=== PATIENT | male | born 1990 | race Caucasian/White ===

== ENCOUNTER 2016-04-16 16:33 | Emergency (ER) | payer BC, OTHER ==
[2016-04-16] MEDS ORDERED: SODIUM CHLORIDE 0.9% 1,000 ML IV STA (16:46)
[2016-04-16] MEDS ORDERED: ONDANSETRON 4 MG/2 ML VIAL IVP STA (16:46)
[2016-04-16] MEDS ORDERED: KETOROLAC 30 MG/ML 1 ML VIAL IVP STA (16:46)
[2016-04-16] MEDS ORDERED: MORPHINE SULFATE 4 MG/ML SYRINGE IVP STA (16:46)
--- NOTE | 2016-04-16 16:52 | ED ---
Abdominal Pain HPI - General Chief Complaint: Abdominal Pain Stated Complaint: Side Pain Time Seen by Provider: 04/16/16 16:41 Source: patient Mode of arrival: wheelchair Limitations: no limitations - History of Present Illness Initial Comments: Patient's a 25-year-old male presenting with left flank pain which radiates to the groin. Patient states pain started an hour prior to arrival. Nothing tried for pain. Patient is unable to sit still due to pain. Mom states family history of kidney stones. Patient admits to drinking a lot of soda. Admits to dysuria. Denies fever, chills, chest, shortness breath, vomiting, diarrhea. - Related Data Previous Rx's Medication Instructions Recorded HYDROcodone/APAP 5-325MG [Newton 5] 1 each PO Q4HR PRN #20 tab 04/16/16 Ibuprofen [Motrin] 600 mg PO Q6HR PRN #20 tab 04/16/16 Ondansetron [Zofran ODT] 4 mg PO Q8HR #12 tab 04/16/16 Allergies Allergy/AdvReac Type Severity Reaction Status Date / Time No Known Allergies Allergy Verified 04/16/16 16:52 Review of Systems ROS Statement: Those systems with pertinent positive or pertinent negative responses have been documented in the HPI. Constitutional: No fever and no chills. HENT: No congestion, no rhinorrhea and no sore throat. Eyes: No discharge and no redness. Respiratory: No cough and no shortness of breath. Cardiovascular: No chest pain and no palpitations. Gastrointestinal: +nausea, no vomiting, +abdominal pain and no diarrhea. Genitourinary: +dysuria and no hematuria. Musculoskeletal: +back pain and no arthralgias. Skin: No pallor and no rash. Neurological: No dizziness and No headaches. ROS Other: All systems not noted in ROS Statement are negative. Past Medical History Past Medical History: No Reported History History of Any Multi-Drug Resistant Organisms: None Reported Past Surgical History: No Surgical Hx Reported Past Psychological History: No Psychological Hx Reported Smoking Status: Current every day smoker Past Alcohol Use History: Daily Past Drug Use History: None Reported General Exam - General Exam Comments Initial Comments: Constitutional: Patient appears well-developed and well-nourished. Severe distress. Head: Normocephalic and atraumatic. Eyes: Conjunctivae and EOM are normal. Right eye exhibits no discharge. Left eye exhibits no discharge. No scleral icterus. Neck: Normal range of motion. Neck supple. Cardiovascular: Normal rate and regular rhythm. No murmur heard. Pulmonary/Chest: Effort normal and breath sounds normal. No respiratory distress. No wheezes. Abdominal: Soft. No distension. Diffuse tenderness. There is no rebound and no guarding. : Exam completed with nurse at bedside no hernias inguinal or femoral. Normal lie of testicles. Musculoskeletal: Normal range of motion. Left CVA tenderness Neurological: Patient alert and oriented to person, place, and time. Skin: Skin is warm and dry. Not diaphoretic. Nursing notes and vitals reviewed. Limitations: no limitations Course Vital Signs 04/16/16 16:37 Temperature 98.1 F Pulse Rate 87 Respiratory 22 Rate Blood Pressure 136/78 O2 Sat by Pulse 100 Oximetry - Reevaluation(s) Reevaluation #1: 04/16/16 17:15 Patient medicated with morphine, Toradol, Zofran and feeling much better. IV fluids infusing. Reevaluation #2: 04/16/16 18:28 Patient given repeated doses of Dilaudid 0.5 mg with improvement of pain. Patient offered hospitalization for intractable pain. Patient states he wants to go home and will return for any worsening pain, nausea/vomiting, fever/ chills. Medical Decision Making - Medical Decision Making Patient is a 25-year-old male presenting with acute onset left-sided flank pain. UA with hematuria. CBC, BMP unremarkable for leukocytosis or impaired kidney function. CT abdomen/pelvis shows a 3 mm obstructive ureteral lithiasis without hydronephrosis. Patient's pain controlled with IV fluids/morphine/ Toradol and Zofran. Patient required a second dose of Dilaudid 0.5 mg. Patient was offered hospitalization for intractable pain however he would like to go home and manage pain with Newton 5 mg, Motrin 600 mg. Prior to discharge, patient was resting in bed. Course of stay improved. Tolerable pain. Discussed physical exam and diagnostic tests with patient. Questions answered and patient is agreeable to discharge with close follow up with Primary Care Physician. Instructed to return to Emergency Department if symptoms worsen. Patient strictly instructed to return for any fever or chills, worsening pain, nausea/ vomiting, altered mental status. - Lab Data Result diagrams: 04/16/16 16:33 04/16/16 16:33 Lab Results 04/16/16 04/16/16 04/16/16 Range/Units 16:33 16:33 16:33 WBC 9.4 (3.8-10.6) k/uL RBC 5.22 (4.30-5.90) m/uL Hgb 14.7 (13.0-17.5) gm/dL Hct 44.7 (39.0-53.0) % MCV 85.6 (80.0-100.0) fL MCH 28.1 (25.0-35.0) pg MCHC 32.8 (31.0-37.0) g/dL RDW 12.4 (11.5-15.5) % Plt Count 196 (150-450) k/uL Neutrophils % 48 % Lymphocytes % 42 % Monocytes % 6 % Eosinophils % 2 % Basophils % 0 % Neutrophils # 4.5 (1.3-7.7) k/uL Lymphocytes # 3.9 (1.0-4.8) k/uL Monocytes # 0.5 (0-1.0) k/uL Eosinophils # 0.2 (0-0.7) k/uL Basophils # 0.0 (0-0.2) k/uL Sodium 142 (137-145) mmol/L Potassium 3.1 L (3.5-5.1) mmol/L Chloride 104 (98-107) mmol/L Carbon Dioxide 20 L (22-30) mmol/L Anion Gap 18 mmol/L BUN 13 (9-20) mg/dL Creatinine 0.95 (0.66-1.25) mg/dL Est GFR (MDRD) Af Amer >60 (>60 ml/min/1.73 sqM) Est GFR (MDRD) Non-Af >60 (>60 ml/min/1.73 sqM) Glucose 129 H (74-99) mg/dL Calcium 9.9 (8.4-10.2) mg/dL Magnesium 1.7 (1.6-2.3) mg/dL Total Bilirubin 0.6 (0.2-1.3) mg/dL AST 22 (17-59) U/L ALT 29 (21-72) U/L Alkaline Phosphatase 67 (38-126) U/L Total Protein 7.5 (6.3-8.2) g/dL Albumin 4.8 (3.5-5.0) g/dL Lipase 38 (23-300) U/L Urine Color Yellow Urine Appearance Clear (Clear) Urine pH 5.5 (5.0-8.0) Ur Specific Tyler 1.024 (1.001-1.035) Urine Protein Trace H (Negative) Urine Glucose (UA) Negative (Negative) Urine Ketones Trace H (Negative) Urine Blood Moderate H (Negative) Urine Nitrate Negative (Negative) Urine Bilirubin Negative (Negative) Urine Urobilinogen <2.0 (<2.0) mg/dL Ur Leukocyte Esterase Trace H (Negative) Urine RBC >182 H (0-5) /hpf Urine WBC 6 H (0-5) /hpf Ur Squamous Epith Cells <1 (0-4) /hpf Urine Mucus Few H (None) /hpf Disposition Clinical Impression: Ureterolithiasis Disposition: HOME SELF-CARE Condition: Good Prescriptions: HYDROcodone/APAP 5-325MG [Newton 5] 1 each PO Q4HR PRN #20 tab PRN Reason: Pain Ibuprofen [Motrin] 600 mg PO Q6HR PRN #20 tab PRN Reason: Pain Ondansetron [Zofran ODT] 4 mg PO Q8HR #12 tab Referrals: Dariela Nunez MD [Primary Care Provider] - 1-2 days Dillon Barbosa MD [STAFF PHYSICIAN] - 1-2 days
[2016-04-16 17:08] LABS: CH 28.9; MCV 85.6 fL (80.0-100.0); RDW 12.4 % (11.5-15.5)
[2016-04-16 17:15] LABS: Appearance,Urine Clear (Clear); Bilirubin,Urine Negative (Negative); Glucose,Urine (UA) Negative (Negative); Ketones,Urine Trace (Negative); Leukocyte Esterase,Urine Trace (Negative); Mucus,Urine Few /hpf; Nitrite,Urine Negative (Negative); PH, Urine 5.5 (5.0-8.0); Particle Count 6684; Protein,Urine Trace (Negative); RBC,Urine >182 /hpf (0-5); Specific Gravity,Urine 1.024 (1.001-1.035); Squamous Epithelial Cell,Urine <1 /hpf (0-4); UA Billing (MACRO vs. MICRO) MICRO; Urobilinogen,Urine <2.0 mg/dL (<2.0); WBC,Urine 6 /hpf (0-5)
[2016-04-16 17:17] LABS: Basophils % (A) 0 %; CHCM 33.9; Eosinophils # (A) 0.2 k/uL (0-0.7); Eosinophils % (A) 2 %; HCT 44.7 % (39.0-53.0); HDW 2.46; HGB 14.7 gm/dL (13.0-17.5); Luc # (Auto) 0.24; Luc % (Auto) 3; Lymphocytes # (A) 3.9 k/uL (1.0-4.8); Lymphocytes % (A) 42 %; MCH 28.1 pg (25.0-35.0); MCHC 32.8 g/dL (31.0-37.0); Mean Platelet Volume 8.4; Monocytes # (A) 0.5 k/uL (0-1.0); Monocytes % (A) 6 %; Neutrophils # (A) 4.5 k/uL (1.3-7.7); Neutrophils % (A) 48 %; RBC 5.22 m/uL (4.30-5.90); WBC 9.4 k/uL (3.8-10.6); WBC (Perox) 9.25
[2016-04-16 17:21] LABS: ALT 29 U/L (21-72); AST 22 U/L (17-59); Alkaline Phosphatase 67 U/L (38-126); Anion Gap 18 mmol/L; Blood Urea Nitrogen 13 mg/dL (9-20); Calcium 9.9 mg/dL (8.4-10.2); Carbon Dioxide 20 mmol/L (22-30); Chloride 104 mmol/L (98-107); Glucose 129 mg/dL (74-99); Magnesium 1.7 mg/dL (1.6-2.3); Non-African American GFR(MDRD) >60 (>60 ml/min/1.73 sqM); Potassium 3.1 mmol/L (3.5-5.1); Sodium 142 mmol/L (137-145); Total Bilirubin 0.6 mg/dL (0.2-1.3); Total Protein 7.5 g/dL (6.3-8.2)
[2016-04-16] MEDS ORDERED: HYDROmorphone 1 MG/ML 1 ML SYRINGE IVP STA (17:31)
--- NOTE | 2016-04-16 18:04 | CT ---
EXAMINATION TYPE: CT renal stones wo con DATE OF EXAM: 04/16/2016 5:33 PM COMPARISON: NONE HISTORY: 25-year-old male left-sided flank pain. TECHNIQUE: Contiguous axial scanning of the abdomen and pelvis without IV contrast. Coronal and sagit snehal reconstructions performed. CT DLP: 401.3 mGycm Automated exposure control for dose reduction was used. FINDINGS: Is normal size without pericardial effusion. Lung bases clear without pleural effusion. Noncontrast appearance of the liver, gallbladder, adrenal glands, spleen with small hilar splenule, a nd pancreas show no gross abnormality. Numerous scattered nonenlarged borderline enlarged mesenteric lymph nodes measure up to 5 mm and are probably reactive. Nonobstructive 6 mm right lower pole renal calculus. A few punctate 2 mm calculi mid pole left kidney. A punctate 1 to 2 mm calculus is noted in the upper third left ureter axial image 56 with a larger 3 mm calculus distally just prior to the left UVJ, axial image 123. Minimal left-sided pelvicaliectasis . No dilated small bowel, free fluid, or free air. Normal appendix. Mild stool within the right hemicol on. No pericolonic inflammatory change. Bladder nondistended. A phlebolith within the right hemipelvis. No abnormal fluid collection in the p isiah or pelvic lymphadenopathy seen. 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 No osseous destructive process. IMPRESSION: 1. A 3 MM CALCULUS IN THE DISTAL LEFT URETER WITH MINIMAL FULLNESS OF THE LEFT RENAL COLLECTING SYSTE M. NO BRANDON HYDRONEPHROSIS. AN ADDITIONAL TINY 1 TO 2 MM CALCULUS IS NOTED IN THE UPPER THIRD LEFT UR ETER. 2. A COUPLE BILATERAL NONOBSTRUCTIVE RENAL CALCULI MEASURING UP TO 6 MM ON THE RIGHT. 3. SCATTERED NONENLARGED AND BORDERLINE ENLARGED MESENTERIC LYMPH NODES ARE PROBABLY REACTIVE/POST IN FLAMMATORY. 4. RIGHT L5 PARS DEFECT. THERE IS SOME SCLEROSIS AT THE LEFT-SIDED L5 PARS SUGGESTING SOME STRESS HERNANDO CTION. QUERY ANY LOW BACK PAIN.
[2016-04-16 18:29] VITALS: BP 132/69; PULSE 70; RESP 18; TEMP 97.9
== END 2016-04-16 18:36 | disposition home or self-care (01) ==
LOC: EC 16:33
DX: N20.1 Calculus of ureter (principal); F17.200 Nicotine dependence, unspecified, uncomplicated
CPT/HCPCS: 80053; 83690; 83735; 85025; 81001; 87086; 74150; 99284; 96374; 96375 ×3; 96361; J2270; J2405; J1885; J1170

== ENCOUNTER 2016-07-21 12:23 | Emergency (ER) | payer OTHER ==
[2016-07-21 12:47] VITALS: BP 138/85; PULSE 71; RESP 18; TEMP 97.2
--- NOTE | 2016-07-21 12:54 | ED ---
ENT HPI - General Chief complaint: Dental/Oral Stated complaint: Dental Pain Time Seen by Provider: 07/21/16 12:48 Source: patient, RN notes reviewed Mode of arrival: ambulatory Limitations: no limitations - History of Present Illness Initial comments: 26-year-old male presented emergency Department chief complaint dental pain. Patient states pain is been going on for last 3-4 weeks. Patient states that he has insurance problems and has been unable to follow-up with dentist. Patient states that he cannot see the dental clinic initially because he canceled to appointments in the past. Patient denies fever, chills. Patient states she's had severe pain. Medications aren't working and is concerned about possible infection. No fevers no chills no neck pain no headache - Related Data Previous Rx's Medication Instructions Recorded Ibuprofen [Motrin] 600 mg PO Q6HR PRN #20 tab 04/16/16 Acetaminophen-Codeine 300-30mg 1 tab PO Q4H PRN #20 tablet 07/21/16 [Tylenol #3] Penicillin V Potassium [Pen Vee K] 500 mg PO QID #40 tab 07/21/16 Allergies Allergy/AdvReac Type Severity Reaction Status Date / Time No Known Allergies Allergy Verified 07/21/16 12:47 Review of Systems ROS Statement: Those systems with pertinent positive or pertinent negative responses have been documented in the HPI. ROS Other: All systems not noted in ROS Statement are negative. Past Medical History Past Medical History: No Reported History History of Any Multi-Drug Resistant Organisms: None Reported Past Surgical History: No Surgical Hx Reported Additional Past Surgical History / Comment(s): (L) arm surgery Past Psychological History: No Psychological Hx Reported Smoking Status: Current every day smoker Past Alcohol Use History: Daily Past Drug Use History: None Reported General Exam Limitations: no limitations General appearance: alert, in no apparent distress Head exam: Present: atraumatic, normocephalic, normal inspection Eye exam: Present: normal appearance, PERRL, EOMI. Absent: scleral icterus, conjunctival injection, periorbital swelling ENT exam: Present: mucous membranes moist, TM's normal bilaterally, normal external ear exam. Absent: normal exam, normal oropharynx (Poor dentition, multiple dental caries noted no drainable abscess) Neck exam: Present: normal inspection, full ROM. Absent: tenderness, meningismus, lymphadenopathy Respiratory exam: Present: normal lung sounds bilaterally. Absent: respiratory distress, wheezes, rales, rhonchi, stridor Cardiovascular Exam: Present: regular rate, normal rhythm, normal heart sounds. Absent: systolic murmur, diastolic murmur, rubs, gallop, clicks Course Vital Signs 07/21/16 12:43 Temperature 97.2 F L Pulse Rate 71 Respiratory 18 Rate Blood Pressure 138/85 O2 Sat by Pulse 100 Oximetry Medical Decision Making - Medical Decision Making 26-year-old male presented for dental pain. Patient was placed on antibiotics, Tylenol codeine. Patient follow-up with dentist as directed. Return parameters were discussed. Disposition Clinical Impression: Dental caries, Toothache Disposition: HOME SELF-CARE Condition: Stable Instructions: Dental Caries (ED) Additional Instructions: Please return to the Emergency Department if symptoms worsen or any other concerns.Please follow up with the [facility]. [facility] [place] [address]. Phone number for new patients or [phone] for existing patients. Prescriptions: Acetaminophen-Codeine 300-30mg [Tylenol #3] 1 tab PO Q4H PRN #20 tablet PRN Reason: pain Penicillin V Potassium [Pen Vee K] 500 mg PO QID #40 tab Referrals: Harpreet Thorne MD [Primary Care Provider] - 1-2 days Time of Disposition: 12:53
== END 2016-07-21 13:02 | disposition home or self-care (01) ==
LOC: EC 12:23
DX: K02.9 Dental caries, unspecified (principal); F17.200 Nicotine dependence, unspecified, uncomplicated
CPT/HCPCS: 99282

== ENCOUNTER 2016-08-29 11:57 | Emergency (ER) | payer OTHER ==
[2016-08-29 12:20] VITALS: BP 123/70; PULSE 90; RESP 18; TEMP 97.2
[2016-08-29] MEDS ORDERED: CLINDAMYCIN 150 MG CAP PO STA (12:53)
[2016-08-29] MEDS ORDERED: Acetaminophen-Codeine 300-30mg TAB PO STA (12:54)
--- NOTE | 2016-08-29 13:05 | ED ---
ENT HPI - General Chief complaint: Dental/Oral Stated complaint: Facial Pain Time Seen by Provider: 08/29/16 12:22 Source: patient Mode of arrival: ambulatory Limitations: no limitations - History of Present Illness Initial comments: Patient is a 26-year-old white male presenting to the emergency department with chief complaint of right-sided jaw pain radiating up to his right ear and down his right neck. Patient states he's had this pain for approximately a month and has had 4 teeth pulled within the last 3 weeks with the last one pulled on the lower right last week. Patient states that although he has had facial pain and dental pain for about a month it has increased in character over the last week to the point where he is having a difficult time sleeping and functioning at work. Pain is described as sharp, currently rated 8 out of 10, constant, exacerbated with opening his jaw. Patient states he has tried oral lidocaine and Motrin at home without relief. Patient does admit to smoking. Patient states he has a history of TMJ and grinds his teeth at night. Patient denies chills, fevers, nausea, vomiting, shortness of breath, chest pain, abdominal pain, numbness or tingling. Patient denies trismus. Patient states he follows with dentist in [facility] but hasn't seen his dentist since last week. - Related Data Previous Rx's Medication Instructions Recorded Acetaminophen-Codeine 300-30mg 1 tab PO Q4H PRN #12 tablet 08/29/16 [Tylenol #3] Acetaminophen-Codeine 300-30mg 1 tab PO Q4H PRN #20 tablet 08/29/16 [Tylenol w/codeine #3] Clindamycin [Cleocin] 450 mg PO Q8H #30 capsule 08/29/16 Cyclobenzaprine [Flexeril] 10 mg PO HS #7 tab 08/29/16 Naproxen 500 mg PO BID #14 tablet 08/29/16 Allergies Allergy/AdvReac Type Severity Reaction Status Date / Time No Known Allergies Allergy Verified 08/29/16 12:20 Review of Systems ROS Statement: Those systems with pertinent positive or pertinent negative responses have been documented in the HPI. ROS Other: All systems not noted in ROS Statement are negative. Past Medical History Past Medical History: No Reported History History of Any Multi-Drug Resistant Organisms: None Reported Past Surgical History: No Surgical Hx Reported Additional Past Surgical History / Comment(s): (L) arm surgery Past Psychological History: No Psychological Hx Reported Smoking Status: Current every day smoker Past Alcohol Use History: Daily Past Drug Use History: None Reported General Exam Limitations: no limitations General appearance: alert, in distress Head exam: Present: atraumatic, normocephalic, normal inspection Eye exam: Present: normal appearance, PERRL, EOMI. Absent: scleral icterus, conjunctival injection, periorbital swelling, periorbital tenderness ENT exam: Present: normal oropharynx, mucous membranes moist, TM's normal bilaterally, normal external ear exam Expanded Mouth exam: Present: tongue normal. Absent: drooling, trismus Teeth exam: Present: other (Possible dry socket where tooth #30 was pulled. Tender to touch.) Throat exam: normal inspection. negative: tonsillar erythema, tonsillomegaly, tonsillar exudate, R peritonsillar mass, L peritonsillar mass Neck exam: Present: tenderness (Tenderness to right sided neck with palpation), full ROM. Absent: meningismus, lymphadenopathy Respiratory exam: Present: normal lung sounds bilaterally. Absent: respiratory distress, wheezes, rales, rhonchi Cardiovascular Exam: Present: regular rate, normal rhythm, normal heart sounds. Absent: systolic murmur, diastolic murmur, rubs, gallop, clicks GI/Abdominal exam: Present: soft, normal bowel sounds. Absent: distended, tenderness Back exam: Present: normal inspection, full ROM Neurological exam: Present: alert, oriented X3, normal gait, other (No focal deficits noted.). Absent: motor sensory deficit Psychiatric exam: Present: normal affect, normal mood Skin exam: Present: warm, dry, intact, normal color Course Vital Signs 08/29/16 08/29/16 12:18 13:16 Temperature 97.2 F L 97.2 F L Pulse Rate 90 90 Respiratory 18 18 Rate Blood Pressure 123/70 123/70 O2 Sat by Pulse 98 98 Oximetry Medical Decision Making - Medical Decision Making Patient is a 26-year-old male presenting with left-sided jaw pain and pain to area of pulled tooth #30 possibly due to TMJ syndrome and dry socket. Patient placed on antibiotics, pain medication, and muscle relaxant. Patient instructed to purchase mouth guard to wear at night. Patient instructed to follow-up with dentist in next 24-48 hours. Patient instructed to follow-up with primary care physician. Patient agrees to treatment plan. Discharge instructions and return parameters reviewed. Disposition Clinical Impression: Dry tooth socket, TMJ arthralgia Disposition: HOME SELF-CARE Instructions: Temporomandibular Disorder (ED), Dry Socket (ED) Additional Instructions: This antibiotic as prescribed. Continue naproxen and Tylenol 3 for pain as needed. Continue Flexeril 10 mg at night. Stop smoking. May purchase over-the -counter mouthguard to be worn at night while sleeping. Follow-up with [place] [facility] in next 24-48 hours. Follow-up with primary care physician as directed. Please return to the emergency department if symptoms do not improve or get worse. Prescriptions: Acetaminophen-Codeine 300-30mg [Tylenol #3] 1 tab PO Q4H PRN #12 tablet PRN Reason: Pain Acetaminophen-Codeine 300-30mg [Tylenol w/codeine #3] 1 tab PO Q4H PRN #20 tablet PRN Reason: pain Clindamycin [Cleocin] 450 mg PO Q8H #30 capsule Cyclobenzaprine [Flexeril] 10 mg PO HS #7 tab Naproxen 500 mg PO BID #14 tablet Referrals: Harpreet Thorne MD [Primary Care Provider] - 1-2 days Time of Disposition: 13:05
== END 2016-08-29 13:16 | disposition home or self-care (01) ==
LOC: EC 11:57
DX: M27.3 Alveolitis of jaws (principal); M26.622 Arthralgia of left temporomandibular joint; F17.200 Nicotine dependence, unspecified, uncomplicated
CPT/HCPCS: 99283

== ENCOUNTER 2016-11-25 14:12 | Emergency (ER) | payer OTHER ==
[2016-11-25] MEDS ORDERED: oxyCODONE-APAP 5-325MG 1 EACH TAB PO STA (15:16)
[2016-11-25] MEDS ORDERED: SODIUM CHLORIDE 0.9% 1,000 ML IV ONE (15:16)
--- NOTE | 2016-11-25 15:25 | ED ---
General Adult HPI - General Chief complaint: Fall Stated complaint: 6' fall off ladder Time Seen by Provider: 11/25/16 15:10 Source: patient, family, RN notes reviewed Mode of arrival: EMS Limitations: no limitations - History of Present Illness Initial comments: Chief complaint history of present illness this is a 26-year-old male who approximately 10 days ago fell off a ladder 10 feet onto his right side. His mother found him outside on the ground. No apparent loss of consciousness the patient is not complaining of any head or neck injury. She reports she stayed on the ground for 5-10 minutes then got up and walked into the house. He's been managed to work each day since then. But toward the end of the day the pain gets worse. He is at this time complaining of pain to his right scapula, right lateral rib cage. Right upper quadrant. Right hip right pelvis. At a time nose no apparent loss of consciousness. - Related Data Previous Rx's Medication Instructions Recorded Ibuprofen [Motrin] 600 mg PO Q6HR PRN #20 tab 11/25/16 Allergies Allergy/AdvReac Type Severity Reaction Status Date / Time No Known Allergies Allergy Verified 11/25/16 16:10 Review of Systems ROS Statement: Those systems with pertinent positive or pertinent negative responses have been documented in the HPI. Review of systems. Currently no headache or visual acuity changes denies any shortness of breath except for a deep breath. No change in appetite. No difficulty urinating or bowel movements. He reports that today at work he has significant discomfort to those same areas that were injured in the fall 10 days ago. All systems are reviewed. Past medical problems none. Surgeries plate in the left arm from previous fracture. Family history there is lung cancer in the family. The patient has no known ALLERGIES. He does smoke strongly encouraged to stop. ROS Other: All systems not noted in ROS Statement are negative. Past Medical History Past Medical History: No Reported History History of Any Multi-Drug Resistant Organisms: None Reported Past Surgical History: No Surgical Hx Reported Additional Past Surgical History / Comment(s): (L) arm surgery Past Psychological History: No Psychological Hx Reported Smoking Status: Current every day smoker Past Alcohol Use History: Daily Past Drug Use History: None Reported General Exam - General Exam Comments Initial Comments: General: The patient is awake and alert, complains of worsening pain for fall at 10 days ago. Vital signs temp 97.1 pulse 72 respiratory rate 18 pulse ox on percent room air blood pressure 127/67 Eye: Pupils are equal, round and reactive to light, extra-ocular movements are intact ; there is normal conjunctiva bilaterally. No signs of icterus. Ears, nose, mouth and throat: There are moist mucous membranes and no oral lesions. Neck: The neck is supple, there is no tenderness. Cardiovascular: There is a regular rate and rhythm. No murmur, rub or gallop is appreciated. There is some discomfort to the lower right lateral rib cage Respiratory: Lungs are clear to auscultation, respirations are non-labored, breath sounds are equal. No wheezes, stridor, rales, or rhonchi. Patient does have pain to the right scapular region. No bruises noted in the area. Range of motion is near normal. Gastrointestinal: Mild tenderness to the right upper quadrant with deep palpation no organomegaly appreciated. Normal bowel sounds. Mild flank discomfort. Back: Patient denies head mid back or low back pain. Musculoskeletal: Pain to the right hip right pelvic area. Neurological: CN II-XII intact, There are no obvious motor or sensory deficits. Coordination appears grossly intact. Speech is normal. No focal or lateralizing findings Skin: Skin is warm and dry and no rashes or lesions are noted. Limitations: no limitations Course Vital Signs 11/25/16 11/25/16 11/25/16 14:52 16:29 18:16 Temperature 97.1 F L 97.6 F Pulse Rate 72 63 64 Respiratory 18 15 18 Rate Blood Pressure 127/67 112/69 115/68 O2 Sat by Pulse 100 99 98 Oximetry 11/25/16 18:47 Temperature Pulse Rate 54 L Respiratory 18 Rate Blood Pressure 122/64 O2 Sat by Pulse 98 Oximetry Medical Decision Making - Medical Decision Making Tray of the right hip and pelvis was done and reviewed by radiologist her final impression is no acute fracture dislocation of the pelvis or the right hip. As read by Dr. Crawford X-ray of the chest was done AP and lateral views and reviewed by radiologist his impression is no acute pulmonary process. No displaced fracture. As read by Dr. Crawford Sure the scapula was done and reviewed by radiologist her impression is no evidence of scapular fracture or acromioclavicular joint space widening. As read by Dr. Crawford Labs show potassium 3.7 BUN 12 creatinine 0.65 GFR greater than 60. Glucose 142. CT the abdomen was done because the patient fell 10 days ago had discomfort to the right upper quadrant with referred pain to the shoulder. Entire report was reviewed of the CAT scan of the abdomen was done with IV contrast. The final impression is no evidence of osseous or visceral injury. No free fluid or pneumoperitoneum. No findings to correspond to the patient's right upper quadrant pain. #2 redemonstration of bilateral nonobstructive renal calculi. As read by Dr. Crawford Results of all labs and x-ray shared with patient at bedside. The patient will be advised to take pain medication as directed. Follow-up with his family physician Dr. Harpreet Thorne. - Lab Data Result diagrams: 11/25/16 15:30 Lab Results 11/25/16 Range/Units 15:30 Sodium 138 (137-145) mmol/L Potassium 3.7 (3.5-5.1) mmol/L Chloride 107 (98-107) mmol/L Carbon Dioxide 19 L (22-30) mmol/L Anion Gap 12 mmol/L BUN 12 (9-20) mg/dL Creatinine 0.65 L (0.66-1.25) mg/dL Est GFR (MDRD) Af Amer >60 (>60 ml/min/1.73 sqM) Est GFR (MDRD) Non-Af >60 (>60 ml/min/1.73 sqM) Glucose 142 H (74-99) mg/dL Calcium 9.7 (8.4-10.2) mg/dL Total Bilirubin 0.7 (0.2-1.3) mg/dL AST 25 (17-59) U/L ALT 26 (21-72) U/L Alkaline Phosphatase 71 (38-126) U/L Total Protein 7.1 (6.3-8.2) g/dL Albumin 4.8 (3.5-5.0) g/dL Disposition Clinical Impression: Fall, Contusion, Strain of back, Contusion, hip and thigh Disposition: HOME SELF-CARE Condition: Fair Instructions: Costochondritis (ED), Contusion in Adults (ED), Rib Contusion (ED ) Additional Instructions: Use ibuprofen 6R milligrams every 6 hours for discomfort. Follow-up with family physician. Prescriptions: Ibuprofen [Motrin] 600 mg PO Q6HR PRN #20 tab PRN Reason: Pain Referrals: Harpreet Thorne MD [Primary Care Provider] - 1-2 days Time of Disposition: 18:52
[2016-11-25 15:49] LABS: ALT 26 U/L (21-72); AST 25 U/L (17-59); Alkaline Phosphatase 71 U/L (38-126); Anion Gap 12 mmol/L; Blood Urea Nitrogen 12 mg/dL (9-20); Calcium 9.7 mg/dL (8.4-10.2); Carbon Dioxide 19 mmol/L (22-30); Chloride 107 mmol/L (98-107); Glucose 142 mg/dL (74-99); Non-African American GFR(MDRD) >60 (>60 ml/min/1.73 sqM); Potassium 3.7 mmol/L (3.5-5.1); Sodium 138 mmol/L (137-145); Total Bilirubin 0.7 mg/dL (0.2-1.3); Total Protein 7.1 g/dL (6.3-8.2)
[2016-11-25 16:30] VITALS: TEMP 97.6
--- NOTE | 2016-11-25 16:30 | XR ---
EXAMINATION TYPE: XR chest 2V DATE OF EXAM: 11/25/2016 COMPARISON: NONE HISTORY: Right-sided pain after fall TECHNIQUE: Frontal and lateral views of the chest are obtained. FINDINGS: There is no focal air space opacity, pleural effusion, or pneumothorax seen. The cardiac silhouette size is within normal limits. No displaced fracture is seen. IMPRESSION: No acute cardiopulmonary process. No displaced fracture.
--- NOTE | 2016-11-25 16:34 | XR ---
EXAMINATION TYPE: XR scapula RT DATE OF EXAM: 11/25/2016 COMPARISON: NONE HISTORY: Pain after falling off of a ladder. TECHNIQUE: 2 views of the right scapula were obtained. FINDINGS: No scapular fracture is identified. No evidence of dislocation of the right shoulder. Clavi david and its visualized portions appear intact. No widening of the acromioclavicular space. No displac ed rib fractures. No visualized pneumothorax in the right lung. IMPRESSION: No evidence of scapular fracture or acromioclavicular joint space widening.
--- NOTE | 2016-11-25 16:35 | XR ---
EXAMINATION TYPE: XR Hip RT and AP Pelvis DATE OF EXAM: 11/25/2016 COMPARISON: NONE HISTORY: Pelvic pain after fall off of a ladder 6-8 weeks ago. TECHNIQUE: A single AP view of the pelvis is obtained. Two views of the right hip are obtained. FINDINGS: There is no acute fracture/dislocation evident in the pelvis. The hip and sacroiliac join ts appear symmetric and unremarkable. The overlying soft tissue appears unremarkable. Two views of right hip show no acute fracture or dislocation. No focal lytic or sclerotic lesion see n in the proximal right femur. The overlying soft tissue is unremarkable. IMPRESSION: There is no acute fracture or dislocation in the pelvis or right hip.
[2016-11-25] MEDS ORDERED: RX INFO: IV CONTRAST WAS GIVEN 1 EACH MISC MISCELLANE PRN (17:03)
--- NOTE | 2016-11-25 18:12 | CT ---
EXAMINATION TYPE: CT abdomen pelvis wo/w con DATE OF EXAM: 11/25/2016 COMPARISON: 04/16/2016 HISTORY: RUQ pain after fall injury x2 weeks ago. CT DLP: 960.8 mGycm Automated exposure control for dose reduction was used. TECHNIQUE: Helical acquisition of images was performed from the lung bases through the pelvis. CONTRAST: Performed without Oral Contrast and without and with IV Contrast, patient injected with 100 mL of Omn ipaque 300. FINDINGS: LUNG BASES: No significant abnormality is appreciated. LIVER/GB: Subcentimeter hypoattenuated hepatic lesion that is too small to accurately characterize is seen near the hepatic dome within the right lobe of the liver. Hypoattenuated geographic triangular region is seen in segment IVb near the fissure for the ligamentum teres, most compatible with focal f atty infiltration. No perihepatic fluid collection or hepatic laceration is identified. Gallbladder i s unremarkable. PANCREAS: No ductal dilatation. Pancreatic parenchyma enhances homogeneously. SPLEEN: No laceration or subcapsular hematoma is noted. ADRENALS: No significant abnormality is seen. KIDNEYS: Bilateral nonobstructing renal calculi are seen, largest on the right in the inferior pole m easuring 5 mm and the largest on the left in the superior pole measuring 4 mm. At least one additiona l calculi is seen on the right. FREE AIR: No free air is visualized. RETROPERITONEAL ADENOPATHY: None visualized REPRODUCTIVE ORGANS: No significant abnormality is seen URINARY BLADDER: No significant abnormality is seen. PELVIC ADENOPATHY: None visualized. 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 BOWEL: No significant abnormality is seen. Appendix is air-filled and within normal limits of size. IMPRESSION: 1. NO EVIDENCE OF OSSEOUS OR VISCERAL INJURY. NO FREE FLUID OR PNEUMOPERITONEUM. NO FINDINGS TO CORRE SPOND TO THE PATIENT'S RIGHT UPPER QUADRANT PAIN. 2. REDEMONSTRATION OF BILATERAL NONOBSTRUCTING RENAL CALCULI.
[2016-11-25 18:17] VITALS: RESP 18
[2016-11-25 18:48] VITALS: BP 122/64; PULSE 54
== END 2016-11-25 19:06 | disposition home or self-care (01) ==
LOC: EC 14:12
DX: S39.012A Strain of muscle, fascia and tendon of lower back, initial encounter (principal); S70.01XA Contusion of right hip, initial encounter; S70.11XA Contusion of right thigh, initial encounter; Z98.890 Other specified postprocedural states; W11.XXXA Fall on and from ladder, initial encounter; Y93.89 Activity, other specified
CPT/HCPCS: 36415; 80053; 71020; 73502; 73010; 74178; 99284; 96360; 96361 ×2; Q9967

== ENCOUNTER 2017-04-17 08:15 | Emergency (ER) | payer OTHER ==
[2017-04-17 08:25] VITALS: TEMP 96.7
[2017-04-17] MEDS ORDERED: HYDROmorphone 4 MG/ML 1 ML SYRINGE IVP STA (08:50)
[2017-04-17] MEDS ORDERED: ONDANSETRON 4 MG/2 ML VIAL IVP STA (08:50)
[2017-04-17] MEDS ORDERED: SODIUM CHLORIDE 0.9% 1,000 ML IV STA (08:50)
--- NOTE | 2017-04-17 08:55 | ED ---
General Adult HPI - General Chief complaint: Abdominal Pain Stated complaint: Back pain/poss kidney stones Time Seen by Provider: 04/17/17 08:40 Source: patient, RN notes reviewed, old records reviewed Mode of arrival: ambulatory Limitations: no limitations - History of Present Illness Initial comments: Patient 26-year-old male significant past medical history for kidney stones, presenting with a chief complaint of right flank pain that began a few days ago. Does admit that it seems similar to kidney stones that is had in the past. Does admit some symptoms of nausea vomiting. Does admit to hematuria. Doesn't pressure when he urinates. He does admit the pain starts in the right side of the lower back wrapping around to the right lower abdomen. Patient denies any other complaints or symptoms. Patient denies any recent fever, chills , shortness of breath, chest pain, numbness or tingling, dysuria or hematuria, constipation or diarrhea, headaches or visual changes, or any other complaints. - Related Data Home Medications Medication Instructions Recorded Confirmed Ibuprofen [Motrin] 800 mg PO Q6H PRN 02/25/17 04/17/17 Previous Rx's Medication Instructions Recorded Hydrocodone/Acetaminophen [[place] 1 each PO Q6HR PRN #12 tab 04/17/17 5-325] Ibuprofen [Motrin] 600 mg PO Q6HR PRN #40 day 04/17/17 Ondansetron Odt [Zofran ODT] 4 mg PO Q8HR PRN #20 tab 04/17/17 Tamsulosin [Flomax] 0.4 mg PO DAILY #10 cap 04/17/17 Allergies Allergy/AdvReac Type Severity Reaction Status Date / Time No Known Allergies Allergy Verified 04/17/17 08:33 Review of Systems ROS Statement: Those systems with pertinent positive or pertinent negative responses have been documented in the HPI. ROS Other: All systems not noted in ROS Statement are negative. Past Medical History Past Medical History: No Reported History Additional Past Medical History / Comment(s): kidney stones History of Any Multi-Drug Resistant Organisms: None Reported Past Surgical History: No Surgical Hx Reported Additional Past Surgical History / Comment(s): (L) arm surgery Past Psychological History: No Psychological Hx Reported Smoking Status: Current every day smoker Past Alcohol Use History: Daily Past Drug Use History: None Reported General Exam - General Exam Comments Initial Comments: General: The patient is awake and alert, mild distress. Eye: Pupils are equal, round and reactive to light, extra-ocular movements are intact. No nystagmus. There is normal conjunctiva bilaterally. No signs of icterus. Ears, nose, mouth and throat: There are moist mucous membranes and no oral lesions. Neck: The neck is supple, there is no tenderness or JVD. Cardiovascular: There is a regular rate and rhythm. No murmur, rub or gallop is appreciated. Respiratory: Lungs are clear to auscultation, respirations are non-labored, breath sounds are equal. No wheezes, stridor, rales, or rhonchi. Gastrointestinal: Normal appearance of the abdomen. Normal bowel sounds. Soft on palpation. Patient does have tenderness right lower quadrant and flank area. No rebound tenderness no guarding Musculoskeletal: Normal ROM, no tenderness. Strength 5/5. Sensation intact. Pulses equal bilaterally 2+. Neurological: A&O x 3. CN II-XII intact, There are no obvious motor or sensory deficits. Coordination appears grossly intact. Speech is normal. Skin: Skin is warm and dry and no rashes or lesions are noted. Psychiatric: Cooperative, appropriate mood & affect, normal judgment. Limitations: no limitations Course Vital Signs 04/17/17 08:22 Temperature 96.7 F L Pulse Rate 73 Respiratory 16 Rate Blood Pressure 132/83 O2 Sat by Pulse 100 Oximetry Medical Decision Making - Medical Decision Making Patient reexamined at this time shows no signs of distress. He admits that the symptoms are consistent with kidney stones that is had in the past. His urinalysis review does show some hematuria. No sign of infection at this time. Patient is a 12,000 white count is had multiple bouts of nausea vomiting. Patient's x-ray reviewed and shows possible movement of a previous stone that was seen on a previous x-ray on the right side. Patient's pain is located on the right side. At this time it was discussed about CT. He states he would like to hold off on a CAT scan. He states he does have an appointment with his family doctor coming up next week. Patient will be treated for kidney stone with Flomax and pain medication, nausea medication. He is advised return if symptoms increase worsen. States understanding and is in agreement. - Lab Data Result diagrams: 04/17/17 09:05 04/17/17 09:05 Lab Results 04/17/17 04/17/17 04/17/17 Range/Units 09:05 09:05 09:05 WBC 12.3 H (3.8-10.6) k/uL RBC 4.83 (4.30-5.90) m/uL Hgb 13.9 (13.0-17.5) gm/dL Hct 40.6 (39.0-53.0) % MCV 84.0 (80.0-100.0) fL MCH 28.8 (25.0-35.0) pg MCHC 34.3 (31.0-37.0) g/dL RDW 12.5 (11.5-15.5) % Plt Count 176 (150-450) k/uL Neutrophils % 86 % Lymphocytes % 8 % Monocytes % 5 % Eosinophils % 1 % Basophils % 0 % Neutrophils # 10.5 H (1.3-7.7) k/uL Lymphocytes # 1.0 (1.0-4.8) k/uL Monocytes # 0.6 (0-1.0) k/uL Eosinophils # 0.1 (0-0.7) k/uL Basophils # 0.0 (0-0.2) k/uL Sodium 138 (137-145) mmol/L Potassium 3.4 L (3.5-5.1) mmol/L Chloride 103 (98-107) mmol/L Carbon Dioxide 22 (22-30) mmol/L Anion Gap 13 mmol/L BUN 13 (9-20) mg/dL Creatinine 0.85 (0.66-1.25) mg/dL Est GFR (MDRD) Af Amer >60 (>60 ml/min/1.73 sqM) Est GFR (MDRD) Non-Af >60 (>60 ml/min/1.73 sqM) Glucose 109 H (74-99) mg/dL Calcium 10.0 (8.4-10.2) mg/dL Total Bilirubin 0.8 (0.2-1.3) mg/dL AST 18 (17-59) U/L ALT 23 (21-72) U/L Alkaline Phosphatase 88 (38-126) U/L Total Protein 6.8 (6.3-8.2) g/dL Albumin 4.5 (3.5-5.0) g/dL Amylase 38 (30-110) U/L Lipase 47 (23-300) U/L Urine Color Red Urine Appearance Turbid (Clear) Urine pH 6.5 (5.0-8.0) Ur Specific Staples 1.021 (1.001-1.035) Urine Protein 2+ H (Negative) Urine Glucose (UA) Trace H (Negative) Urine Ketones 1+ H (Negative) Urine Blood Large H (Negative) Urine Nitrite Negative (Negative) Urine Bilirubin Negative (Negative) Urine Urobilinogen 2.0 (<2.0) mg/dL Ur Leukocyte Esterase Small H (Negative) Urine RBC >182 H (0-5) /hpf Urine WBC 7 H (0-5) /hpf Urine Mucus Many H (None) /hpf Disposition Clinical Impression: Kidney stone Disposition: HOME SELF-CARE Condition: Good Instructions: Kidney Stones (ED) Additional Instructions: Please use medication as discussed. Please follow-up with urologist/family doctor in the next 2 days of symptoms have not improved. Please return to emergency room if the symptoms increase or worsen or for any other concerns. Prescriptions: Hydrocodone/Acetaminophen [[place] 5-325] 1 each PO Q6HR PRN #12 tab PRN Reason: Pain Ibuprofen [Motrin] 600 mg PO Q6HR PRN #40 day PRN Reason: Pain Ondansetron Odt [Zofran ODT] 4 mg PO Q8HR PRN #20 tab PRN Reason: Nausea Tamsulosin [Flomax] 0.4 mg PO DAILY #10 cap Referrals: Harpreet Thorne MD [Primary Care Provider] - 1-2 days Jose Barnhart MD [STAFF PHYSICIAN] - 1-2 days Time of Disposition: 10:02
--- NOTE | 2017-04-17 09:16 | XR ---
EXAMINATION TYPE: XR KUB DATE OF EXAM: 04/17/2017 COMPARISON: 02/25/2017 HISTORY: Right-sided flank pain TECHNIQUE: One view abdominal series FINDINGS: The osseous structures are intact. The bowel gas pattern is nonspecific. Right kidney: There is a 5.6 mm calcification overlying the lower pole stable and size and position f rom previous exam. Left kidney: No suspicious calcifications Pelvis: There is a thin linear calcification measuring 1 to 2 mm in diameter near the right UVJ corre late for ureteral calculus. IMPRESSION: 1. Stable right-sided calculus. Additionally there is a tiny calcification not clearly seen within th e previous exam along the right UPJ expected location and may represent a distal ureteral calcificati on.
[2017-04-17 09:18] LABS: Basophils % (A) 0 %; Eosinophils # (A) 0.1 k/uL (0-0.7); Eosinophils % (A) 1 %; HCT 40.6 % (39.0-53.0); HGB 13.9 gm/dL (13.0-17.5); Lymphocytes % (A) 8 %; MCH 28.8 pg (25.0-35.0); MCHC 34.3 g/dL (31.0-37.0); Mean Platelet Volume 8.6; Monocytes # (A) 0.6 k/uL (0-1.0); Monocytes % (A) 5 %; Neutrophils # (A) 10.5 k/uL (1.3-7.7); Neutrophils % (A) 86 %; Platelet Count 176 k/uL (150-450); RBC 4.83 m/uL (4.30-5.90); RDW 12.5 % (11.5-15.5); WBC 12.3 k/uL (3.8-10.6)
[2017-04-17 09:24] LABS: Appearance,Urine Turbid (Clear); Bilirubin,Urine Negative (Negative); Blood,Urine Large (Negative); Color,Urine Red; Glucose,Urine (UA) Trace (Negative); Ketones,Urine 1+ (Negative); Leukocyte Esterase,Urine Small (Negative); Mucus,Urine Many /hpf; Nitrite,Urine Negative (Negative); PH, Urine 6.5 (5.0-8.0); Protein,Urine 2+ (Negative); RBC,Urine >182 /hpf (0-5); Specific Gravity,Urine 1.021 (1.001-1.035); WBC,Urine 7 /hpf (0-5)
[2017-04-17 09:32] LABS: ALT 23 U/L (21-72); AST 18 U/L (17-59); Albumin 4.5 g/dL (3.5-5.0); Alkaline Phosphatase 88 U/L (38-126); Amylase 38 U/L (30-110); Anion Gap 13 mmol/L; Blood Urea Nitrogen 13 mg/dL (9-20); Carbon Dioxide 22 mmol/L (22-30); Chloride 103 mmol/L (98-107); Glucose 109 mg/dL (74-99); Lipase 47 U/L (23-300); Potassium 3.4 mmol/L (3.5-5.1); Sodium 138 mmol/L (137-145); Total Bilirubin 0.8 mg/dL (0.2-1.3); Total Protein 6.8 g/dL (6.3-8.2)
[2017-04-17 10:03] VITALS: BP 115/70; PULSE 85; RESP 18
== END 2017-04-17 10:18 | disposition home or self-care (01) ==
LOC: EC 08:15
DX: N20.0 Calculus of kidney (principal); F17.200 Nicotine dependence, unspecified, uncomplicated
CPT/HCPCS: 36415; 80053; 82150; 83690; 85025; 81001; 74018; 99284; 96374; 96375; 96361; J2405; J1170

== ENCOUNTER 2017-04-19 18:28 | Emergency (ER) | payer OTHER ==
[2017-04-19 19:20] VITALS: TEMP 99
--- NOTE | 2017-04-19 21:38 | ED ---
General Adult HPI - General Chief complaint: Abdominal Pain Stated complaint: POSS KIDNEY STONE, POSS STD Time Seen by Provider: 04/19/17 21:35 Source: patient Mode of arrival: wheelchair Limitations: no limitations - History of Present Illness Initial comments: Javier is a 26-year-old malepast medical history of recurrent kidney stones who was evaluated in our hospital 2 days ago and diagnosed with kidney stones. Patient was discharged home with Flomax. He reports that since that time he has had persistent right-sided flank pain radiating into his right groin and has developed nausea and vomiting. Patient reports he has been able to keep down his Flomax but that he hasn't been able to eat or drink much. He reports that he did think that he passed one kidney stone however he still feels that he has a kidney stone. In addition patient reports that he was told by his significant other that she was diagnosed with Chlamydia in January. He reports that he has had unprotected sexual intercourse with her since this time. He denies any symptoms of dysuria or penile discharge. - Related Data Home Medications Medication Instructions Recorded Confirmed Ibuprofen [Motrin] 800 mg PO Q6H PRN 02/25/17 04/19/17 Previous Rx's Medication Instructions Recorded Hydrocodone/Acetaminophen [[place] 1 each PO Q6HR PRN #12 tab 04/17/17 5-325] Ondansetron Odt [Zofran ODT] 4 mg PO Q8HR PRN #20 tab 04/17/17 Tamsulosin [Flomax] 0.4 mg PO DAILY #10 cap 04/17/17 Allergies Allergy/AdvReac Type Severity Reaction Status Date / Time No Known Allergies Allergy Verified 04/19/17 21:39 Review of Systems ROS Statement: Those systems with pertinent positive or pertinent negative responses have been documented in the HPI. ROS Other: All systems not noted in ROS Statement are negative. Constitutional: Reports: chills Respiratory: Denies: cough Cardiovascular: Denies: chest pain, palpitations Endocrine: Denies: fatigue Gastrointestinal: Reports: abdominal pain, nausea, vomiting Genitourinary: Reports: frequency, hematuria. Denies: discharge Musculoskeletal: Reports: back pain Skin: Denies: rash Neurological: Denies: headache Psychiatric: Denies: anxiety Hematological/Lymphatic: Denies: easy bleeding, easy bruising Past Medical History Past Medical History: No Reported History Additional Past Medical History / Comment(s): kidney stones History of Any Multi-Drug Resistant Organisms: None Reported Past Surgical History: No Surgical Hx Reported Additional Past Surgical History / Comment(s): (L) arm surgery Past Psychological History: No Psychological Hx Reported Smoking Status: Current every day smoker Past Alcohol Use History: Daily Past Drug Use History: None Reported General Exam Limitations: no limitations General appearance: alert, other (appears uncomfortable) Head exam: Present: atraumatic, normocephalic Eye exam: Present: normal appearance, PERRL, EOMI. Absent: scleral icterus, conjunctival injection, periorbital swelling ENT exam: Present: normal exam, mucous membranes moist Neck exam: Present: normal inspection. Absent: tenderness, meningismus, lymphadenopathy Respiratory exam: Present: normal lung sounds bilaterally. Absent: respiratory distress, wheezes, rales, rhonchi, stridor Cardiovascular Exam: Present: regular rate, normal rhythm, normal heart sounds. Absent: systolic murmur, diastolic murmur, rubs, gallop, clicks GI/Abdominal exam: Present: soft, normal bowel sounds. Absent: distended, tenderness, guarding, rebound, rigid Extremities exam: Present: normal inspection, full ROM, normal capillary refill. Absent: tenderness, pedal edema, joint swelling, calf tenderness Back exam: Present: CVA tenderness (R) Neurological exam: Present: alert, oriented X3 Psychiatric exam: Present: normal affect, normal mood Course Vital Signs 04/19/17 19:16 Temperature 99.0 F Pulse Rate 87 Respiratory 20 Rate Blood Pressure 168/82 O2 Sat by Pulse 98 Oximetry - Reevaluation(s) Reevaluation #1: patient was reevaluated, patient was sleeping but when woken does report he is still having pain. Patient was advised he has a large kidney stone he is agreeable to plan for computed tomography scan at this time. 04/19/17 23:51 Reevaluation #2: patient reevaluated, again resting comfortably. Reports his pain is improved during his ER stay. She advised that he has a 6 mm distal ureteral stone with mild [place], at this time patient is agreeable to plan for discharge with scheduled follow-up with urology. Patient is requesting that the received treatment for sexual transmitted infection. 04/20/17 00:50 Medical Decision Making - Medical Decision Making patient was seen and evaluated History was obtained from the patient review of medical record Labs and imaging were ordered labs with mild leukocytosis is likely reaction to pain Normal kidney function Ultrasound reveals new right-sided hydro-, this result was discussed with the patient who is agreeable to plan for computed tomography scan for evaluation of stone burden and location CT reveals a 6 mm distal ureteral stone with mild hydro Patient is been a symptomatic throughout his stay in the emergency department, he was sleeping comfortably and had to be woken for reevaluation. I offered the patient admission for pain management and urology evaluation, however the patient feels comfortable being discharged home. Patient reports that he has narcotic pain medications, Flomax and Zofran at home. Patient also has established follow-up with urology arty scheduled. At this time patient would like treatment for sexual transmitted infections. I'll conversation with the patient regarding social transmitted infections. Patient was inquiring if there is any possibility his significant other had acquired chlamydia in any way other than sexual contact, I advised him that this is highly unlikely as this is sexually transmitted infection. patient expressed emotional upset but was understanding. I advised the patient that the treatment is 1 g of oral azithromycin as well as a shot of Rocephin for possible coinfection with gonorrhea. Patient is agreeable to this. All questions pertaining to care were answered the best my ability patient was discharged home with instructions to return should he develop worsening pain, fever, nausea and vomiting, inability tolerate oral intake or oral medications or any new or concerning symptoms. - Lab Data Result diagrams: 04/19/17 21:40 04/19/17 21:40 Lab Results 04/19/17 04/19/17 04/19/17 Range/Units 21:40 21:40 22:05 WBC 11.5 H (3.8-10.6) k/uL RBC 4.81 (4.30-5.90) m/uL Hgb 13.6 (13.0-17.5) gm/dL Hct 41.2 (39.0-53.0) % MCV 85.8 (80.0-100.0) fL MCH 28.4 (25.0-35.0) pg MCHC 33.0 (31.0-37.0) g/dL RDW 12.4 (11.5-15.5) % Plt Count 179 (150-450) k/uL Neutrophils % 76 % Lymphocytes % 15 % Monocytes % 6 % Eosinophils % 1 % Basophils % 0 % Neutrophils # 8.7 H (1.3-7.7) k/uL Lymphocytes # 1.8 (1.0-4.8) k/uL Monocytes # 0.7 (0-1.0) k/uL Eosinophils # 0.1 (0-0.7) k/uL Basophils # 0.0 (0-0.2) k/uL Sodium 138 (137-145) mmol/L Potassium 3.5 (3.5-5.1) mmol/L Chloride 100 (98-107) mmol/L Carbon Dioxide 25 (22-30) mmol/L Anion Gap 13 mmol/L BUN 14 (9-20) mg/dL Creatinine 1.20 (0.66-1.25) mg/dL Est GFR (MDRD) Af Amer >60 (>60 ml/min/1.73 sqM) Est GFR (MDRD) Non-Af >60 (>60 ml/min/1.73 sqM) Glucose 89 (74-99) mg/dL Calcium 9.5 (8.4-10.2) mg/dL Urine Color Yellow Urine Appearance Clear (Clear) Urine pH 7.0 (5.0-8.0) Ur Specific [place] 1.012 (1.001-1.035) Urine Protein Negative (Negative) Urine Glucose (UA) Negative (Negative) Urine Ketones 2+ H (Negative) Urine Blood Small H (Negative) Urine Nitrite Negative (Negative) Urine Bilirubin Negative (Negative) Urine Urobilinogen <2.0 (<2.0) mg/dL Ur Leukocyte Esterase Negative (Negative) Urine RBC 4 (0-5) /hpf Urine WBC 3 (0-5) /hpf Amorphous Sediment Rare H (None) /hpf Urine Mucus Rare H (None) /hpf Disposition Clinical Impression: Right distal ureteral calculus Disposition: HOME SELF-CARE Condition: Good Instructions: Chlamydia (ED), Kidney Stones (ED), Renal Colic (ED) Referrals: Harpreet Thorne MD [Primary Care Provider] - 1-2 days Time of Disposition: 00:56
[2017-04-19] MEDS ORDERED: KETOROLAC 30 MG/ML 1 ML VIAL IVP ONE (21:45)
[2017-04-19] MEDS ORDERED: ONDANSETRON 4 MG/2 ML VIAL IVP STA (21:45)
[2017-04-19 21:52] LABS: Basophils % (A) 0 %; Eosinophils # (A) 0.1 k/uL (0-0.7); Eosinophils % (A) 1 %; HCT 41.2 % (39.0-53.0); HGB 13.6 gm/dL (13.0-17.5); Lymphocytes # (A) 1.8 k/uL (1.0-4.8); Lymphocytes % (A) 15 %; MCH 28.4 pg (25.0-35.0); MCV 85.8 fL (80.0-100.0); Mean Platelet Volume 8.7; Monocytes # (A) 0.7 k/uL (0-1.0); Monocytes % (A) 6 %; Neutrophils # (A) 8.7 k/uL (1.3-7.7); Neutrophils % (A) 76 %; Platelet Count 179 k/uL (150-450); RBC 4.81 m/uL (4.30-5.90); RDW 12.4 % (11.5-15.5); WBC 11.5 k/uL (3.8-10.6)
[2017-04-19 22:11] LABS: Anion Gap 13 mmol/L; Blood Urea Nitrogen 14 mg/dL (9-20); Calcium 9.5 mg/dL (8.4-10.2); Carbon Dioxide 25 mmol/L (22-30); Chloride 100 mmol/L (98-107); Glucose 89 mg/dL (74-99); Potassium 3.5 mmol/L (3.5-5.1); Sodium 138 mmol/L (137-145)
[2017-04-19 22:32] LABS: Amorphous Sediment,Urine Rare /hpf; Appearance,Urine Clear (Clear); Bilirubin,Urine Negative (Negative); Blood,Urine Small (Negative); Color,Urine Yellow; Glucose,Urine (UA) Negative (Negative); Ketones,Urine 2+ (Negative); Leukocyte Esterase,Urine Negative (Negative); Mucus,Urine Rare /hpf; Nitrite,Urine Negative (Negative); Protein,Urine Negative (Negative); RBC,Urine 4 /hpf (0-5); Specific Gravity,Urine 1.012 (1.001-1.035); Urobilinogen,Urine <2.0 mg/dL (<2.0); WBC,Urine 3 /hpf (0-5)
--- NOTE | 2017-04-19 23:44 | US ---
EXAMINATION TYPE: US kidneys/renal and bladder DATE OF EXAM: 04/19/2017 COMPARISON: NONE CLINICAL HISTORY: Pain. Right flank pain. Hx of kidney stones. EXAM MEASUREMENTS: Right Kidney: 12.4 x 6.3 x 5.4 cm Left Kidney: 11.4 x 5.0 x 4.7 cm Right Kidney: Echogenic foci seen. Left Kidney: No hydronephrosis or masses seen Bladder: anechoic not fully distended.. Echogenic foci seen right kidney with shadowing. IMPRESSION: Kidneys have normal size. There is no atrophy. There are echogenic foci in the right kidney related t o calculi. These measure up to 8 mm. There is mild right-sided hydronephrosis. There is caliectasis. Left kidney shows no obstruction. Bladder was almost empty for the exam. Hydronephrosis appears new c ompared to old CT scan of 11/25/2016.
--- NOTE | 2017-04-20 00:36 | CT ---
EXAMINATION TYPE: CT renal stones wo con DATE OF EXAM: 04/20/2017 HISTORY: right kidney stone CT DLP: 353.20 mGycm. Automated Exposure Control for Dose Reduction was Utilized. TECHNIQUE: CT scan of the abdomen and pelvis is performed without oral or IV contrast. COMPARISON: 11/25/2016 FINDINGS: Lung bases are clear of consolidation. There is no pleural effusion. Heart size is normal. There is no pericardial effusion. Liver spleen pancreas gallbladder appear normal. Bile ducts are not dilated. There is no adrenal mass. There is a 1 cm calculus in the posterior right kidney. There is right-side d hydronephrosis. There appears to be a 6 mm calculus in the distal right ureter near the urinary lan dder. There is no free fluid in the pelvis. Bladder distends smoothly. I see no intestinal wall thickening. There are no dilated loops. Bony structures are intact. There is a 2 mm calculus in the upper pole l eft kidney. Appendix appears normal. CONCLUSION: Obstructing calculus in the distal right ureter. Right renal calculus. Small left renal calculus. Nor mal appendix.
[2017-04-20] MEDS ORDERED: cefTRIAXone 250 MG VIAL IM STA (00:49)
[2017-04-20] MEDS ORDERED: AZITHROMYCIN 500 MG TAB PO STA (00:49)
[2017-04-20 01:12] VITALS: BP 128/83; PULSE 63; RESP 16
== END 2017-04-20 01:18 | disposition home or self-care (01) ==
LOC: EC 18:28
DX: N13.2 Hydronephrosis with renal and ureteral calculous obstruction (principal); D72.829 Elevated white blood cell count, unspecified; F17.200 Nicotine dependence, unspecified, uncomplicated; Z87.442 Personal history of urinary calculi
CPT/HCPCS: 36415; 80048; 85025; 81001; 87491; 87591; 76770; 99284; 96374; 96375; 96372; J2405; J1885; 74150

== ENCOUNTER 2018-11-03 11:25 | Emergency (ER) | payer OTHER ==
--- NOTE | 2018-11-03 11:54 | ED ---
Psych HPI - General Chief Complaint: Psychiatric Symptoms Stated Complaint: EPS eval Time Seen by Provider: 11/03/18 11:37 Source: patient, RN notes reviewed Mode of arrival: ambulatory - History of Present Illness Initial Comments: This a 28-year-old male who states she's had about a 15 year history of alcoholism and drug abuse using oxycodone up to 1000 mg a day and substituted Suboxone when he can get he states he is feeling very depressed for the past 2 days he did admit to drinking a half pint of whiskey this morning it is since taking Suboxone he states he drinks about 1. whiskey a day. He has gone through withdrawals before he is feeling somewhat jittery at this time. He states that he had thought about shooting himself. He denies any fevers chills no nausea or vomiting this time no other medical issues no other modifying factors. No prior admissions for depression MD Complaint: suicidal ideation, feels depressed, other - Related Data Home Medications Medication Instructions Recorded Confirmed No Known Home Medications 11/03/18 11/03/18 Allergies Allergy/AdvReac Type Severity Reaction Status Date / Time No Known Allergies Allergy Verified 11/03/18 11:42 Review of Systems ROS Statement: Those systems with pertinent positive or pertinent negative responses have been documented in the HPI. ROS Other: All systems not noted in ROS Statement are negative. Past Medical History Past Medical History: No Reported History Additional Past Medical History / Comment(s): kidney stones History of Any Multi-Drug Resistant Organisms: None Reported Past Surgical History: No Surgical Hx Reported Additional Past Surgical History / Comment(s): (L) arm surgery Past Psychological History: No Psychological Hx Reported Smoking Status: Current every day smoker Past Alcohol Use History: Daily Past Drug Use History: None Reported General Exam - General Exam Comments Initial Comments: This a well-developed well-nourished awake alert oriented 3 male Limitations: no limitations General appearance: alert, anxious Head exam: Present: atraumatic, normocephalic, normal inspection Eye exam: Present: normal appearance, PERRL, EOMI. Absent: scleral icterus, conjunctival injection, periorbital swelling ENT exam: Present: normal exam, mucous membranes moist Neck exam: Present: normal inspection. Absent: tenderness, meningismus, lymphadenopathy Respiratory exam: Present: normal lung sounds bilaterally. Absent: respiratory distress, wheezes, rales, rhonchi, stridor Cardiovascular Exam: Present: regular rate, normal rhythm, normal heart sounds. Absent: systolic murmur, diastolic murmur, rubs, gallop, clicks GI/Abdominal exam: Present: soft, normal bowel sounds. Absent: distended, tenderness, guarding, rebound, rigid Extremities exam: Present: normal inspection, full ROM, normal capillary refill, other (Some tremor noted). Absent: tenderness, pedal edema, joint swelling, calf tenderness Back exam: Present: normal inspection Neurological exam: Present: alert, oriented X3, CN II-XII intact Psychiatric exam: Present: depressed, anxious, suicidal ideation Skin exam: Present: warm, dry, intact, normal color. Absent: rash Course Vital Signs 11/03/18 11:30 Temperature 97.8 F Pulse Rate 91 Respiratory 18 Rate Blood Pressure 148/91 O2 Sat by Pulse 98 Oximetry Medical Decision Making - Medical Decision Making The patient was evaluated by the psychiatric service and the current plan is to admit him to this facility. Clinical cert was filled out by me. - Lab Data Result diagrams: 11/03/18 12:36 11/03/18 12:36 Lab Results 11/03/18 11/03/18 11/03/18 Range/Units 12:02 12:36 12:36 WBC 7.0 (3.8-10.6) k/uL RBC 5.04 (4.30-5.90) m/uL Hgb 14.4 (13.0-17.5) gm/dL Hct 43.5 (39.0-53.0) % MCV 86.1 (80.0-100.0) fL MCH 28.6 (25.0-35.0) pg MCHC 33.2 (31.0-37.0) g/dL RDW 13.8 (11.5-15.5) % Plt Count 183 (150-450) k/uL Neutrophils % 71 % Lymphocytes % 19 % Monocytes % 7 % Eosinophils % 2 % Basophils % 1 % Neutrophils # 5.0 (1.3-7.7) k/uL Lymphocytes # 1.3 (1.0-4.8) k/uL Monocytes # 0.5 (0-1.0) k/uL Eosinophils # 0.1 (0-0.7) k/uL Basophils # 0.0 (0-0.2) k/uL Sodium 141 (137-145) mmol/L Potassium 3.8 (3.5-5.1) mmol/L Chloride 106 (98-107) mmol/L Carbon Dioxide 25 (22-30) mmol/L Anion Gap 10 mmol/L BUN 8 L (9-20) mg/dL Creatinine 0.66 (0.66-1.25) mg/dL Est GFR (CKD-EPI)AfAm >90 (>60 ml/min/1.73 sqM) Est GFR (CKD-EPI)NonAf >90 (>60 ml/min/1.73 sqM) Glucose 111 H (74-99) mg/dL Calcium 9.5 (8.4-10.2) mg/dL Total Bilirubin 0.4 (0.2-1.3) mg/dL AST 22 (17-59) U/L ALT 20 L (21-72) U/L Alkaline Phosphatase 64 (38-126) U/L Creatine Kinase 121 (55-170) U/L Total Protein 7.0 (6.3-8.2) g/dL Albumin 4.6 (3.5-5.0) g/dL Urine Opiates Screen Not Detected (NotDetected) Ur Oxycodone Screen Detected H (NotDetected) Urine Methadone Screen Not Detected (NotDetected) Ur Propoxyphene Screen Not Detected (NotDetected) Ur Barbiturates Screen Not Detected (NotDetected) U Tricyclic Antidepress Not Detected (NotDetected) Ur Phencyclidine Scrn Not Detected (NotDetected) Ur Amphetamines Screen Not Detected (NotDetected) U Methamphetamines Scrn Not Detected (NotDetected) U Benzodiazepines Scrn Detected H (NotDetected) Urine Cocaine Screen Not Detected (NotDetected) U Marijuana (THC) Screen Detected H (NotDetected) Disposition Clinical Impression: Depression, Suicidal ideation, Alcohol abuse, Narcotic abuse, Smoking Disposition: TRANSFER TO PSYCH HOSP/UNIT Condition: Fair Referrals: None,Stated [Primary Care Provider] - 1-2 days
[2018-11-03 12:38] LABS: Amphetamine Screen,Urine Not Detected (NotDetected); Benzodiazepines Screen,Urine Detected (NotDetected); Cocaine Screen,Urine Not Detected (NotDetected); Methadone Screen, Urine Not Detected (NotDetected); Opiate Screen,Urine Not Detected (NotDetected); Phencyclidine Screen,Urine Not Detected (NotDetected); Tricyclic Antidepressant,Urine Not Detected (NotDetected); Urn Cannabinoid Scrn Detected (NotDetected)
[2018-11-03 12:39] LABS: Barbiturate Screen,Urine Not Detected (NotDetected); Oxycodone Screen, Urine Detected (NotDetected)
[2018-11-03 12:51] LABS: Basophils % (A) 1 %; Eosinophils # (A) 0.1 k/uL (0-0.7); Eosinophils % (A) 2 %; HCT 43.5 % (39.0-53.0); HGB 14.4 gm/dL (13.0-17.5); Lymphocytes # (A) 1.3 k/uL (1.0-4.8); Lymphocytes % (A) 19 %; MCH 28.6 pg (25.0-35.0); MCHC 33.2 g/dL (31.0-37.0); MCV 86.1 fL (80.0-100.0); Mean Platelet Volume 8.7; Monocytes # (A) 0.5 k/uL (0-1.0); Monocytes % (A) 7 %; Neutrophils % (A) 71 %; Platelet Count 183 k/uL (150-450); RBC 5.04 m/uL (4.30-5.90); RDW 13.8 % (11.5-15.5)
[2018-11-03 12:58] LABS: ALT 20 U/L (21-72); AST 22 U/L (17-59); African American GFR (CKD) >90 (>60 ml/min/1.73 sqM); Albumin 4.6 g/dL (3.5-5.0); Alkaline Phosphatase 64 U/L (38-126); Anion Gap 10 mmol/L; Blood Urea Nitrogen 8 mg/dL (9-20); Calcium 9.5 mg/dL (8.4-10.2); Carbon Dioxide 25 mmol/L (22-30); Chloride 106 mmol/L (98-107); Creatine Kinase 121 U/L (55-170); Glucose 111 mg/dL (74-99); Potassium 3.8 mmol/L (3.5-5.1); Sodium 141 mmol/L (137-145); Total Bilirubin 0.4 mg/dL (0.2-1.3)
[2018-11-03] MEDS ORDERED: NICOTINE 21MG/24HR PATCH TRANSDERM STA (14:35)
[2018-11-03 16:06] LABS: Appearance,Urine Clear (Clear); Bilirubin,Urine Negative (Negative); Blood,Urine Negative (Negative); Color,Urine Light Yellow; Glucose,Urine (UA) Negative (Negative); Ketones,Urine Negative (Negative); Leukocyte Esterase,Urine Negative (Negative); Nitrite,Urine Negative (Negative); PH, Urine 6.5 (5.0-8.0); Protein,Urine Negative (Negative); Specific Gravity,Urine 1.011 (1.001-1.035); Urobilinogen,Urine <2.0 mg/dL (<2.0)
[2018-11-03] MEDS ORDERED: ZIPRASIDONE 20 MG CAP PO STA (18:03)
[2018-11-03] MEDS ORDERED: LORazepam 1 MG TAB PO STA (18:03)
[2018-11-03 18:49] VITALS: TEMP 98
[2018-11-04] MEDS ORDERED: NICOTINE 21MG/24HR PATCH TRANSDERM STA (07:28)
[2018-11-04] MEDS ORDERED: LORazepam 1 MG TAB PO STA (07:28)
[2018-11-04 14:36] VITALS: BP 149/82; PULSE 108; RESP 20
== END 2018-11-04 14:40 ==
LOC: EC 11:25
DX: F32.9 Major depressive disorder, single episode, unspecified (principal); R45.851 Suicidal ideations; F10.10 Alcohol abuse, uncomplicated; F11.10 Opioid abuse, uncomplicated; F17.200 Nicotine dependence, unspecified, uncomplicated
CPT/HCPCS: 82075; 36415; 80053; 82550; 85025; 81003; 80306; 99284; S4990 ×2

== ENCOUNTER 2020-02-26 12:38 | Emergency (ER) | payer OTHER ==
[2020-02-26 13:02] VITALS: BP 135/73; PULSE 95; RESP 16; TEMP 98.2
--- NOTE | 2020-02-26 13:15 | ED ---
General Adult HPI - General Chief complaint: Wound/Laceration Stated complaint: Finger laceration, [facility] Time Seen by Provider: 02/26/20 13:05 Source: patient, RN notes reviewed Mode of arrival: ambulatory Limitations: no limitations - History of Present Illness Initial comments: This a 29-year-old male presents emergency Department chief complaint laceration to his left hand third digit. Patient is happened almost 12 hours ago. Patient states that his tetanus is up-to-date last 5 years. Patient states is no bleeding denies any drainage patient offers no complaints. He has no paresthesias. Range of motion. - Related Data Home Medications Medication Instructions Recorded Confirmed No Known Home Medications 11/03/18 11/03/18 Allergies Allergy/AdvReac Type Severity Reaction Status Date / Time No Known Allergies Allergy Verified 02/26/20 12:57 Review of Systems ROS Statement: Those systems with pertinent positive or pertinent negative responses have been documented in the HPI. ROS Other: All systems not noted in ROS Statement are negative. Past Medical History Past Medical History: No Reported History Additional Past Medical History / Comment(s): kidney stones History of Any Multi-Drug Resistant Organisms: None Reported Past Surgical History: No Surgical Hx Reported Additional Past Surgical History / Comment(s): (L) arm surgery Past Psychological History: No Psychological Hx Reported Smoking Status: Current every day smoker Past Alcohol Use History: Daily Past Drug Use History: None Reported General Exam Limitations: no limitations General appearance: alert, in no apparent distress Head exam: Present: atraumatic, normocephalic, normal inspection Respiratory exam: Present: normal lung sounds bilaterally. Absent: respiratory distress, wheezes, rales, rhonchi, stridor Cardiovascular Exam: Present: regular rate, normal rhythm, normal heart sounds. Absent: systolic murmur, diastolic murmur, rubs, gallop, clicks Extremities exam: Present: other (Left hand third digit there is a half centimeter superficial laceration patient's full range of motion neurovascular intact no bleeding) Course Vital Signs 02/26/20 12:58 Temperature 98.2 F Pulse Rate 95 Respiratory 16 Rate Blood Pressure 135/73 O2 Sat by Pulse 96 Oximetry Medical Decision Making - Medical Decision Making Patient has a superficial laceration required no closure. We discussed wound care patient up-to-date on tetanus patient discharged Disposition Clinical Impression: Laceration of finger of left hand Disposition: HOME SELF-CARE Condition: Stable Instructions (If sedation given, give patient instructions): Finger Laceration (ED) Additional Instructions: Please return to the Emergency Department if symptoms worsen or any other co ncerns. Is patient prescribed a controlled substance at d/c from ED?: No Referrals: None,Stated [Primary Care Provider] - 1-2 days Time of Disposition: 13:14
== END 2020-02-26 13:21 | disposition home or self-care (01) ==
LOC: EC 12:38
DX: S61.213A Laceration without foreign body of left middle finger without damage to nail, initial encounter (principal); F17.200 Nicotine dependence, unspecified, uncomplicated; X58.XXXA Exposure to other specified factors, initial encounter
CPT/HCPCS: 99282

== ENCOUNTER 2020-03-14 13:11 | Emergency (ER) | payer OTHER ==
[2020-03-14] MEDS ORDERED: SODIUM CHLORIDE 0.9% 1,000 ML IV ONE (13:37)
[2020-03-14] MEDS ORDERED: cefTRIAXone IN SWFI 1,000 MG/10 ML SYRINGE IVP STA (13:38)
[2020-03-14] MEDS ORDERED: ALBUTEROL HFA INHALER INHALATION STA (13:38)
[2020-03-14] MEDS ORDERED: DEXAMETHASONE SOD PHOSPHATE 10 MG/ML 1 ML VIAL IV STA (13:38)
[2020-03-14] MEDS ORDERED: SODIUM CHLORIDE 0.9% 1,000 ML IV SCH (13:45)
--- NOTE | 2020-03-14 14:03 | XR ---
EXAMINATION TYPE: XR chest 1V portable DATE OF EXAM: 03/14/2020 COMPARISON: Chest x-ray November 25, 2016 HISTORY: Shortness of breath, possible cold 19 pneumonia. TECHNIQUE: Single AP portable frontal upright view of the chest is obtained. FINDINGS: There is diminished inspiration with new patchy bibasilar opacities. The cardiac silhouet te size remains within normal limits. The osseous structures are intact. IMPRESSION: New patchy bibasilar acute infiltrates.
[2020-03-14 14:05] LABS: Basophils # (A) 0.1 k/uL (0-0.2); Basophils % (A) 1 %; Eosinophils # (A) 0.1 k/uL (0-0.7); Eosinophils % (A) 1 %; HCT 40.9 % (39.0-53.0); HGB 13.8 gm/dL (13.0-17.5); Lymphocytes # (A) 0.9 k/uL (1.0-4.8); Lymphocytes % (A) 9 %; MCH 29.5 pg (25.0-35.0); MCHC 33.6 g/dL (31.0-37.0); MCV 87.6 fL (80.0-100.0); Mean Platelet Volume 8.8; Monocytes # (A) 0.9 k/uL (0-1.0); Monocytes % (A) 8 %; Neutrophils # (A) 8.4 k/uL (1.3-7.7); Neutrophils % (A) 79 %; Platelet Count 162 k/uL (150-450); RBC 4.67 m/uL (4.30-5.90); RDW 12.3 % (11.5-15.5); WBC 10.6 k/uL (3.8-10.6)
[2020-03-14 14:18] LABS: ALT 20 U/L (4-49); AST 29 U/L (17-59); African American GFR (CKD) >90 (>60 ml/min/1.73 sqM); Albumin 4.1 g/dL (3.5-5.0); Alkaline Phosphatase 92 U/L (38-126); Anion Gap 8 mmol/L; Blood Urea Nitrogen 10 mg/dL (9-20); Calcium 9.1 mg/dL (8.4-10.2); Carbon Dioxide 24 mmol/L (22-30); Chloride 103 mmol/L (98-107); Glucose 157 mg/dL (74-99); INR 0.9 (<1.2); LDH 525 U/L (313-618); Non-African American GFR(CKD) >90 (>60 ml/min/1.73 sqM); Partial Thromboplastin Time 24.7 sec (22.0-30.0); Prothrombin Time 9.8 sec (9.0-12.0); Sodium 135 mmol/L (137-145); Total Bilirubin 0.5 mg/dL (0.2-1.3); Total Protein 6.8 g/dL (6.3-8.2)
[2020-03-14] MEDS ORDERED: KETOROLAC 15 MG/ML 1 ML VIAL IVP STA (14:30)
[2020-03-14 14:39] LABS: C Reactive Protein 229.4 mg/L (<10.0)
[2020-03-14 15:22] VITALS: PULSE 94; RESP 14
--- NOTE | 2020-03-14 16:02 | CT ---
EXAMINATION TYPE: CT chest angio for PE DATE OF EXAM: 03/14/2020 COMPARISON: None HISTORY: Elevated d-dimer, cough and dyspnea. CT DLP: 351.6 mGycm Automated exposure control for dose reduction was used. CONTRAST: Performed with IV Contrast, patient injected with 100ml mL of Isovue 370. There are 3-D post processed images. There is some patchy airspace consolidation in both lower lobes and more on the left side. There is a lso a component of nodular infiltrate at the lung bases. There is no pleural effusion. Heart size is normal. There is no pericardial effusion. There are no hilar masses. There is no mediastinal adenopat hy. Thoracic aorta is intact. There is no aneurysm or dissection. There is normal contrast opacification of the pulmonary arteries. There are no filling defects. Bony thorax is intact. Sternum is intact. The ribs are intact. IMPRESSION: No evidence of pulmonary embolism. Bilateral pneumonia. Normal heart.
--- NOTE | 2020-03-14 16:26 | ED ---
URI HPI - General Chief Complaint: Upper Respiratory Infection Stated Complaint: SOB, congestion Time Seen by Provider: 03/14/20 13:24 Source: patient Mode of arrival: ambulatory Limitations: no limitations - History of Present Illness Initial Comments: 29yo male who denies pmh resulting today for chief complaint of cough headache body aches sputum production. pt states that he has had these symptoms for past 3 days. states when he coughs hard he has chest pain otherwise chest pain absent. pt admits to dyspnea when coughing. She denies hemoptysis pain with deep inspiration. He denies any leg swelling calf pain. Patient with some nausea when he attempts to eat he denies any abdominal pain. Patient denies neck stiffness. Patient states he has lost taste and smell is concerned of Covid as he has had a recent exposure he denies additional complaints upon arrival patient appears nontoxic no acute distress he states he took Tylenol at 12:00 PM - Related Data Previous Rx's Medication Instructions Recorded RX: Azithromycin [Zithromax Z-pack 0 mg PO DIRECTED #6 tab 03/14/20 (6 tabs)] RX: predniSONE 50 mg PO DAILY 4 Days #4 tab 03/14/20 Allergies Allergy/AdvReac Type Severity Reaction Status Date / Time No Known Allergies Allergy Verified 03/14/20 13:16 Review of Systems ROS Statement: Those systems with pertinent positive or pertinent negative responses have been documented in the HPI. ROS Other: All systems not noted in ROS Statement are negative. Past Medical History Past Medical History: No Reported History Additional Past Medical History / Comment(s): kidney stones History of Any Multi-Drug Resistant Organisms: None Reported Past Surgical History: No Surgical Hx Reported Additional Past Surgical History / Comment(s): (L) arm surgery Past Psychological History: No Psychological Hx Reported Smoking Status: Current every day smoker Past Alcohol Use History: Occasional Past Drug Use History: Marijuana General Exam - General Exam Comments Initial Comments: General: The patient is awake and alert, in no s Eye: +3 mm pupils are equal, round and reactive to light, extra-ocular movements are intact. No nystagmus. There is normal conjunctiva bilaterally. No signs of icterus. Ears, nose, mouth and throat: There are moist mucous membranes and no oral lesions. Neck: The neck is supple, there is no tenderness or JVD. Cardiovascular: There is a regular rate and rhythm. No murmur, rub or gallop is appreciated. Respiratory: Lungs are clear to auscultation, respirations are non-labored, breath sounds are equal. No wheezes, stridor, rales, or rhonchi. dry cough. Gastrointestinal: Soft, non-distended, non-tender abdomen without masses or organomegaly noted. There is no rebound or guarding present. Musculoskeletal: Normal ROM, no tenderness. Strength 5/5. Sensation intact. Radial pulses equal bilaterally 2+. Neurological: A&O x 3. CN II-XII intact grossly, There are no obvious motor or sensory deficits. Coordination appears grossly intact. Speech is normal. Skin: Skin is warm and dry and no rashes or lesions are noted. No LE edema. no calf pain. Psychiatric: Cooperative, appropriate mood & affect, normal judgment. Limitations: no limitations Course Vital Signs 03/14/20 03/14/20 03/14/20 13:16 13:31 15:21 Temperature 99.4 F 98.3 F Pulse Rate 111 H 94 Respiratory 18 20 14 Rate Blood Pressure 128/77 122/74 O2 Sat by Pulse 95 95 Oximetry 03/14/20 16:31 Temperature 98.2 F Pulse Rate 94 Respiratory 14 Rate Blood Pressure 105/70 O2 Sat by Pulse 96 Oximetry Medical Decision Making - Medical Decision Making WBC wnl. hgb stable. CPR increased. patient does not appear toxic. cxr b/l infiltrate noted. CT re-demonstrated the CXR findings. No PE. pt not hypoxia. covid (-). but I feel with symptoms. laboratory studies that this is most likely covid 19 with false negative. pt placed on oral antibiotics. steroids and givne strict return for worsening dyspnea or chest pain. patietn agreeable and prefers discharged. case discussed at length with Dr. Jung - Lab Data Result diagrams: 03/14/20 13:49 03/14/20 13:49 Lab Results 03/14/20 03/14/20 03/14/20 Range/Units 13:49 13:49 13:49 WBC 10.6 (3.8-10.6) k/uL RBC 4.67 (4.30-5.90) m/uL Hgb 13.8 (13.0-17.5) gm/dL Hct 40.9 (39.0-53.0) % MCV 87.6 (80.0-100.0) fL MCH 29.5 (25.0-35.0) pg MCHC 33.6 (31.0-37.0) g/dL RDW 12.3 (11.5-15.5) % Plt Count 162 (150-450) k/uL MPV 8.8 Neutrophils % 79 % Lymphocytes % 9 % Monocytes % 8 % Eosinophils % 1 % Basophils % 1 % Neutrophils # 8.4 H (1.3-7.7) k/uL Lymphocytes # 0.9 L (1.0-4.8) k/uL Monocytes # 0.9 (0-1.0) k/uL Eosinophils # 0.1 (0-0.7) k/uL Basophils # 0.1 (0-0.2) k/uL PT 9.8 (9.0-12.0) sec INR 0.9 (<1.2) APTT 24.7 (22.0-30.0) sec D-Dimer 0.73 H (<0.60) mg/L FEU Sodium 135 L (137-145) mmol/L Potassium 4.0 (3.5-5.1) mmol/L Chloride 103 (98-107) mmol/L Carbon Dioxide 24 (22-30) mmol/L Anion Gap 8 mmol/L BUN 10 (9-20) mg/dL Creatinine 0.53 L (0.66-1.25) mg/dL Est GFR (CKD-EPI)AfAm >90 (>60 ml/min/1.73 sqM) Est GFR (CKD-EPI)NonAf >90 (>60 ml/min/1.73 sqM) Glucose 157 H (74-99) mg/dL Plasma Lactic Acid Logan (0.7-2.0) mmol/L Calcium 9.1 (8.4-10.2) mg/dL Magnesium 2.0 (1.6-2.3) mg/dL Total Bilirubin 0.5 (0.2-1.3) mg/dL AST 29 (17-59) U/L ALT 20 (4-49) U/L Alkaline Phosphatase 92 (38-126) U/L Lactate Dehydrogenase 525 (313-618) U/L Troponin I (0.000-0.034) ng/mL C-Reactive Protein 229.4 H (<10.0) mg/L Total Protein 6.8 (6.3-8.2) g/dL Albumin 4.1 (3.5-5.0) g/dL Coronavirus (PCR) (Not Detectd) 03/14/20 03/14/20 03/14/20 Range/Units 13:49 13:49 13:49 WBC (3.8-10.6) k/uL RBC (4.30-5.90) m/uL Hgb (13.0-17.5) gm/dL Hct (39.0-53.0) % MCV (80.0-100.0) fL MCH (25.0-35.0) pg MCHC (31.0-37.0) g/dL RDW (11.5-15.5) % Plt Count (150-450) k/uL MPV Neutrophils % % Lymphocytes % % Monocytes % % Eosinophils % % Basophils % % Neutrophils # (1.3-7.7) k/uL Lymphocytes # (1.0-4.8) k/uL Monocytes # (0-1.0) k/uL Eosinophils # (0-0.7) k/uL Basophils # (0-0.2) k/uL PT (9.0-12.0) sec INR (<1.2) APTT (22.0-30.0) sec D-Dimer (<0.60) mg/L FEU Sodium (137-145) mmol/L Potassium (3.5-5.1) mmol/L Chloride (98-107) mmol/L Carbon Dioxide (22-30) mmol/L Anion Gap mmol/L BUN (9-20) mg/dL Creatinine (0.66-1.25) mg/dL Est GFR (CKD-EPI)AfAm (>60 ml/min/1.73 sqM) Est GFR (CKD-EPI)NonAf (>60 ml/min/1.73 sqM) Glucose (74-99) mg/dL Plasma Lactic Acid Logan 1.4 (0.7-2.0) mmol/L Calcium (8.4-10.2) mg/dL Magnesium (1.6-2.3) mg/dL Total Bilirubin (0.2-1.3) mg/dL AST (17-59) U/L ALT (4-49) U/L Alkaline Phosphatase (38-126) U/L Lactate Dehydrogenase (313-618) U/L Troponin I <0.012 (0.000-0.034) ng/mL C-Reactive Protein (<10.0) mg/L Total Protein (6.3-8.2) g/dL Albumin (3.5-5.0) g/dL Coronavirus (PCR) Not Detected (Not Detectd) Disposition Clinical Impression: Dyspnea, Congestion of nasal sinus, Exposure to COVID-19 virus, Loss of taste, Cough Disposition: HOME SELF-CARE Condition: Good Instructions (If sedation given, give patient instructions): Upper Respiratory Infection (ED) Additional Instructions: Please use medication as discussed. Please follow-up with family doctor in the next 2 days. NO WORK FOR THE NEXT 7 DAY, must be fever/symptoms free x 48 hours prior to return after the 7 days. Please return to emergency room if the symptoms increase or worsen or for any other concerns. Prescriptions: RX: predniSONE 50 mg PO DAILY 4 Days #4 tab RX: Azithromycin [Zithromax Z-pack (6 tabs)] 0 mg PO DIRECTED #6 tab Is patient prescribed a controlled substance at d/c from ED?: No Referrals: None,Stated [Primary Care Provider] - 1-2 days [facility] - [facility]-2 days Time of Disposition: 16:26
[2020-03-14 16:33] VITALS: BP 105/70; TEMP 98.2
[2020-03-14 23:26] LABS: Ferritin 488.8 ng/mL (22.0-322.0)
== END 2020-03-14 16:37 | disposition home or self-care (01) ==
LOC: EC 13:11
DX: R05 Cough (principal); R06.00 Dyspnea, unspecified; R09.81 Nasal congestion; R43.9 Unspecified disturbances of smell and taste; F17.200 Nicotine dependence, unspecified, uncomplicated; Z20.828 Contact with and (suspected) exposure to other viral communicable diseases
CPT/HCPCS: 36415; 94640; 93005; 85379; 80053; 82728; 83605; 83615; 83735; 84484; 85025; 85610; 85730; 86140; 87040; 84145; 87635; 71045; 71275; 99285; 96374; 96375 ×2; 96361 ×3; J1100; J0696; J1885; Q9967

== ENCOUNTER → 2020-05-06 | Outpatient (CLI) | payer OTHER | END | disposition home or self-care (01) | LOC: LABWHC1 15:32 | PROVIDERS: ATTEND Anesthesiology | DX: Z11.52 Encounter for screening for COVID-19 (principal) | CPT/HCPCS: G0463; U0003; C9803; 99212 ==

== ENCOUNTER 2020-05-28 18:52 | Emergency (ER) | payer OTHER ==
[2020-05-28 19:06] VITALS: RESP 18; TEMP 98.8
[2020-05-28] MEDS ORDERED: KETOROLAC 15 MG/ML 1 ML VIAL IVP STA (19:30)
[2020-05-28] MEDS ORDERED: SODIUM CHLORIDE 0.9% 1,000 ML IV STA (19:30)
--- NOTE | 2020-05-28 19:45 | ED ---
General Adult HPI - General Chief complaint: Abdominal Pain Stated complaint: side & back pain Time Seen by Provider: 05/28/20 19:11 Source: patient, RN notes reviewed Mode of arrival: ambulatory Limitations: no limitations - History of Present Illness Initial comments: 30-year-old male with a past medical history of kidney stones presents to the emergency room for right flank and right abdominal pain. Patient states that this started earlier today. Patient states he had a cystoscopy with lithotripsy on May 16. States he has not had any issues until today. Patient states he started urinating blood and have pain. States the bleeding has resolved however he does stop the pain. He denies nausea or vomiting. Denies fevers.he states the pain starts in his back and wraps around to his abdomen and radiates to his testicle. Patient has no other complaints at this time including shortness of breath, chest pain, nausea or vomiting, headache, or visual changes. - Related Data Previous Rx's Medication Instructions Recorded Azithromycin [Zithromax Z-pack (6 0 mg PO DIRECTED #6 tab 03/14/20 tabs)] predniSONE 50 mg PO DAILY 4 Days #4 tab 03/14/20 Allergies Allergy/AdvReac Type Severity Reaction Status Date / Time No Known Allergies Allergy Verified 05/28/20 19:06 Review of Systems ROS Statement: Those systems with pertinent positive or pertinent negative responses have been documented in the HPI. ROS Other: All systems not noted in ROS Statement are negative. Past Medical History Past Medical History: No Reported History Additional Past Medical History / Comment(s): kidney stones History of Any Multi-Drug Resistant Organisms: None Reported Past Surgical History: No Surgical Hx Reported Additional Past Surgical History / Comment(s): (L) arm surgery Past Psychological History: No Psychological Hx Reported Smoking Status: Current every day smoker Past Alcohol Use History: Occasional Past Drug Use History: Marijuana General Exam Limitations: no limitations General appearance: alert, in no apparent distress Head exam: Present: atraumatic, normocephalic, normal inspection Eye exam: Present: normal appearance, PERRL, EOMI. Absent: scleral icterus, conjunctival injection, periorbital swelling ENT exam: Present: normal exam, mucous membranes moist Neck exam: Present: normal inspection, full ROM. Absent: tenderness, meningismus, lymphadenopathy Respiratory exam: Present: normal lung sounds bilaterally. Absent: respiratory distress, wheezes, rales, rhonchi, stridor Cardiovascular Exam: Present: regular rate, normal rhythm, normal heart sounds. Absent: systolic murmur, diastolic murmur, rubs, gallop, clicks GI/Abdominal exam: Present: soft, normal bowel sounds. Absent: distended, tenderness, guarding, rebound, rigid Back exam: Present: CVA tenderness (R). Absent: CVA tenderness (L) Course Vital Signs 05/28/20 19:04 Temperature 98.8 F Pulse Rate 102 H Respiratory 18 Rate Blood Pressure 114/71 O2 Sat by Pulse 99 Oximetry Medical Decision Making - Medical Decision Making Vitals are stable. Physical exam as documented. CBC CMP unremarkable. Urinalysis shows only trace blood with 2 red blood cells. No evidence of infection. A CT abdomen and pelvis without contrast was obtained which was negative. No renal stone or obstruction. There is clearing of right-sided calculi and a mild right-sided hydronephrosis compared to old exam. Patient was given Toradol. Patient did have significant improvement in symptoms. He will return here for any worsening symptoms. - Lab Data Result diagrams: 05/28/20 19:30 05/28/20 19:30 Lab Results 05/28/20 05/28/20 05/28/20 Range/Units 19:30 19:30 19:30 WBC 5.6 (3.8-10.6) k/uL RBC 4.69 (4.30-5.90) m/uL Hgb 13.5 (13.0-17.5) gm/dL Hct 40.8 (39.0-53.0) % MCV 87.0 (80.0-100.0) fL MCH 28.8 (25.0-35.0) pg MCHC 33.1 (31.0-37.0) g/dL RDW 12.8 (11.5-15.5) % Plt Count 171 (150-450) k/uL MPV 8.3 Neutrophils % 56 % Lymphocytes % 32 % Monocytes % 5 % Eosinophils % 6 % Basophils % 0 % Neutrophils # 3.1 (1.3-7.7) k/uL Lymphocytes # 1.8 (1.0-4.8) k/uL Monocytes # 0.3 (0-1.0) k/uL Eosinophils # 0.3 (0-0.7) k/uL Basophils # 0.0 (0-0.2) k/uL Sodium 138 (137-145) mmol/L Potassium 3.5 (3.5-5.1) mmol/L Chloride 103 (98-107) mmol/L Carbon Dioxide 24 (22-30) mmol/L Anion Gap 11 mmol/L BUN 18 (9-20) mg/dL Creatinine 0.69 (0.66-1.25) mg/dL Est GFR (CKD-EPI)AfAm >90 (>60 ml/min/1.73 sqM) Est GFR (CKD-EPI)NonAf >90 (>60 ml/min/1.73 sqM) Glucose 153 H (74-99) mg/dL Calcium 9.2 (8.4-10.2) mg/dL Total Bilirubin 0.5 (0.2-1.3) mg/dL AST 30 (17-59) U/L ALT 17 (4-49) U/L Alkaline Phosphatase 87 (38-126) U/L Total Protein 6.9 (6.3-8.2) g/dL Albumin 4.5 (3.5-5.0) g/dL Amylase 40 (30-110) U/L Lipase 57 (23-300) U/L Urine Color Yellow Urine Appearance Clear (Clear) Urine pH 6.0 (5.0-8.0) Ur Specific [place] 1.031 (1.001-1.035) Urine Protein Trace H (Negative) Urine Glucose (UA) Negative (Negative) Urine Ketones Negative (Negative) Urine Blood Trace H (Negative) Urine Nitrite Negative (Negative) Urine Bilirubin Negative (Negative) Urine Urobilinogen <2.0 (<2.0) mg/dL Ur Leukocyte Esterase Negative (Negative) Urine RBC 2 (0-5) /hpf Urine WBC 1 (0-5) /hpf Ur Squamous Epith Cells <1 (0-4) /hpf Urine Mucus Moderate H (None) /hpf Disposition Clinical Impression: Flank pain Disposition: HOME SELF-CARE Condition: Poor Instructions (If sedation given, give patient instructions): Abdominal Pain (ED) Additional Instructions: Please follow-up with your urologist as soon as possible. If symptoms return, then return to the emergency room. Is patient prescribed a controlled substance at d/c from ED?: No Referrals: None,Stated [Primary Care Provider] - 1-2 days Time of Disposition: 21:02
[2020-05-28 20:11] LABS: Basophils % (A) 0 %; Eosinophils # (A) 0.3 k/uL (0-0.7); Eosinophils % (A) 6 %; HCT 40.8 % (39.0-53.0); HGB 13.5 gm/dL (13.0-17.5); Lymphocytes # (A) 1.8 k/uL (1.0-4.8); Lymphocytes % (A) 32 %; MCH 28.8 pg (25.0-35.0); MCHC 33.1 g/dL (31.0-37.0); Mean Platelet Volume 8.3; Monocytes # (A) 0.3 k/uL (0-1.0); Monocytes % (A) 5 %; Neutrophils # (A) 3.1 k/uL (1.3-7.7); Neutrophils % (A) 56 %; Platelet Count 171 k/uL (150-450); RBC 4.69 m/uL (4.30-5.90); RDW 12.8 % (11.5-15.5); WBC 5.6 k/uL (3.8-10.6)
[2020-05-28 20:12] LABS: Appearance,Urine Clear (Clear); Bilirubin,Urine Negative (Negative); Blood,Urine Trace (Negative); Color,Urine Yellow; Glucose,Urine (UA) Negative (Negative); Ketones,Urine Negative (Negative); Leukocyte Esterase,Urine Negative (Negative); Mucus,Urine Moderate /hpf; Nitrite,Urine Negative (Negative); Protein,Urine Trace (Negative); RBC,Urine 2 /hpf (0-5); Specific Gravity,Urine 1.031 (1.001-1.035); Squamous Epithelial Cell,Urine <1 /hpf (0-4); Urobilinogen,Urine <2.0 mg/dL (<2.0); WBC,Urine 1 /hpf (0-5)
--- NOTE | 2020-05-28 20:17 | CT ---
EXAMINATION TYPE: CT abdomen pelvis wo con DATE OF EXAM: 05/28/2020 COMPARISON: 04/20/2017 HISTORY: Right flank pain and hematuria. CT DLP: 578.6 mGycm Automated exposure control for dose reduction was used. Images obtained from the diaphragm to the floor the pelvis with no contrast. The lung bases are clear. There is no pleural effusion. Heart size is normal. There is no pericardial effusion. Liver spleen stomach pancreas gallbladder appear normal. The bile ducts are not dilated. There is no adrenal mass. Kidneys have normal size and contour. There is no hydronephrosis. Ureters a re not dilated. There is no retroperitoneal adenopathy. Bladder distends smoothly. There is no eviden ce of a pelvic mass. There is no mesenteric edema. There is no ascites or free air. There is no sign of a bowel obstructio n. Appendix is posterior and appears normal. The lumbar vertebra have normal spacing and alignment. There is right side L5 spondylolysis without s pondylolisthesis. There is no compression fracture. The bony pelvis is intact. Hip joints are intact. IMPRESSION: Negative CT scan abdomen and pelvis. No renal stone or obstruction. There is clearing of the right si de calculi and mild right side hydronephrosis compared to old exam.
[2020-05-28 20:22] LABS: ALT 17 U/L (4-49); AST 30 U/L (17-59); African American GFR (CKD) >90 (>60 ml/min/1.73 sqM); Albumin 4.5 g/dL (3.5-5.0); Alkaline Phosphatase 87 U/L (38-126); Amylase 40 U/L (30-110); Anion Gap 11 mmol/L; Blood Urea Nitrogen 18 mg/dL (9-20); Calcium 9.2 mg/dL (8.4-10.2); Carbon Dioxide 24 mmol/L (22-30); Chloride 103 mmol/L (98-107); Glucose 153 mg/dL (74-99); Lipase 57 U/L (23-300); Non-African American GFR(CKD) >90 (>60 ml/min/1.73 sqM); Potassium 3.5 mmol/L (3.5-5.1); Sodium 138 mmol/L (137-145); Total Bilirubin 0.5 mg/dL (0.2-1.3); Total Protein 6.9 g/dL (6.3-8.2)
[2020-05-28 21:35] VITALS: BP 117/73; PULSE 100
== END 2020-05-28 21:35 | disposition home or self-care (01) ==
LOC: EC 18:52
DX: R10.9 Unspecified abdominal pain (principal); Z87.442 Personal history of urinary calculi; F17.200 Nicotine dependence, unspecified, uncomplicated; F12.90 Cannabis use, unspecified, uncomplicated
CPT/HCPCS: 36415; 80053; 82150; 83690; 85025; 81001; 74176; 99284; 96374; J1885

== ENCOUNTER 2021-02-20 08:15 | Inpatient (IN) | payer MEDICAID, OTHER ==
--- NOTE | 2021-02-20 08:44 | ED ---
General Adult HPI - General Chief complaint: Psychiatric Symptoms Stated complaint: EPS eval Time Seen by Provider: 02/20/21 08:24 Source: patient, family, RN notes reviewed Mode of arrival: ambulatory Limitations: no limitations - History of Present Illness Initial comments: Patient is a pleasant 30-year-old male presenting to the emergency department with concerns for hallucinations. Patient has been doing a lot of drugs lately. Patient is hearing voices. Sometimes voices are telling him to do more drugs or to harm himself. Patient does have thoughts of desired self-harm. No homicidal thoughts. Patient is also seeing shadows. Patient is anxious regarding this. Patient did drink a little bit of alcohol this morning. No new physical complaints. - Related Data Home Medications Medication Instructions Recorded Confirmed Buprenorphine HCl/Naloxone HCl 1 tab SUBLINGUAL BID PRN 02/20/21 02/20/21 [Zubsolv 5.7-1.4 mg Tablet Sl] Allergies Allergy/AdvReac Type Severity Reaction Status Date / Time No Known Allergies Allergy Verified 02/20/21 09:04 Review of Systems ROS Statement: Those systems with pertinent positive or pertinent negative responses have been documented in the HPI. ROS Other: All systems not noted in ROS Statement are negative. Constitutional: Denies: fever Eyes: Denies: eye pain ENT: Denies: ear pain Respiratory: Denies: cough Cardiovascular: Denies: chest pain Endocrine: Denies: fatigue Gastrointestinal: Denies: abdominal pain Genitourinary: Denies: dysuria Musculoskeletal: Denies: back pain Skin: Denies: rash Neurological: Denies: weakness Psychiatric: Reports: anxiety, auditory hallucinations, visual hallucinations, suicidal thoughts. Denies: homicidal thoughts Past Medical History Past Medical History: No Reported History Additional Past Medical History / Comment(s): kidney stones History of Any Multi-Drug Resistant Organisms: None Reported Past Surgical History: No Surgical Hx Reported Additional Past Surgical History / Comment(s): (L) arm surgery Past Psychological History: No Psychological Hx Reported Smoking Status: Current every day smoker Past Alcohol Use History: Abuse, Daily Past Drug Use History: Cocaine, Heroin, Marijuana, Methamphetamine, Opiates, Prescription Drug Abuse General Exam Limitations: no limitations General appearance: alert, in no apparent distress Head exam: Present: normocephalic Eye exam: Present: normal appearance, PERRL, EOMI. Absent: nystagmus Neck exam: Present: normal inspection Respiratory exam: Present: normal lung sounds bilaterally Cardiovascular Exam: Present: regular rate, normal rhythm GI/Abdominal exam: Present: soft. Absent: tenderness Extremities exam: Present: normal inspection Neurological exam: Present: alert Psychiatric exam: Present: anxious Skin exam: Present: normal color Course Vital Signs 02/20/21 08:18 Temperature 98.5 F Pulse Rate 103 H Respiratory 18 Rate Blood Pressure 130/92 O2 Sat by Pulse 97 Oximetry Medical Decision Making - Medical Decision Making Patient seen by mental health services with plans for admission. Disposition Clinical Impression: Psychosis Disposition: TRANSFER TO PSYCH HOSP/UNIT Is patient prescribed a controlled substance at d/c from ED?: No Referrals: None,Stated [Primary Care Provider] - 1-2 days Decision Time: 11:00
[2021-02-20] MEDS ORDERED: LORazepam 1 MG TAB PO STA ×2 (10:36→14:00)
[2021-02-20] MEDS ORDERED: LORazepam 1 MG TAB PO PRN ×2 (12:19→13:56)
[2021-02-20] MEDS ORDERED: ACETAMINOPHEN TAB 325 MG TAB PO PRN (12:19)
[2021-02-20] MEDS ORDERED: MAG HYDROX/AL HYDROX/SIMETH 30 ML CUP PO PRN (12:19)
[2021-02-20] MEDS ORDERED: MAGNESIUM HYDROXIDE 2,400 MG/10 ML CUP PO PRN (12:19)
[2021-02-20] MEDS ORDERED: LORazepam 2 MG/ML INJ IM PRN ×2 (12:24→14:00)
[2021-02-20] MEDS ORDERED: HALOPERIDOL LACTATE 5 MG/ML 1 ML VIAL IM PRN (12:25)
[2021-02-20 12:34] LABS: Cocaine Screen,Urine Not Detected (NotDetected); Phencyclidine Screen,Urine Not Detected (NotDetected); Urn Cannabinoid Scrn Detected (NotDetected)
[2021-02-20 12:35] LABS: Amphetamine Screen,Urine Detected (NotDetected); Barbiturate Screen,Urine Not Detected (NotDetected); Benzodiazepines Screen,Urine Not Detected (NotDetected); Methadone Screen, Urine Not Detected (NotDetected); Opiate Screen,Urine Not Detected (NotDetected); Oxycodone Screen, Urine Not Detected (NotDetected); Tricyclic Antidepressant,Urine Not Detected (NotDetected)
[2021-02-20] MEDS ORDERED: cloNIDine HCL 0.1 MG TAB PO PRN (13:53)
--- NOTE | 2021-02-20 14:01 | P.HP ---
Psychiatric H&P - . H&P Date: 02/20/21 History & Physical: Allergies Allergy/AdvReac Type Severity Reaction Status Date / Time No Known Allergies Allergy Verified 02/20/21 09:04 Vital Signs Temp 98.5 F 02/20/21 08:18 Pulse 92 02/20/21 12:51 Resp 16 02/20/21 12:51 BP 146/87 02/20/21 12:51 Pulse Ox 97 02/20/21 12:51 Intake & Output 02/19/21 02/20/21 02/20/21 18:59 06:59 18:59 Weight 74.843 kg Laboratory Last Values Urine Opiates Screen Not Detected (NotDetected) 02/20/21 11:52 Ur Oxycodone Screen Not Detected (NotDetected) 02/20/21 11:52 Urine Methadone Screen Not Detected (NotDetected) 02/20/21 11:52 Ur Propoxyphene Screen Not Detected (NotDetected) 02/20/21 11:52 Ur Barbiturates Screen Not Detected (NotDetected) 02/20/21 11:52 U Tricyclic Antidepress Not Detected (NotDetected) 02/20/21 11:52 Ur Phencyclidine Scrn Not Detected (NotDetected) 02/20/21 11:52 Ur Amphetamines Screen Detected (NotDetected) H 02/20/21 11:52 U Methamphetamines Scrn Detected (NotDetected) H 02/20/21 11:52 U Benzodiazepines Scrn Not Detected (NotDetected) 02/20/21 11:52 Urine Cocaine Screen Not Detected (NotDetected) 02/20/21 11:52 U Marijuana (THC) Screen Detected (NotDetected) H 02/20/21 11:52 Coronavirus (PCR) Not Detected (Not Detectd) 02/20/21 10:55 02/20/21 13:03 Psychiatric evaluation History of present illness: This is a 30-year-old male with long history of polysubstance use disorder that includes with amphetamine alcohol and opiate use disorder Patient is currently also on an opiate supplemental treatment. Takes zubsolv ) 5. 7/1.4 mg twice a day when necessary Patient admits that he has also been using some heroin from the streets in addition Patient also uses methamphetamine on a daily basis as well as drinking alcohol regularly Patient reports that he is currently going through a divorce and that they have 2 children age 3 and 1 there are being managed by his biological mother Patient has not been employed for about almost a year since the marital conflicts have begun Patient is unable to give much details since he was seen in the ER where he was laying down and grabbing his head stating that he is experiencing auditory hallucinations and needed to relax Patient denies any suicidal or homicidal ideations at this time Patient denies any command hallucinations Patient's mother was also present during the interview but does not seem to know too many details Past history: Could not be dealt with at this time due to patient's level of agitation where he seems to be easily irritated by any noise light or interaction and will be collected at a later date when patient is able to interact adequately Patient admits to previous suicide attempts. He states that he tried to overdose on drugs to kill himself Personal history/social history As mentioned below has not been dealt in detail at this time due to level reasons Mental status examination: Reveals a young male who at this time appears to be anxious and tremulous Patient has his hands over his head and complaints of headache and auditory hallucinations Patient admits to using methamphetamine regularly including in the last few days Affect at this time appears to be that of [id number] anxiety Patient admits feeling overwhelmed and hopeless Patient admits to having suicidal thoughts Patient's formal and operational judgment are impaired Patient does seem to have some insight into his problem Diagnostic impression: Adjustment disorder with mixed emotional 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 Major depressive disorder acute Marital conflicts/relationship problems Polysubstance use disorder Methamphetamine use disorder unspecified Alcohol use disorder unspecified Opiate use disorder unspecified Plan: The patient at this time needs medical clearance since patient is experiencing acute withdrawal symptoms and most likely needs to be further observed in the ER before transferring to the medical floor However I was informed that the patient is already being transferred to the psychiatric unit The nursing reports that the patient is anxious diaphoretic with the blood pressure of 170/101 and is anxious and restless 2 patient will also be advised to request his mother to bring the zubsolv to continue his opiate replacement treatment since I was informed that we do not have the Suboxone replacement available Meantime we'll also recommend starting the patient on clonidine 0.1 mg up to 3 times a day and to be held for blood pressure of 90/60 When necessary Ativan could also be increased to 2 mg every 4-6 hours for agitation and anxiety and restlessness The nursing also administer Haldol that has been ordered when necessary for auditory hallucinations and restlessness Monitor for EPS tremors tardive dyskinesia akathisia QTC prolongation 3 maintain supportive care and safety precautions 4 . Recommend starting the patient on gabapentin 300 mg 3 times a day to start with and we'll titrate to response for anxiety and agitation 51 stable patient is recommended to participate on the chilel activities and supportive care 02/20/21 13:57
[2021-02-20] MEDS: GABAPENTIN 300 MG CAP PO SCH ×2 (14:10→21:55)
[2021-02-20] MEDS: FOLIC ACID 1 MG TAB PO SCH (14:10)
[2021-02-20] MEDS: THIAMINE 100 MG TAB PO SCH (14:16)
[2021-02-20 14:46] LABS: Amorphous Sediment,Urine Few /hpf; Appearance,Urine Cloudy (Clear); Bacteria,Urine Rare /hpf; Bilirubin,Urine Negative (Negative); Blood,Urine Negative (Negative); Color,Urine Yellow; Glucose,Urine (UA) Negative (Negative); Ketones,Urine Negative (Negative); Leukocyte Esterase,Urine Negative (Negative); Mucus,Urine Many /hpf; Nitrite,Urine Negative (Negative); Protein,Urine Trace (Negative); RBC,Urine 2 /hpf (0-5); Specific Gravity,Urine 1.012 (1.001-1.035); Urobilinogen,Urine <2.0 mg/dL (<2.0); WBC,Urine 6 /hpf (0-5)
[2021-02-20] MEDS ORDERED: GABAPENTIN 300 MG CAP PO SCH (16:00)
[2021-02-20] MEDS ORDERED: ZUBSOLV SUBLINGUAL PRN (17:17)
[2021-02-20 18:55] VITALS: RESP 16
--- NOTE | 2021-02-20 21:50 | P.CONS ---
History of Present Illness - Reason for Consult Consult date: 02/20/21 - History of Present Illness Patient is a 30-year-old male with a PMH of polysubstance abuse who presents to the emergency room with hallucinations, auditory and visual. The patient was admitted to the mental health unit where he was seen and evaluated. The patient reports that over the past few days, he has been using several substances including methamphetamine and alcohol, drinking 5 beers every day. The patient also reports smoking 3 packs of cigarettes daily. He denied any physical complaints however. He denied chest discomfort, shortness of breath, fever, chills, cough, nausea, vomiting, abdominal pain, diarrhea. Review of systems: Pertinent positives and negatives as discussed in HPI, a complete review of systems was performed and all other systems are negative. Physical examination: General: non toxic, no distress, appears at stated age, normal weight Derm: no unusual rashes/lesions no unusual ecchymoses, warm, dry Head: atraumatic, normocephalic, symmetric Eyes: EOMI, no lid lag, anicteric sclera, pupils equal round reactive to light ENT: Nose and ears atraumatic, no thrush, no pharyngeal erythema Neck: No thyromegaly, no cervical lymphadenopathy, trachea midline, supple Mouth: no lip lesion, mucus membranes moist Cardiovascular: S1S2 reg, no murmur, positive posterior tibial pulse bilateral, no edema, capillary refill less than 2 seconds Lungs: CTA bilateral, no rhonchi, no rales , no accessory muscle use Abdominal: soft, nontender to palpation, no guarding, no appreciable organomegaly, normal bowel sounds Ext: no gross muscle atrophy, muscle strength 5 out of 5 in all 4 extremities grossly, no contractures, Neuro: CN II-XI grossly intact, light touch intact all 4 extremities, finger to nose within normal limits, Psych: Alert, oriented, appropriate affect Assessment/plan Polysubstance, tobacco abuse -Advised on importance of cessation Psychosis -As per psychiatry Thank you for allowing us to participate in the care of this patient. We will follow peripherally. Do not hesitate to contact us with questions. Someone can be reached from the [facility] hospitalist group at all hours of the day at [phone]. Past Medical History Past Medical History: No Reported History Additional Past Medical History / Comment(s): kidney stones History of Any Multi-Drug Resistant Organisms: None Reported Past Surgical History: No Surgical Hx Reported Additional Past Surgical History / Comment(s): (L) arm surgery Past Anesthesia/Blood Transfusion Reactions: No Reported Reaction Past Psychological History: No Psychological Hx Reported Smoking Status: Current every day smoker Past Alcohol Use History: Abuse, Daily Additional Past Alcohol Use History / Comment(s): pt reports that he has been drinking every day. Past Drug Use History: Cocaine, Heroin, Marijuana, Methamphetamine, Opiates, Prescription Drug Abuse Medications and Allergies Home Medications Medication Instructions Recorded Confirmed Type Buprenorphine HCl/Naloxone HCl 1 tab SUBLINGUAL BID PRN 02/20/21 02/20/21 History [Zubsolv 5.7-1.4 mg Tablet Sl] Allergies Allergy/AdvReac Type Severity Reaction Status Date / Time No Known Allergies Allergy Verified 02/20/21 13:40 Physical Exam Vitals: Vital Signs Temp Pulse Pulse Resp BP BP Pulse Ox 02/20/21 18:54 70 16 120/77 02/20/21 14:34 111 H 20 136/80 02/20/21 13:28 98.4 F 135 H 24 175/102 02/20/21 12:51 92 16 146/87 97 02/20/21 08:18 98.5 F 103 H 18 130/92 97 Intake and Output 02/20/21 02/20/21 02/20/21 06:59 14:59 22:59 Other: Weight 74.843 kg Results Labs: Abnormal Lab Results - Last 24 Hours (Table) 02/20/21 02/20/21 Range/Units 11:52 11:52 Urine Protein Trace H (Negative) Urine WBC 6 H (0-5) /hpf Amorphous Sediment Few H (None) /hpf Urine Bacteria Rare H (None) /hpf Urine Mucus Many H (None) /hpf Ur Amphetamines Screen Detected H (NotDetected) U Methamphetamines Scrn Detected H (NotDetected) U Marijuana (THC) Screen Detected H (NotDetected)
[2021-02-21 07:05] VITALS: TEMP 97.8
[2021-02-21] MEDS ORDERED: NICOTINE 14MG/24HR PATCH TRANSDERM SCH (09:00)
[2021-02-21] MEDS: NICOTINE GUM (POLACRILEX) 2 MG GUM BUCCAL PRN ×3 (10:04→21:21)
[2021-02-21] MEDS: THIAMINE 100 MG TAB PO SCH (10:04)
[2021-02-21] MEDS: FOLIC ACID 1 MG TAB PO SCH (10:04)
[2021-02-21] MEDS: GABAPENTIN 300 MG CAP PO SCH ×3 (10:04→21:20)
--- NOTE | 2021-02-21 13:28 | P.PN ---
Progress Note - Text Progress Note Date: 02/21/21 Interval History: Patient was seen in his room and was directable and agreeable to speak with teletypewriter operator in the office. The patient reports that he has been expressing auditory hallucinations. He reports that he is constantly hearing voices telling him that he has been a horrible person and has touched his daughter inappropriately. Patient vehemently denies that he has done such a thing and is concerned about people or voices causing him to feel this way; that he did something wrong. He reports that he has been having difficulty with sleep. Furthermore, the patient reports that he has been expressing visual disturbances and states that he feels like there are shadows in the corners of his eyes as well as bizarre shapes. The patient does admit that he was using methamphetamine 3 days prior to his presentation to this hospital. He is currently denying any suicidal or homicidal ideation, intention, and/or plan. He is not reporting any side effects of his medications. He is open to starting Risperdal to help address the psychotic symptoms. Mental Status Exam: General Appearance: Patient appears to be stated age is alert, directable, and cooperative. Behavior: Psychomotor activity is elevated. The patient appears to be responding to some internal stimuli. Speech: Patient's speech is fluent and nonpressured. Mood/Affect: Mood is angry, affect is fearful and hypervigilant Suicidality/Homicidality: Patient denies having any suicidal or homicidal idea tion intent or plan. Perceptions: Patient endorses both auditory and visual hallucinations. Though content/process: Some bizarre thought content is endorsed. Thought process appears to be with a flight of ideas. Loose associations. Memory and concentration: AOX3, grossly intact for the purposes of this session Judgment and insight: Poor Vital Signs Temp 97.8 F 02/21/21 07:04 Pulse 84 02/21/21 07:04 Resp 16 02/21/21 07:04 BP 108/65 02/21/21 07:04 Pulse Ox 97 02/20/21 12:51 Intake & Output 02/20/21 02/21/21 02/21/21 18:59 06:59 18:59 Weight 74.843 kg Laboratory Results Urine Color Yellow 02/20/21 11:52 Urine Appearance Cloudy (Clear) 02/20/21 11:52 Urine pH 7.0 (5.0-8.0) 02/20/21 11:52 Ur Specific [place] 1.012 (1.001-1.035) 02/20/21 11:52 Urine Protein Trace (Negative) H 02/20/21 11:52 Urine Glucose (UA) Negative (Negative) 02/20/21 11:52 Urine Ketones Negative (Negative) 02/20/21 11:52 Urine Blood Negative (Negative) 02/20/21 11:52 Urine Nitrite Negative (Negative) 02/20/21 11:52 Urine Bilirubin Negative (Negative) 02/20/21 11:52 Urine Urobilinogen <2.0 mg/dL (<2.0) 02/20/21 11:52 Ur Leukocyte Esterase Negative (Negative) 02/20/21 11:52 Urine RBC 2 /hpf (0-5) 02/20/21 11:52 Urine WBC 6 /hpf (0-5) H 02/20/21 11:52 Amorphous Sediment Few /hpf (None) H 02/20/21 11:52 Urine Bacteria Rare /hpf (None) H 02/20/21 11:52 Urine Mucus Many /hpf (None) H 02/20/21 11:52 Urine Opiates Screen Not Detected (NotDetected) 02/20/21 11:52 Ur Oxycodone Screen Not Detected (NotDetected) 02/20/21 11:52 Urine Methadone Screen Not Detected (NotDetected) 02/20/21 11:52 Ur Propoxyphene Screen Not Detected (NotDetected) 02/20/21 11:52 Ur Barbiturates Screen Not Detected (NotDetected) 02/20/21 11:52 U Tricyclic Antidepress Not Detected (NotDetected) 02/20/21 11:52 Ur Phencyclidine Scrn Not Detected (NotDetected) 02/20/21 11:52 Ur Amphetamines Screen Detected (NotDetected) H 02/20/21 11:52 U Methamphetamines Scrn Detected (NotDetected) H 02/20/21 11:52 U Benzodiazepines Scrn Not Detected (NotDetected) 02/20/21 11:52 Urine Cocaine Screen Not Detected (NotDetected) 02/20/21 11:52 U Marijuana (THC) Screen Detected (NotDetected) H 02/20/21 11:52 Coronavirus (PCR) Not Detected (Not Detectd) 02/20/21 10:55 Assessment Acute psychotic episode Major depressive disorder Methamphetamine use disorder Alcohol use disorder Opiate use disorder Plan: -Patient continues to meet criteria for inpatient psychiatric admission for symptom stabilization and safety. Patient has signed adult voluntary form and medication consent and was placed in patient's chart. -Medications: Continue gabapentin 2 mg by mouth 3 times a day for off label use for anxiety Start Risperdal 1 mg by mouth twice a day to address acute psychosis. -When necessary Ativan and Haldol for agitation/aggression. -NRT - nicotine patch -SW on board for discharge planning. Encouraged the patient to participate in milieu.
[2021-02-21] MEDS: risperiDONE 1 MG TAB PO SCH (21:20)
[2021-02-22] MEDS: risperiDONE 1 MG TAB PO SCH ×2 (09:15→09:22)
[2021-02-22] MEDS: FOLIC ACID 1 MG TAB PO SCH ×2 (09:15→09:23)
[2021-02-22] MEDS: GABAPENTIN 300 MG CAP PO SCH ×2 (09:15→09:22)
[2021-02-22] MEDS: THIAMINE 100 MG TAB PO SCH ×2 (09:15→09:23)
[2021-02-22 09:24] VITALS: BP 104/64; PULSE 78
--- NOTE | 2021-02-22 11:18 | P.DS ---
Providers Date of admission: 02/20/21 11:42 Expected date of discharge: 02/22/21 Attending physician: Marcial Schrader MD Consults: 02/20/21 12:19 Consult Physician Routine Consulting Provider: Conchita Ahumada Consult Reason/Comments: Medical management Do you want consulting provider notified?: Yes Primary care physician: Stated None - Discharge Diagnosis(es) (1) Acute psychosis Current Visit: Yes Status: Acute Priority: High (2) Major depressive disorder Current Visit: Yes Status: Acute Priority: High (3) Polysubstance abuse Current Visit: Yes Status: Chronic Priority: Medium (4) Methamphetamine abuse Current Visit: Yes Status: Chronic Priority: Medium Hospital Course: Admission HPI: Initial psychiatric evaluation was complete by Dr. Painter on 02/20/2021 who wrote: "This is a 30-year-old male with long history of polysubstance use disorder that includes with amphetamine alcohol and opiate use disorder Patient is currently also on an opiate supplemental treatment. Takes zubsolv ) 5. 7/1.4 mg twice a day when necessary Patient admits that he has also been using some heroin from the streets in addition Patient also uses methamphetamine on a daily basis as well as drinking alcohol regularly Patient reports that he is currently going through a divorce and that they have 2 children age 3 and 1 there are being managed by his biological mother Patient has not been employed for about almost a year since the marital conflicts have begun Patient is unable to give much details since he was seen in the ER where he was laying down and grabbing his head stating that he is experiencing auditory hallucinations and needed to relax Patient denies any suicidal or homicidal ideations at this time Patient denies any command hallucinations Patient's mother was also present during the interview but does not seem to know too many details Past history: Could not be dealt with at this time due to patient's level of agitation where he seems to be easily irritated by any noise light or interaction and will be collected at a later date when patient is able to interact adequately Patient admits to previous suicide attempts. He states that he tried to overdose on drugs to kill himself Personal history/social history As mentioned below has not been dealt in detail at this time due to level reasons" Hospital course: Upon admission to the unit patient was initially presenting as very anxious, tremulous, and responding to internal stimuli Patient was however directable and agreeable to commence treatment. Patient got along well with other patients on the unit and followed unit protocol. Patient was compliant with the medications and denied any side effects throughout hospital course. Patient was started on gabapentin to aid in anxiety and restlessness. When evaluated by this provider, the patient appeared to be responding to internal stimuli and was endorsing significant auditory and visual hallucinations. He was started on Risperdal on top of his prescribed gabapentin. On this regimen, the patient displayed significant improvement in regards to his target symptoms of psychosis and mood lability and anxiety. The patient was also seen by the medical team for history and physical examination. On the day of discharge, the patient is not reporting any suicidal or homicidal ideation, intention, and/or plan. He is not reporting any auditory or visual hallucinations. He is denying any paranoia or other delusions at this time. The patient denies any access to firearms or other weapons. He expresses strong desire to live for himself and for his family. The patient does have a significant history of substance abuse however was counseled on abstaining from all substances, in particular methamphetamines. The patient was offered inpatient substance abuse rehabilitation's which she subsequently declined. The patient was counseled on his medications and need for regular compliance and was encouraged to follow-up with his outpatient appointments for mental health and for primary care. Prior to discharge, family meeting will be arranged to ensure safety. Mental status exam: General Appearance: Patient appears to be stated age is alert, pleasant, and cooperative. Patient is in no acute distress and has fair hygiene and grooming Behavior: Patient is calmly seated without any agitated behavior. Speech: Patient's speech is fluent and nonpressured. Mood/Affect: Patient reports their mood is "much better", affect is congruent and constricted. Suicidality/Homicidality: Patient denies having any suicidal or homicidal ideation intent or plan. Perceptions: Patient denies any auditory or visual hallucinations. Though content/process: There is no evidence of any delusional thought content and thought process is linear and goal-directed. Future oriented. Memory and concentration: AOX3, grossly intact for the purposes of this session. Can spell "WORLD" backwards correctly. Judgment and insight: Improved with guarded prognosis Vital Signs Temp 97.8 F 02/21/21 07:04 Pulse 78 12/14/21 09:23 Resp 16 02/21/21 07:04 BP 104/64 02/22/21 09:23 Pulse Ox 97 02/20/21 12:51 Impression: Acute psychotic episode Methamphetamine use disorder Major depressive disorder Alcohol use disorder Opiate use disorder on agonist therapy Plan: -Continue with discharge today as patient has improved and stabilized psychiatrically and is not currently an imminent threat to himself and/or others. Patient will remain at chronically elevated risk for harm to self and/or others due to his impulsivity and polysubstance abuse. -Continue medications: Risperdal 1 mg by mouth twice a day for acute psychosis Gabapentin 300 mg by mouth 3 times a day off label use for anxiety Patient is to continue his Zubsolv. -Patient was counseled on the need for medication compliance and appropriate follow-up at mental health and also primary care for medical issues. Patient verbalized understanding and agreed. -Social work to arrange for and conduct family meeting to ensure safety upon discharge and answer any questions/concerns. Social work also to arrange for patients follow up appointments with [facility] for psychiatric care along with follow up with primary care provider. -Patient counseled on abstaining from recreational drugs and marijuana and alcohol. Was informed/educated on the adverse effects on their physical and mental health. Patient verbally agreed and understood. Patient was offered substance abuse treatment however declined at this time. -Patient was instructed to return to the hospital or seek immediate medical care if their psychiatric or medical symptoms do worsen or reoccur. -Psychoeducation and supportive therapy provided to patient. Risks and benefits of pharmacological treatment versus the risks and benefits of nontreatment weight and discussed. Informed consent discussion held. Common side effects of psychotropics discussed such as, but not limited to headache, GI disturbance, sexual dysfunction, movement disorders, sedation, and orthostatic hypotension. Life threatening and blackbox warnings of prescribed medications also discussed. Potential risks of operating a vehicle or heavy machinery discussed with patient at length. Advised on importance of compliance and a reliable and responsible manner. Patient advised to review FDA consumer labeling of all medications prior to taking. Patient verbalized understanding of potential risks, and agrees with current treatment plan. Patient advised to medically contact physician/emergency personnel if any acute changes in condition occur. Laboratory Results Urine Color Yellow 02/20/21 11:52 Urine Appearance Cloudy (Clear) 02/20/21 11:52 Urine pH 7.0 (5.0-8.0) 02/20/21 11:52 Ur Specific [place] 1.012 (1.001-1.035) 02/20/21 11:52 Urine Protein Trace (Negative) H 02/20/21 11:52 Urine Glucose (UA) Negative (Negative) 02/20/21 11:52 Urine Ketones Negative (Negative) 02/20/21 11:52 Urine Blood Negative (Negative) 02/20/21 11:52 Urine Nitrite Negative (Negative) 02/20/21 11:52 Urine Bilirubin Negative (Negative) 02/20/21 11:52 Urine Urobilinogen <2.0 mg/dL (<2.0) 02/20/21 11:52 Ur Leukocyte Esterase Negative (Negative) 02/20/21 11:52 Urine RBC 2 /hpf (0-5) 02/20/21 11:52 Urine WBC 6 /hpf (0-5) H 02/20/21 11:52 Amorphous Sediment Few /hpf (None) H 02/20/21 11:52 Urine Bacteria Rare /hpf (None) H 02/20/21 11:52 Urine Mucus Many /hpf (None) H 02/20/21 11:52 Urine Opiates Screen Not Detected (NotDetected) 02/20/21 11:52 Ur Oxycodone Screen Not Detected (NotDetected) 02/20/21 11:52 Urine Methadone Screen Not Detected (NotDetected) 02/20/21 11:52 Ur Propoxyphene Screen Not Detected (NotDetected) 02/20/21 11:52 Ur Barbiturates Screen Not Detected (NotDetected) 02/20/21 11:52 U Tricyclic Antidepress Not Detected (NotDetected) 02/20/21 11:52 Ur Phencyclidine Scrn Not Detected (NotDetected) 02/20/21 11:52 Ur Amphetamines Screen Detected (NotDetected) H 02/20/21 11:52 U Methamphetamines Scrn Detected (NotDetected) H 02/20/21 11:52 U Benzodiazepines Scrn Not Detected (NotDetected) 02/20/21 11:52 Urine Cocaine Screen Not Detected (NotDetected) 02/20/21 11:52 U Marijuana (THC) Screen Detected (NotDetected) H 02/20/21 11:52 Coronavirus (PCR) Not Detected (Not Detectd) 02/20/21 10:55 Allergies Allergy/AdvReac Type Severity Reaction Status Date / Time No Known Allergies Allergy Verified 02/20/21 13:40 Patient Condition at Discharge: Stable Plan - Discharge Summary Discharge Rx Participant: No New Discharge Prescriptions: New Folic Acid 1 mg PO DAILY tab Gabapentin [Neurontin] 300 mg PO TID 30 Days cap Nicotine Gum (Polacrilex) [Nicorette] 2 mg BUCCAL Q4HR PRN 30 Days PRN Reason: Nicotine Cravings risperiDONE [RisperDAL] 1 mg PO BID 30 Days tab Thiamine [Vitamin B-1] 100 mg PO DAILY tab Continue Buprenorphine HCl/Naloxone HCl [Zubsolv 5.7-1.4 mg Tablet Sl] 1 tab SUBLINGUAL BID PRN PRN Reason: OPIOID DEPENDENCE Discharge Medication List Buprenorphine HCl/Naloxone HCl [Zubsolv 5.7-1.4 mg Tablet Sl] 1 tab SUBLINGUAL BID PRN 02/20/21 [History] Folic Acid 1 mg PO DAILY tab 02/22/21 [Rx] Gabapentin [Neurontin] 300 mg PO TID 30 Days cap 02/22/21 [Rx] Nicotine Gum (Polacrilex) [Nicorette] 2 mg BUCCAL Q4HR PRN 30 Days 02/22/21 [Rx] Thiamine [Vitamin B-1] 100 mg PO DAILY tab 02/22/21 [Rx] risperiDONE [RisperDAL] 1 mg PO BID 30 Days tab 02/22/21 [Rx] Follow up Appointment(s)/Referral(s): [facility] [Outside] - 02/24/21 2:00 pm (02-24-21 @ 2:00 with Juani Pickens 03-01-21 @ 10:[address] Mora 03-23-21 @ 1:[address] Pulido for psych eval) [facility] Patient Instructions/Handouts: How to Stop Smoking (DC), Brief Psychotic Disorder (DC) Activity/Diet/Wound Care/Special Instructions: Activity and diet as tolerated. Avoid the use of street drugs and alcohol. Take all medications as prescribed. When you are in need of refills on your medications please contact your medical provider and/or outpatient psychiatrist to have this done. Please go to scheduled outpatient appointment for aftercare treatment. If symptoms return or become worse, call the crisis line at and/or go to the nearest emergency room for evaluation Discharge Disposition: HOME SELF-CARE
== END 2021-02-22 11:45 | disposition home or self-care (01) | DRG 885 ==
LOC: EC 08:15 → 3MHU 11:42
PROVIDERS: ADMIT Psychiatry & Neurology Psychiatry; ATTEND Psychiatry & Neurology Psychiatry
DX: F23 Brief psychotic disorder (principal); R45.851 Suicidal ideations; F32.9 Major depressive disorder, single episode, unspecified; F12.10 Cannabis abuse, uncomplicated; Z20.822 Contact with and (suspected) exposure to COVID-19; Z71.41 Alcohol abuse counseling and surveillance of alcoholic; Z71.51 Drug abuse counseling and surveillance of drug abuser; Z71.6 Tobacco abuse counseling; F10.10 Alcohol abuse, uncomplicated; F11.10 Opioid abuse, uncomplicated; F17.210 Nicotine dependence, cigarettes, uncomplicated; F43.23 Adjustment disorder with mixed anxiety and depressed mood; Z79.899 Other long term (current) drug therapy; F15.10 Other stimulant abuse, uncomplicated; F14.10 Cocaine abuse, uncomplicated; Z87.442 Personal history of urinary calculi; Z91.51 Personal history of suicidal behavior
CPT/HCPCS: 80306; 81001; 82075; 87635; 99285

== ENCOUNTER 2021-02-25 11:36 | Inpatient (IN) | payer MEDICAID, OTHER ==
--- NOTE | 2021-02-25 12:46 | ED ---
General Adult HPI - General Chief complaint: Psychiatric Symptoms Stated complaint: Mental Health/Overdose Time Seen by Provider: 02/25/21 12:11 Source: patient, RN notes reviewed, old records reviewed Mode of arrival: ambulatory Limitations: no limitations - History of Present Illness Initial comments: 30-year-old male presenting with suicide attempt and suicidal ideation. Patient states he took 3 of his Suboxone tablets and drank one half of the fifth of whiskey. He states this was a suicide attempt. He denies any other ingestion but he is not forthcoming with history. He has had increased depression and suicidal ideation for some time. He is [facility] [place] [facility] and has been petitioned. - Related Data Home Medications Medication Instructions Recorded Confirmed Buprenorphine HCl/Naloxone HCl 1 tab SUBLINGUAL BID PRN 02/20/21 02/25/21 [Zubsolv 5.7-1.4 mg Tablet Sl] Previous Rx's Medication Instructions Recorded Folic Acid 1 mg PO DAILY tab 02/22/21 Gabapentin [Neurontin] 300 mg PO TID 30 Days cap 02/22/21 Nicotine Gum (Polacrilex) 2 mg BUCCAL Q4HR PRN 30 Days 02/22/21 [Nicorette] Thiamine [Vitamin B-1] 100 mg PO DAILY tab 02/22/21 risperiDONE [RisperDAL] 1 mg PO BID 30 Days tab 02/22/21 Allergies Allergy/AdvReac Type Severity Reaction Status Date / Time No Known Allergies Allergy Verified 02/25/21 12:33 Review of Systems ROS Statement: Those systems with pertinent positive or pertinent negative responses have been documented in the HPI. ROS Other: All systems not noted in ROS Statement are negative. Past Medical History Past Medical History: No Reported History Additional Past Medical History / Comment(s): kidney stones History of Any Multi-Drug Resistant Organisms: None Reported Past Surgical History: No Surgical Hx Reported Additional Past Surgical History / Comment(s): (L) arm surgery Past Anesthesia/Blood Transfusion Reactions: No Reported Reaction Past Psychological History: No Psychological Hx Reported Smoking Status: Current every day smoker Past Alcohol Use History: Abuse, Daily Past Drug Use History: Cocaine, Heroin, Marijuana, Methamphetamine, Opiates, Prescription Drug Abuse General Exam Limitations: no limitations General appearance: alert, in no apparent distress, appears intoxicated Head exam: Present: atraumatic, normocephalic Eye exam: Present: normal appearance, PERRL Respiratory exam: Present: normal lung sounds bilaterally. Absent: respiratory distress, wheezes Cardiovascular Exam: Present: regular rate, normal rhythm GI/Abdominal exam: Present: soft. Absent: distended, tenderness, guarding, rebound Extremities exam: Present: normal inspection, normal capillary refill. Absent: pedal edema Neurological exam: Present: alert, oriented X3, CN II-XII intact. Absent: motor sensory deficit Psychiatric exam: Present: depressed, anxious, suicidal ideation Skin exam: Present: warm, dry, intact. Absent: cyanosis, diaphoretic Course Vital Signs 02/25/21 12:06 Temperature 98.5 F Pulse Rate 90 Respiratory 18 Rate Blood Pressure 125/74 O2 Sat by Pulse 97 Oximetry - Reevaluation(s) Reevaluation #1: 02/25/21 1500 Patient's care is signed out to Dr. Sr, awaiting sobriety and EPS evaluation. EKG Findings - EKG Comments: EKG Findings:: EKG: Sinus rhythm with short IL, ventricular rate 75, IL interval 102, QRS duration 94, QTC 460 Medical Decision Making - Medical Decision Making I did complete a cert on the pt. He will be admitted. - Lab Data Result diagrams: 02/25/21 12:30 02/25/21 12:30 Lab Results 02/25/21 02/25/21 02/25/21 Range/Units 12:30 12:30 12:45 WBC 5.6 (3.8-10.6) k/uL RBC 4.78 (4.30-5.90) m/uL Hgb 13.8 (13.0-17.5) gm/dL Hct 41.8 (39.0-53.0) % MCV 87.4 (80.0-100.0) fL MCH 28.9 (25.0-35.0) pg MCHC 33.0 (31.0-37.0) g/dL RDW 13.1 (11.5-15.5) % Plt Count 253 (150-450) k/uL MPV 8.3 Neutrophils % 49 % Lymphocytes % 37 % Monocytes % 7 % Eosinophils % 4 % Basophils % 1 % Neutrophils # 2.7 (1.3-7.7) k/uL Lymphocytes # 2.1 (1.0-4.8) k/uL Monocytes # 0.4 (0-1.0) k/uL Eosinophils # 0.2 (0-0.7) k/uL Basophils # 0.0 (0-0.2) k/uL Sodium 139 (137-145) mmol/L Potassium 3.8 (3.5-5.1) mmol/L Chloride 106 (98-107) mmol/L Carbon Dioxide 22 (22-30) mmol/L Anion Gap 11 mmol/L BUN 13 (9-20) mg/dL Creatinine 0.64 L (0.66-1.25) mg/dL Est GFR (CKD-EPI)AfAm >90 (>60 ml/min/1.73 sqM) Est GFR (CKD-EPI)NonAf >90 (>60 ml/min/1.73 sqM) Glucose 111 H (74-99) mg/dL Calcium 9.5 (8.4-10.2) mg/dL Total Bilirubin 0.5 (0.2-1.3) mg/dL AST 27 (17-59) U/L ALT 21 (4-49) U/L Alkaline Phosphatase 91 (38-126) U/L Total Protein 7.1 (6.3-8.2) g/dL Albumin 4.4 (3.5-5.0) g/dL Salicylates <1.0 mg/dL Urine Opiates Screen Not Detected (NotDetected) Ur Oxycodone Screen Not Detected (NotDetected) Urine Methadone Screen Not Detected (NotDetected) Ur Propoxyphene Screen Not Detected (NotDetected) Acetaminophen <10.0 ug/mL Ur Barbiturates Screen Not Detected (NotDetected) U Tricyclic Antidepress Not Detected (NotDetected) Ur Phencyclidine Scrn Not Detected (NotDetected) Ur Amphetamines Screen Not Detected (NotDetected) U Methamphetamines Scrn Not Detected (NotDetected) U Benzodiazepines Scrn Not Detected (NotDetected) Urine Cocaine Screen Not Detected (NotDetected) U Marijuana (THC) Screen Detected H (NotDetected) Serum Alcohol 180 mg/dL Disposition Clinical Impression: Polysubstance abuse, Major depressive disorder, Attempted suicide, Suicidal ideation Disposition: ADMITTED IP TO THIS [facility] Condition: Stable Is patient prescribed a controlled substance at d/c from ED?: No Referrals: None,Stated [Primary Care Provider] - 1-2 days Time of Disposition: 14:58
[2021-02-25 12:52] LABS: Basophils % (A) 1 %; Eosinophils # (A) 0.2 k/uL (0-0.7); Eosinophils % (A) 4 %; HCT 41.8 % (39.0-53.0); HGB 13.8 gm/dL (13.0-17.5); Lymphocytes # (A) 2.1 k/uL (1.0-4.8); Lymphocytes % (A) 37 %; MCH 28.9 pg (25.0-35.0); MCV 87.4 fL (80.0-100.0); Mean Platelet Volume 8.3; Monocytes # (A) 0.4 k/uL (0-1.0); Monocytes % (A) 7 %; Neutrophils # (A) 2.7 k/uL (1.3-7.7); Neutrophils % (A) 49 %; Platelet Count 253 k/uL (150-450); RBC 4.78 m/uL (4.30-5.90); RDW 13.1 % (11.5-15.5); WBC 5.6 k/uL (3.8-10.6)
[2021-02-25 13:06] LABS: ALT 21 U/L (4-49); AST 27 U/L (17-59); Acetaminophen <10.0 ug/mL; African American GFR (CKD) >90 (>60 ml/min/1.73 sqM); Albumin 4.4 g/dL (3.5-5.0); Alkaline Phosphatase 91 U/L (38-126); Anion Gap 11 mmol/L; Blood Urea Nitrogen 13 mg/dL (9-20); Calcium 9.5 mg/dL (8.4-10.2); Carbon Dioxide 22 mmol/L (22-30); Chloride 106 mmol/L (98-107); Glucose 111 mg/dL (74-99); Non-African American GFR(CKD) >90 (>60 ml/min/1.73 sqM); Potassium 3.8 mmol/L (3.5-5.1); Salicylate <1.0 mg/dL; Sodium 139 mmol/L (137-145); Total Bilirubin 0.5 mg/dL (0.2-1.3); Total Protein 7.1 g/dL (6.3-8.2)
[2021-02-25 13:09] LABS: Alcohol 180 mg/dL
[2021-02-25 13:11] LABS: Amphetamine Screen,Urine Not Detected (NotDetected); Barbiturate Screen,Urine Not Detected (NotDetected); Benzodiazepines Screen,Urine Not Detected (NotDetected); Cocaine Screen,Urine Not Detected (NotDetected); Methadone Screen, Urine Not Detected (NotDetected); Opiate Screen,Urine Not Detected (NotDetected); Oxycodone Screen, Urine Not Detected (NotDetected); Phencyclidine Screen,Urine Not Detected (NotDetected); Tricyclic Antidepressant,Urine Not Detected (NotDetected); Urn Cannabinoid Scrn Detected (NotDetected)
[2021-02-25] MEDS ORDERED: LORazepam 2 MG/ML INJ IM ONE (18:20)
[2021-02-25] MEDS ORDERED: HALOPERIDOL LACTATE 5 MG/ML 1 ML VIAL IM ONE (18:20)
[2021-02-25] MEDS ORDERED: ACETAMINOPHEN TAB 325 MG TAB PO PRN (19:01)
[2021-02-25] MEDS ORDERED: MAGNESIUM HYDROXIDE 2,400 MG/10 ML CUP PO PRN (19:01)
[2021-02-25] MEDS ORDERED: MAG HYDROX/AL HYDROX/SIMETH 30 ML CUP PO PRN (19:01)
[2021-02-25] MEDS ORDERED: LORazepam 2 MG/ML INJ IM PRN (19:10)
[2021-02-25 19:12] VITALS: RESP 16
[2021-02-25] MEDS ORDERED: HALOPERIDOL LACTATE 5 MG/ML 1 ML VIAL IM PRN (19:13)
[2021-02-26] MEDS: NICOTINE 14MG/24HR PATCH TRANSDERM SCH (08:41)
[2021-02-26 10:17] LABS: Basophils % (A) 0 %; Eosinophils # (A) 0.2 k/uL (0-0.7); Eosinophils % (A) 3 %; HCT 43.5 % (39.0-53.0); HGB 13.9 gm/dL (13.0-17.5); Lymphocytes # (A) 1.3 k/uL (1.0-4.8); Lymphocytes % (A) 22 %; MCV 90.4 fL (80.0-100.0); Mean Platelet Volume 8.3; Monocytes # (A) 0.4 k/uL (0-1.0); Monocytes % (A) 6 %; Neutrophils # (A) 4.1 k/uL (1.3-7.7); Neutrophils % (A) 67 %; Platelet Count 231 k/uL (150-450); RBC 4.81 m/uL (4.30-5.90); RDW 13.1 % (11.5-15.5); WBC 6.1 k/uL (3.8-10.6)
[2021-02-26 10:28] LABS: ALT 19 U/L (4-49); AST 34 U/L (17-59); African American GFR (CKD) >90 (>60 ml/min/1.73 sqM); Albumin 4.1 g/dL (3.5-5.0); Alkaline Phosphatase 97 U/L (38-126); Anion Gap 6 mmol/L; Blood Urea Nitrogen 16 mg/dL (9-20); Calcium 9.5 mg/dL (8.4-10.2); Carbon Dioxide 28 mmol/L (22-30); Chloride 104 mmol/L (98-107); Glucose 106 mg/dL (74-99); Non-African American GFR(CKD) >90 (>60 ml/min/1.73 sqM); Potassium 4.6 mmol/L (3.5-5.1); Sodium 138 mmol/L (137-145); Total Bilirubin 0.5 mg/dL (0.2-1.3); Total Protein 6.8 g/dL (6.3-8.2)
--- NOTE | 2021-02-26 12:11 | P.HP ---
Psychiatric H&P - . H&P Date: 02/26/21 History & Physical: Allergies Allergy/AdvReac Type Severity Reaction Status Date / Time No Known Allergies Allergy Verified 02/25/21 12:33 Vital Signs Temp 97.8 F 02/25/21 19:11 Pulse 74 02/25/21 19:11 Resp 16 02/25/21 19:11 BP 108/67 02/25/21 19:11 Pulse Ox 95 02/25/21 19:11 Intake & Output 02/25/21 02/26/21 02/26/21 18:59 06:59 18:59 Weight 70.307 kg Laboratory Last Values WBC 6.1 k/uL (3.8-10.6) 02/26/21 09:48 RBC 4.81 m/uL (4.30-5.90) 02/26/21 09:48 Hgb 13.9 gm/dL (13.0-17.5) 02/26/21 09:48 Hct 43.5 % (39.0-53.0) 02/26/21 09:48 MCV 90.4 fL (80.0-100.0) 02/26/21 09:48 MCH 29.0 pg (25.0-35.0) 02/26/21 09:48 MCHC 32.0 g/dL (31.0-37.0) 02/26/21 09:48 RDW 13.1 % (11.5-15.5) 02/26/21 09:48 Plt Count 231 k/uL (150-450) 02/26/21 09:48 MPV 8.3 02/26/21 09:48 Neutrophils % 67 % 02/26/21 09:48 Lymphocytes % 22 % 02/26/21 09:48 Monocytes % 6 % 02/26/21 09:48 Eosinophils % 3 % 02/26/21 09:48 Basophils % 0 % 02/26/21 09:48 Neutrophils # 4.1 k/uL (1.3-7.7) 02/26/21 09:48 Lymphocytes # 1.3 k/uL (1.0-4.8) 02/26/21 09:48 Monocytes # 0.4 k/uL (0-1.0) 02/26/21 09:48 Eosinophils # 0.2 k/uL (0-0.7) 02/26/21 09:48 Basophils # 0.0 k/uL (0-0.2) 02/26/21 09:48 Sodium 138 mmol/L (137-145) 02/26/21 09:48 Potassium 4.6 mmol/L (3.5-5.1) 02/26/21 09:48 Chloride 104 mmol/L (98-107) 02/26/21 09:48 Carbon Dioxide 28 mmol/L (22-30) 02/26/21 09:48 Anion Gap 6 mmol/L 02/26/21 09:48 BUN 16 mg/dL (9-20) 02/26/21 09:48 Creatinine 0.71 mg/dL (0.66-1.25) 02/26/21 09:48 Est GFR (CKD-EPI)AfAm >90 (>60 ml/min/1.73 sqM) 02/26/21 09:48 Est GFR (CKD-EPI)NonAf >90 (>60 ml/min/1.73 sqM) 02/26/21 09:48 Glucose 106 mg/dL (74-99) H 02/26/21 09:48 Calcium 9.5 mg/dL (8.4-10.2) 02/26/21 09:48 Total Bilirubin 0.5 mg/dL (0.2-1.3) 02/26/21 09:48 AST 34 U/L (17-59) 02/26/21 09:48 ALT 19 U/L (4-49) 02/26/21 09:48 Alkaline Phosphatase 97 U/L (38-126) 02/26/21 09:48 Total Protein 6.8 g/dL (6.3-8.2) 02/26/21 09:48 Albumin 4.1 g/dL (3.5-5.0) 02/26/21 09:48 TSH 2.010 mIU/L (0.465-4.680) 02/26/21 09:48 Salicylates <1.0 mg/dL 02/25/21 12:30 Urine Opiates Screen Not Detected (NotDetected) 02/25/21 12:45 Ur Oxycodone Screen Not Detected (NotDetected) 02/25/21 12:45 Urine Methadone Screen Not Detected (NotDetected) 02/25/21 12:45 Ur Propoxyphene Screen Not Detected (NotDetected) 02/25/21 12:45 Acetaminophen <10.0 ug/mL 02/25/21 12:30 Ur Barbiturates Screen Not Detected (NotDetected) 02/25/21 12:45 U Tricyclic Antidepress Not Detected (NotDetected) 02/25/21 12:45 Ur Phencyclidine Scrn Not Detected (NotDetected) 02/25/21 12:45 Ur Amphetamines Screen Not Detected (NotDetected) 02/25/21 12:45 U Methamphetamines Scrn Not Detected (NotDetected) 02/25/21 12:45 U Benzodiazepines Scrn Not Detected (NotDetected) 02/25/21 12:45 Urine Cocaine Screen Not Detected (NotDetected) 02/25/21 12:45 U Marijuana (THC) Screen Detected (NotDetected) H 02/25/21 12:45 Serum Alcohol 180 mg/dL 02/25/21 12:30 Coronavirus (PCR) Not Detected (Not Detectd) 02/25/21 17:14 02/26/21 12:00 Initial evaluation: History of present illness This is a 30-year-old male who was hospitalized by myself for the second time The patient was admitted last week where he had presented to the ER with severe alcohol use and methamphetamine use Patient at this time refused to answer any questions and was mute during the interview Patient gave some fluid but answers. He stated that he needs to get out of here Patient and continue to change his clothes and did not respond to any questions asked The chart reveals that the patient had made a suicide attempt and had admitted to suicidal ideations Patient had taken 3 of his Suboxone tablets and drank half of the fifth of whiskey He had admitted it was a suicide attempt The patient also had admitted to feeling increasingly depressed since he and his had broken up although the also has problems with drugs and cheating on him The patient has 2 children who are now staying with the grandmother The patient will also quit his job and has been unemployed for about a year The patient according to the chart also was on Zubsolv 5.7/1.4 twice a day when necessary but has dropped out of treatment from the opioid clinic where his PCP has declined to prescribe the opiates due to his relapse Past history personal and social history: could not be dealt with in detail at the present time due to patient's refusal to participate in the evaluation Patient made some grunting sounds few times but refused to respond Some of the information is covered above and from the pass assessment done by myself about a week ago Please refer to the last week's assessment for further details Mental status examination reveals a young male who currently appears in no acute physical distress Patient appears angry projective and withdrawn Patient only made occasional monosyllabic responses but otherwise of his transfer any questions Action continued to change clothes and was angry mood and unmotivated for any further discussion Further attempts to assess the patient was abandoned due to his current behavior Patient's formal and operational judgment are poor Insight and his problem is impaired Problem-solving abilities impaired Plan: The patient will be hospitalized on the unit for further evaluation and treatment Therapy will be focused on providing supportive care and brings coping abilities with a mild to mild treatment Patient will also participate in on the chilel activities Encourage appropriate interaction through motivational interviewing redirection and supportive care Will monitor at this time for any withdrawal symptoms and continued observation Dony Grove M.D. 02/26/21
--- NOTE | 2021-02-26 20:41 | P.CONS ---
History of Present Illness - Reason for Consult Consult date: 02/26/21 - History of Present Illness The patient is a 30-year-old male with a PMH of polysubstance abuse who presents to the emergency room with complaints of depression with suicidal ideation along with auditory and visual hallucinations. The patient was admitted to the mental health unit when he was seen and evaluated. The patient reports that he has been struggling with his substance use, using methamphetamine, along with drinking half a gallon of whiskey daily for the past several years. He notes wanting to quit and that he is interested in going to a rehab facility. He denied any history of alcohol withdrawal seizures or requiring intubation and her Ativan infusions. He denied any physical complaints at the time of interview. He denied abdominal pain, nausea, vomiting, fever, chills, chest pain, shortness of breath. He further reports smoking 2 packs of cigarettes daily and also wishes to seek assistance with quitting that. Patient notes that he is planning on overdosing on a friend's medications but decided not to. Review of systems: Pertinent positives and negatives as discussed in HPI, a complete review of systems was performed and all other systems are negative. Physical examination: General: non toxic, no distress, appears at stated age, normal weight Derm: no unusual rashes/lesions no unusual ecchymoses, warm, dry Head: atraumatic, normocephalic, symmetric Eyes: EOMI, no lid lag, anicteric sclera, pupils equal round reactive to light ENT: Nose and ears atraumatic, no thrush, no pharyngeal erythema Neck: No thyromegaly, no cervical lymphadenopathy, trachea midline, supple Mouth: no lip lesion, mucus membranes moist Cardiovascular: S1S2 reg, no murmur, positive posterior tibial pulse bilateral, no edema, capillary refill less than 2 seconds Lungs: CTA bilateral, no rhonchi, no rales , no accessory muscle use Abdominal: soft, nontender to palpation, no guarding, no appreciable or ganomegaly, normal bowel sounds Ext: no gross muscle atrophy, muscle strength 5 out of 5 in all 4 extremities grossly, no contractures, Neuro: CN II-XI grossly intact, light touch intact all 4 extremities, finger to nose within normal limits, Psych: Alert, oriented, appropriate affect Assessment/plan Polysubstance abuse, alcohol abuse, tobacco abuse -Strongly advised on importance of cessation -Thiamine, multivitamin -Plan for rehab -Nicotine patch as needed Depression and suicidal ideation -As per psychiatry Thank you for allowing us to participate in the care of this patient. We will follow peripherally. Do not hesitate to contact us with questions. Someone can be reached from the [facility] hospitalist group at all hours of the day at [phone]. Past Medical History Past Medical History: No Reported History Additional Past Medical History / Comment(s): kidney stones History of Any Multi-Drug Resistant Organisms: None Reported Past Surgical History: No Surgical Hx Reported Additional Past Surgical History / Comment(s): (L) arm surgery Past Anesthesia/Blood Transfusion Reactions: No Reported Reaction Past Psychological History: No Psychological Hx Reported Smoking Status: Current every day smoker Past Alcohol Use History: Abuse, Daily Additional Past Alcohol Use History / Comment(s): pt reports that he has been drinking every day. Past Drug Use History: Cocaine, Heroin, Marijuana, Methamphetamine, Opiates, Prescription Drug Abuse Medications and Allergies Home Medications Medication Instructions Recorded Confirmed Type Buprenorphine HCl/Naloxone HCl 1 tab SUBLINGUAL BID PRN 02/20/21 02/26/21 History [Zubsolv 5.7-1.4 mg Tablet Sl] Folic Acid 1 mg PO DAILY tab 02/22/21 02/26/21 Rx Gabapentin [Neurontin] 300 mg PO TID 30 Days cap 02/22/21 02/26/21 Rx Nicotine Gum (Polacrilex) 2 mg BUCCAL Q4HR PRN 30 Days 02/22/21 02/26/21 Rx [Nicorette] Thiamine [Vitamin B-1] 100 mg PO DAILY tab 02/22/21 02/26/21 Rx risperiDONE [RisperDAL] 1 mg PO BID 30 Days tab 02/22/21 02/26/21 Rx Allergies Allergy/AdvReac Type Severity Reaction Status Date / Time No Known Allergies Allergy Verified 02/26/21 13:15 Physical Exam Vitals: Intake and Output 02/26/21 02/26/21 02/26/21 06:59 14:59 22:59 Other: Weight 70.307 kg Results CBC & Chem 7: 02/26/21 09:48 02/26/21 09:48 Labs: Abnormal Lab Results - Last 24 Hours (Table) 02/26/21 Range/Units 09:48 Glucose 106 H (74-99) mg/dL
[2021-02-27] MEDS: MULTIVITAMINS, THERA 1 EACH TAB PO SCH (08:26)
[2021-02-27] MEDS: THIAMINE 100 MG TAB PO SCH (08:26)
[2021-02-27] MEDS: NICOTINE GUM (POLACRILEX) 2 MG GUM BUCCAL PRN ×2 (08:29→16:06)
[2021-02-27] MEDS: NICOTINE 14MG/24HR PATCH TRANSDERM SCH (08:38)
[2021-02-27] MEDS: LORazepam 1 MG TAB PO PRN (10:41)
[2021-02-27 12:58] LABS: LDL Cholesterol,Calculated 120.7 mg/dL (0.0-131.0)
--- NOTE | 2021-02-27 13:07 | P.PN ---
Subjective Progress Note Date: 02/27/21 Principal diagnosis: Adjustment disorder with mixed emotional features Major depressive disorder unspecified Alcohol use disorder unspecified Methamphetamine use disorder unspecified Subjective data: I just have too much going on I'm not able to see my kids for the holidays I need to do something about my drug problem Objective data: Patient remains very withdrawn Patient has much difficulty verbalizing his feelings and had to be frequently encouraged to do few responses Affect remains downcast Patient remains preoccupied and perplexed Self-esteem and confidence remains very low Patient appears helpless and hopeless Assessment: Major depressive disorder acute Methamphetamine use disorder Alcohol use disorder Plan: We'll restart the patient's previous medications that include gabapentin 300 mg 3 times a day and Risperdal 1 mg twice a day We'll also has Zoloft 100 mg daily Continue supportive care Maintaining safety precautions Dony Perfecto Argueta 02/27/2021 Objective - Vital Signs Vital signs: Vital Signs Temp 97.8 F 02/25/21 19:11 Pulse 74 02/25/21 19:11 Resp 16 02/25/21 19:11 BP 108/67 02/25/21 19:11 Pulse Ox 95 02/25/21 19:11 Intake & Output 02/26/21 02/27/21 02/27/21 18:59 06:59 18:59 Weight 70.307 kg 77.2 kg - Labs CBC & Chem 7: 02/26/21 09:48 02/26/21 09:48 Labs: Abnormal Lab Results - Last 24 Hours (Table) 02/26/21 Range/Units 09:48 Triglycerides 260.00 H (0.00-149.00) mg/dL Cholesterol 217.00 H (0.00-200.00) mg/dL VLDL Cholesterol, Calc 52.00 H (5.00-40.00) mg/dL
[2021-02-27] MEDS: GABAPENTIN 300 MG CAP PO SCH ×2 (16:10→20:45)
[2021-02-27] MEDS: SERTRALINE 100 MG TAB PO SCH (16:11)
[2021-02-27] MEDS: risperiDONE 1 MG TAB PO SCH (20:45)
[2021-02-28 06:49] VITALS: TEMP 97.6
[2021-02-28] MEDS: risperiDONE 1 MG TAB PO SCH (08:47)
[2021-02-28] MEDS: THIAMINE 100 MG TAB PO SCH (08:47)
[2021-02-28] MEDS: MULTIVITAMINS, THERA 1 EACH TAB PO SCH (08:47)
[2021-02-28] MEDS: SERTRALINE 100 MG TAB PO SCH (08:47)
[2021-02-28] MEDS: GABAPENTIN 300 MG CAP PO SCH ×3 (08:47→23:36)
[2021-02-28] MEDS: NICOTINE GUM (POLACRILEX) 2 MG GUM BUCCAL PRN ×3 (08:47→19:09)
[2021-02-28] MEDS: NICOTINE 14MG/24HR PATCH TRANSDERM SCH (08:47)
[2021-02-28] MEDS: LORazepam 1 MG TAB PO PRN ×2 (10:37→17:39)
--- NOTE | 2021-02-28 11:54 | P.PN ---
Progress Note - Text Progress Note Date: 02/28/21 Interval History: Patient was seen resting in bed and was directable and agreeable to speak with advertising copywriter in his room. The patient reports that he's been feeling increasingly depressed due to his current situation with his family. He does express that his children will be coming over to his home for [place]. He is currently not reporting any suicidal or homicidal ideation, intention, and/or plan today. He did rescind his AMA form saying that he realizes he needs to get help. He does express some future orientation stating that he plans to go to substance abuse rehabilitation after the holidays. He reports that he wants to spend the time with his family. He is otherwise denying any auditory or visualizations. He is reporting no paranoia or other delusions at this time. Patient has been adherent with his medications and is not endorsing any significant side effects. The patient's primary concern at this time is his inability to sleep. He is open to trying a trial of Seroquel help manage his insomnia and mood lability/depression. The patient was encouraged to go to groups however stated that he was feeling increasingly anxious about being around other people at this time. He does acknowledge that his substance use has contributed significantly to his anxiety and his paranoia. Mental Status Exam: General Appearance: Patient appears to be stated age is alert, directable, and cooperative. Behavior: Patient is calmly seated without any agitated behavior. Speech: Patient's speech is fluent and nonpressured. Monotone. Low in volume. Mood/Affect: Mood is depressed, affect is congruent and withdrawn. Suicidality/Homicidality: Patient denies having any suicidal or homicidal ideation intent or plan. Perceptions: Patient denies any visual hallucinations and denies any auditory hallucinations Though content/process: There is no evidence of any delusional thought content and thought process is linear and goal-directed. Memory and concentration: AOX3, grossly intact for the purposes of this session Judgment and insight: Improving mildly Vital Signs Temp 97.6 F 02/28/21 06:48 Pulse 101 H 02/28/21 10:38 Resp 16 02/28/21 06:48 BP 111/67 02/28/21 10:38 Pulse Ox 95 02/25/21 19:11 Intake & Output 02/27/21 02/28/21 02/28/21 18:59 06:59 18:59 Weight 77.2 kg Laboratory Results - Last 24 Hours 02/26/21 09:48 Triglycerides 260.00 H Cholesterol 217.00 H LDL Cholesterol, Calc 120.7 VLDL Cholesterol, Calc 52.00 H HDL Cholesterol 44.30 Cholesterol/HDL Ratio 4.90 Assessment Major depressive disorder, recurrent, severe Methamphetamine use disorder Alcohol use disorder Nicotine dependence Plan: -Patient continues to meet criteria for inpatient psychiatric admission for symptom stabilization and safety. Patient has signed adult voluntary form and medication consent and was placed in patient's chart. Patient initially signed AMA however rescinded that. -Medications: Increase Zoloft to 150 mg by mouth daily for depression/anxiety Continue gabapentin 300 mg by mouth 3 times a day off label use for anxiety and substance abuse Change Risperdal to Seroquel 100 mg by mouth at bedtime for insomnia and mood stabilization/augmentation -When necessary Ativan and Haldol for agitation/aggression. -NRT - nicotine patch -SW on board for discharge planning. Encouraged the patient to participate in milieu.
[2021-02-28 17:14] VITALS: BP 110/58; PULSE 106
[2021-02-28] MEDS: QUEtiapine 100 MG TAB PO SCH (20:26)
[2021-03-01] MEDS: NICOTINE 14MG/24HR PATCH TRANSDERM SCH (08:22)
[2021-03-01] MEDS: SERTRALINE 100 MG TAB PO SCH (08:23)
[2021-03-01] MEDS: GABAPENTIN 300 MG CAP PO SCH (08:23)
[2021-03-01] MEDS: MULTIVITAMINS, THERA 1 EACH TAB PO SCH (08:23)
[2021-03-01] MEDS: THIAMINE 100 MG TAB PO SCH (08:25)
[2021-03-01] MEDS: NICOTINE GUM (POLACRILEX) 2 MG GUM BUCCAL PRN ×3 (09:10→19:58)
--- NOTE | 2021-03-01 11:10 | P.PN ---
Progress Note - Text Progress Note Date: 03/01/21 Interval History: Patient was seen resting in bed and was directable and agreeable to speak with singer songwriter in his room. The patient reports he is feeling better. He reports he is tolerating the medication changes well aside from mild "grogginess" due to the seroquel. He reports more future-orientation today stating that he is wanting to go to rehab after spending Mary with his family. He does not report and active suicidal or homicidal ideation, intention, and/or plan today. He reports no auditory or visual hallucinations. He denies any paranoia or other delusions. He reports no issues with sleep or appetite. Mental Status Exam: General Appearance: Patient appears to be stated age is alert, directable, and cooperative. Behavior: Patient is calmly seated without any agitated behavior. Speech: Patient's speech is fluent and nonpressured. Monotone. Low in volume. Mood/Affect: Mood is mildly improving, affect is congruent and constricted. Suicidality/Homicidality: Patient denies having any suicidal or homicidal ideation intent or plan. Perceptions: Patient denies any visual hallucinations and denies any auditory hallucinations Though content/process: There is no evidence of any delusional thought content and thought process is linear and goal-directed. Memory and concentration: AOX3, grossly intact for the purposes of this session Judgment and insight: Improving mildly Vital Signs Temp 97.6 F 02/28/21 06:48 Pulse 106 H 02/28/21 17:12 Resp 16 02/28/21 06:48 BP 110/58 02/28/21 17:12 Pulse Ox 95 02/25/21 19:11 Assessment Major depressive disorder, recurrent, severe Methamphetamine use disorder Alcohol use disorder Nicotine dependence Plan: -Patient continues to meet criteria for inpatient psychiatric admission for symptom stabilization and safety. Patient has signed adult voluntary form and medication consent and was placed in patient's chart. Patient initially signed AMA however rescinded that. -Medications: Continue [id number] mg by mouth daily for depression/anxiety Increase gabapentin to 400 mg by mouth 3 times a day off label use for anxiety and substance abuse Continue Seroquel 100 mg by mouth at bedtime for insomnia and mood stabilization/augmentation -When necessary Ativan and Haldol for agitation/aggression. -NRT - nicotine patch -SW on board for discharge planning. Encouraged the patient to participate in milieu.
[2021-03-01] MEDS: LORazepam 1 MG TAB PO PRN ×2 (14:14→22:39)
[2021-03-01] MEDS: GABAPENTIN 400 MG CAP PO SCH ×3 (15:37→22:39)
[2021-03-01] MEDS: QUEtiapine 100 MG TAB PO SCH (19:57)
[2021-03-02] MEDS: SERTRALINE 100 MG TAB PO SCH (08:50)
[2021-03-02] MEDS: NICOTINE GUM (POLACRILEX) 2 MG GUM BUCCAL PRN (08:50)
[2021-03-02] MEDS: MULTIVITAMINS, THERA 1 EACH TAB PO SCH (08:50)
[2021-03-02] MEDS: THIAMINE 100 MG TAB PO SCH (08:50)
[2021-03-02] MEDS: GABAPENTIN 400 MG CAP PO SCH (08:50)
[2021-03-02] MEDS: NICOTINE 14MG/24HR PATCH TRANSDERM SCH (08:50)
--- NOTE | 2021-03-02 13:17 | P.DS ---
Providers Date of admission: 02/25/21 18:55 Expected date of discharge: 03/02/21 Attending physician: Marcial Schrader MD Consults: 02/25/21 19:01 Consult Physician Routine Consulting Provider: Conchita Ahumada Consult Reason/Comments: medical management Do you want consulting provider notified?: Yes Primary care physician: Stated None - Discharge Diagnosis(es) (1) Major depressive disorder Current Visit: Yes Status: Acute Priority: High (2) Nicotine dependence Current Visit: Yes Status: Chronic Priority: Medium (3) Methamphetamine abuse Current Visit: Yes Status: Chronic Priority: Medium (4) Polysubstance abuse Current Visit: Yes Status: Chronic Priority: Medium Hospital Course: Admission HPI: Initial psychiatric evaluation was completed by Dr. Grove on 02/26/2021 who wrote: "This is a 30-year-old male who was hospitalized by myself for the second time The patient was admitted last week where he had presented to the ER with severe alcohol use and methamphetamine use Patient at this time refused to answer any questions and was mute during the interview Patient gave some fluid but answers. He stated that he needs to get out of here Patient and continue to change his clothes and did not respond to any questions asked The chart reveals that the patient had made a suicide attempt and had admitted to suicidal ideations Patient had taken 3 of his Suboxone tablets and drank half of the fifth of whiskey He had admitted it was a suicide attempt The patient also had admitted to feeling increasingly depressed since he and his had broken up although the also has problems with drugs and cheating on him The patient has 2 children who are now staying with the grandmother The patient will also quit his job and has been unemployed for about a year The patient according to the chart also was on Zubsolv 5.7/1.4 twice a day when necessary but has dropped out of treatment from the opioid clinic where his PCP has declined to prescribe the opiates due to his relapse" Hospital course: Upon admission to the unit patient was initially endorsing significant depression and irritability and initially signed an AMA discharge request. H owever, the patient rescinded that request and made the decision to receive help for his depression and his substance abuse. The patient was started on Zoloft for management of his depression/anxiety which was added to his regimen of gabapentin and Seroquel. Over the course of the hospitalization, the medications to graduate titrated to final doses. The patient tolerated medications well and reportedside effects. He despite significant improvement in regards to his mood, sleep, appetite, and future orientation. The patient expressed a strong desire to be reunited with his family and to get help. The patient set up an appointment for inpatient substance abuse rehabilitation for 03/10/2021. He reports that his children would be over at his mother's home for [place] and he is looking for to it. The patient has a strong desire to be a good father to his children. Quality of discharge, the patient not reporting any suicidal or homicidal ideation, intention, and/or plan. He is not reporting any access to firearms or other weapons. He is denying any auditory or visual hallucinations. Reports no paranoia or other delusions. The patient expresses a strong desire to go to rehabilitation and set up an appointment at the end of this month. The patient was counseled at length on his substance abuse and is actively seeking help. He was educated on his medications and he points regular adherence and is scheduled for follow-up appointments with [facility]. Prior to discharge, family meeting will be arranged by social insurance adviser answer questions and ensure safety. Mental status exam: General Appearance: Patient appears to be stated age is alert, pleasant, and cooperative. Patient is in no acute distress and has fair hygiene and grooming Behavior: Patient is calmly seated without any agitated behavior. Speech: Patient's speech is fluent and nonpressured. Mood/Affect: Patient reports their mood is "feeling better", affect is congruent and constricted. Suicidality/Homicidality: Patient denies having any suicidal or homicidal ideation intent or plan. Perceptions: Patient denies any auditory or visual hallucinations. Though content/process: There is no evidence of any delusional thought content and thought process is linear and goal-directed. Much more future oriented. Memory and concentration: AOX3, grossly intact for the purposes of this session. Can spell "WORLD" backwards correctly. Judgment and insight: Improved with guarded prognosis Vital Signs Temp 97.6 F 02/28/21 06:48 Pulse 106 H 02/28/21 17:12 Resp 16 02/28/21 06:48 BP 110/58 02/28/21 17:12 Pulse Ox 95 02/25/21 19:11 Impression: Major depressive disorder, recurrent, severe Methamphetamine use disorder Alcohol use disorder Nicotine dependence Plan: -Continue with discharge today as patient has improved and stabilized psychiatrically and is not currently an imminent threat to himself and/or others. Patient will remain at chronically elevated risk for harm to self and/or others due to his impulsivity and polysubstance abuse. -Continue medications: Zoloft 150 mg by mouth daily for depression/anxiety Gabapentin 400 mg by mouth 3 times a day from label use for anxiety Seroquel 100 mg by mouth at bedtime for mood augmentation Habitrol patches for nicotine cessation -Patient was counseled on the need for medication compliance and appropriate follow-up at mental health and also primary care for medical issues. Patient verbalized understanding and agreed. -Social work to arrange for and conduct family meeting to ensure safety upon discharge and answer any questions/concerns. Social work also to arrange for patients follow up appointments with [facility] for psychiatric care along with follow up with primary care provider. -Patient counseled on abstaining from recreational drugs and marijuana and alcohol. Was informed/educated on the adverse effects on their physical and mental health. Patient verbally agreed and understood. Scheduled for intake for rehabilitation on 03/10/21. -Patient was instructed to return to the hospital or seek immediate medical care if their psychiatric or medical symptoms do worsen or reoccur. -Psychoeducation and supportive therapy provided to patient. Risks and benefits of pharmacological treatment versus the risks and benefits of nontreatment weight and discussed. Informed consent discussion held. Common side effects of psychotropics discussed such as, but not limited to headache, GI disturbance, sexual dysfunction, movement disorders, sedation, and orthostatic hypotension. Life threatening and blackbox warnings of prescribed medications also discussed. Potential risks of operating a vehicle or heavy machinery discussed with patient at length. Advised on importance of compliance and a reliable and responsible manner. Patient advised to review FDA consumer labeling of all medications prior to taking. Patient verbalized understanding of potential risks, and agrees with current treatment plan. Patient advised to medically contact physician/emergency personnel if any acute changes in condition occur. Laboratory Results WBC 6.1 k/uL (3.8-10.6) 02/26/21 09:48 RBC 4.81 m/uL (4.30-5.90) 02/26/21 09:48 Hgb 13.9 gm/dL (13.0-17.5) 02/26/21 09:48 Hct 43.5 % (39.0-53.0) 02/26/21 09:48 MCV 90.4 fL (80.0-100.0) 02/26/21 09:48 MCH 29.0 pg (25.0-35.0) 02/26/21 09:48 MCHC 32.0 g/dL (31.0-37.0) 02/26/21 09:48 RDW 13.1 % (11.5-15.5) 02/26/21 09:48 Plt Count 231 k/uL (150-450) 02/26/21 09:48 MPV 8.3 02/26/21 09:48 Neutrophils % 67 % 02/26/21 09:48 Lymphocytes % 22 % 02/26/21 09:48 Monocytes % 6 % 02/26/21 09:48 Eosinophils % 3 % 02/26/21 09:48 Basophils % 0 % 02/26/21 09:48 Neutrophils # 4.1 k/uL (1.3-7.7) 02/26/21 09:48 Lymphocytes # 1.3 k/uL (1.0-4.8) 02/26/21 09:48 Monocytes # 0.4 k/uL (0-1.0) 02/26/21 09:48 Eosinophils # 0.2 k/uL (0-0.7) 02/26/21 09:48 Basophils # 0.0 k/uL (0-0.2) 02/26/21 09:48 Sodium 138 mmol/L (137-145) 02/26/21 09:48 Potassium 4.6 mmol/L (3.5-5.1) 02/26/21 09:48 Chloride 104 mmol/L (98-107) 02/26/21 09:48 Carbon Dioxide 28 mmol/L (22-30) 02/26/21 09:48 Anion Gap 6 mmol/L 02/26/21 09:48 BUN 16 mg/dL (9-20) 02/26/21 09:48 Creatinine 0.71 mg/dL (0.66-1.25) 02/26/21 09:48 Est GFR (CKD-EPI)AfAm >90 (>60 ml/min/1.73 sqM) 02/26/21 09:48 Est GFR (CKD-EPI)NonAf >90 (>60 ml/min/1.73 sqM) 02/26/21 09:48 Glucose 106 mg/dL (74-99) H 02/26/21 09:[address] Glu mg/dL 103 02/26/21 09:48 Hemoglobin A1c 5.2 % (4.0-6.0) 02/26/21 09:48 Calcium 9.5 mg/dL (8.4-10.2) 02/26/21 09:48 Total Bilirubin 0.5 mg/dL (0.2-1.3) 02/26/21 09:48 AST 34 U/L (17-59) 02/26/21 09:48 ALT 19 U/L (4-49) 02/26/21 09:48 Alkaline Phosphatase 97 U/L (38-126) 02/26/21 09:48 Total Protein 6.8 g/dL (6.3-8.2) 02/26/21 09:48 Albumin 4.1 g/dL (3.5-5.0) 02/26/21 09:48 Triglycerides 260.00 mg/dL (0.00-149.00) H 02/26/21 09:48 Cholesterol 217.00 mg/dL (0.00-200.00) H 02/26/21 09:48 LDL Cholesterol, Calc 120.7 mg/dL (0.0-131.0) 02/26/21 09:48 VLDL Cholesterol, Calc 52.00 mg/dL (5.00-40.00) H 02/26/21 09:48 HDL Cholesterol 44.30 mg/dL (40.00-60.00) 02/26/21 09:48 Cholesterol/HDL Ratio 4.90 Ratio 02/26/21 09:48 TSH 2.010 mIU/L (0.465-4.680) 02/26/21 09:48 Salicylates <1.0 mg/dL 02/25/21 12:30 Urine Opiates Screen Not Detected (NotDetected) 02/25/21 12:45 Ur Oxycodone Screen Not Detected (NotDetected) 02/25/21 12:45 Urine Methadone Screen Not Detected (NotDetected) 02/25/21 12:45 Ur Propoxyphene Screen Not Detected (NotDetected) 02/25/21 12:45 Acetaminophen <10.0 ug/mL 02/25/21 12:30 Ur Barbiturates Screen Not Detected (NotDetected) 02/25/21 12:45 U Tricyclic Antidepress Not Detected (NotDetected) 02/25/21 12:45 Ur Phencyclidine Scrn Not Detected (NotDetected) 02/25/21 12:45 Ur Amphetamines Screen Not Detected (NotDetected) 02/25/21 12:45 U Methamphetamines Scrn Not Detected (NotDetected) 02/25/21 12:45 U Benzodiazepines Scrn Not Detected (NotDetected) 02/25/21 12:45 Urine Cocaine Screen Not Detected (NotDetected) 02/25/21 12:45 U Marijuana (THC) Screen Detected (NotDetected) H 02/25/21 12:45 Serum Alcohol 180 mg/dL 02/25/21 12:30 Coronavirus (PCR) Not Detected (Not Detectd) 02/25/21 17:14 Allergies Allergy/AdvReac Type Severity Reaction Status Date / Time No Known Allergies Allergy Verified 02/26/21 13:15 Patient Condition at Discharge: Stable Plan - Discharge Summary Discharge Rx Participant: No New Discharge Prescriptions: New Nicotine 14Mg/24Hr Patch [Habitrol] 1 patch TRANSDERM DAILY 30 Days patch Sertraline [Zoloft] 150 mg PO DAILY 30 Days tab Gabapentin [Neurontin] 400 mg PO TID 30 Days cap QUEtiapine [SEROquel] 100 mg PO HS 30 Days tab Discontinued Buprenorphine HCl/Naloxone HCl [Zubsolv 5.7-1.4 mg Tablet Sl] 1 tab SUBLINGUAL BID PRN PRN Reason: OPIOID DEPENDENCE Folic Acid 1 mg PO DAILY tab Gabapentin [Neurontin] 300 mg PO TID 30 Days cap Nicotine Gum (Polacrilex) [Nicorette] 2 mg BUCCAL Q4HR PRN 30 Days PRN Reason: Nicotine Cravings risperiDONE [RisperDAL] 1 mg PO BID 30 Days tab Thiamine [Vitamin B-1] 100 mg PO DAILY tab Discharge Medication List Gabapentin [Neurontin] 400 mg PO TID 30 Days cap 03/02/21 [Rx] Nicotine 14Mg/24Hr Patch [Habitrol] 1 patch TRANSDERM DAILY 30 Days patch 03/02/21 [Rx] QUEtiapine [SEROquel] 100 mg PO HS 30 Days tab 03/02/21 [Rx] Sertraline [Zoloft] 150 mg PO DAILY 30 Days tab 03/02/21 [Rx] Follow up Appointment(s)/Referral(s): [facility] [Outside] - 03/10/21 12:[address] [facility] [Outside] - 03/07/21 3:00 pm (03-07-21 at 3:00 with Ju[facility] Pickens) None,Stated [Primary Care Provider] - 1-2 days Patient Instructions/Handouts: Depression (DC), Methamphetamine Abuse (DC) Activity/Diet/Wound Care/Special Instructions: Activity and diet as tolerated. Avoid the use of street drugs and alcohol. Take all medications as prescribed. When you are in need of refills on your medications please contact your medical provider and/or outpatient psychiatrist to have this done. Please go to scheduled outpatient appointment for aftercare treatment. If symptoms return or become worse, call the crisis line at and/or go to the nearest emergency room for evaluation Discharge Disposition: HOME SELF-CARE
== END 2021-03-02 12:50 | disposition home or self-care (01) | DRG 885 ==
LOC: EC 11:36 → 3MHU 18:55
PROVIDERS: ADMIT Psychiatry & Neurology Psychiatry; ATTEND Psychiatry & Neurology Psychiatry
DX: F33.2 Major depressive disorder, recurrent severe without psychotic features (principal); R45.851 Suicidal ideations; F10.10 Alcohol abuse, uncomplicated; F11.10 Opioid abuse, uncomplicated; F12.10 Cannabis abuse, uncomplicated; F14.10 Cocaine abuse, uncomplicated; F15.10 Other stimulant abuse, uncomplicated; F17.210 Nicotine dependence, cigarettes, uncomplicated; F22 Delusional disorders; F43.23 Adjustment disorder with mixed anxiety and depressed mood; G47.00 Insomnia, unspecified; Z79.899 Other long term (current) drug therapy; Z87.442 Personal history of urinary calculi; Z20.822 Contact with and (suspected) exposure to COVID-19
CPT/HCPCS: 36415; 80053; 80061; 80143; 80179; 80306; 80320; 82075; 83036; 84443; 85025; 87635; 93005; 96372; 99285

== ENCOUNTER 2021-03-10 12:37 | Emergency (ER) | payer OTHER ==
[2021-03-10 12:48] VITALS: BP 117/75; PULSE 99; RESP 18; TEMP 99.4
[2021-03-10] MEDS ORDERED: LORazepam 1 MG TAB PO STA ×2 (13:58→14:32)
--- NOTE | 2021-03-10 16:08 | ED ---
Psych HPI <London Simpson - Last Filed: 03/10/21 18:42> - General Source: patient, family Mode of arrival: ambulatory <Mary Ortiz - Last Filed: 03/10/21 22:21> - General Chief Complaint: Psychiatric Symptoms Stated Complaint: Mental Health Time Seen by Provider: 03/10/21 12:40 - History of Present Illness Initial Comments: Patient is a 30-year-old male with history of polysubstance abuse who presents to the emergency department petitioned by his mom. Mom states that he has been attempting to overdose. He has made suicidal statements at home. Patient reports to me that he has been trying to go to rehab however they refused him because he had cough and congestion. He denies to me that he is suicidal. He admits to drinking this morning. Patient is intoxicated upon original assessment. Petition is on the chart. (Mary Ortiz) - Related Data Previous Rx's Medication Instructions Recorded Gabapentin [Neurontin] 400 mg PO TID 30 Days cap 03/02/21 Nicotine 14Mg/24Hr Patch [Habitrol] 1 patch TRANSDERM DAILY 30 Days 03/02/21 patch QUEtiapine [SEROquel] 100 mg PO HS 30 Days tab 03/02/21 Sertraline [Zoloft] 150 mg PO DAILY 30 Days tab 03/02/21 Allergies Allergy/AdvReac Type Severity Reaction Status Date / Time No Known Allergies Allergy Verified 03/10/21 13:38 Review of Systems ROS Other: All systems not noted in ROS Statement are negative. <London Simpson - Last Filed: 03/10/21 18:42> ROS Other: All systems not noted in ROS Statement are negative. <Mary Ortiz - Last Filed: 03/10/21 22:21> ROS Statement: Those systems with pertinent positive or pertinent negative responses have been documented in the HPI. Past Medical History Past Medical History: No Reported History Additional Past Medical History / Comment(s): kidney stones History of Any Multi-Drug Resistant Organisms: None Reported Past Surgical History: No Surgical Hx Reported Additional Past Surgical History / Comment(s): (L) arm surgery Past Anesthesia/Blood Transfusion Reactions: No Reported Reaction Past Psychological History: No Psychological Hx Reported Smoking Status: Current every day smoker Past Alcohol Use History: Abuse, Daily Past Drug Use History: Cocaine, Heroin, Marijuana, Methamphetamine, Opiates, Prescription Drug Abuse <Mary Ortiz - Last Filed: 03/10/21 22:21> General Exam General appearance: alert, in no apparent distress, other (does not appear intoxicated) Head exam: Present: atraumatic, normocephalic, normal inspection Eye exam: Present: normal appearance, PERRL, EOMI. Absent: scleral icterus, conjunctival injection, periorbital swelling ENT exam: Present: normal exam, mucous membranes moist Neck exam: Present: normal inspection. Absent: tenderness, meningismus, lymphadenopathy Respiratory exam: Present: normal lung sounds bilaterally. Absent: respiratory distress, wheezes, rales, rhonchi, stridor Cardiovascular Exam: Present: regular rate, normal rhythm, normal heart sounds. Absent: systolic murmur, diastolic murmur, rubs, gallop, clicks GI/Abdominal exam: Present: soft, normal bowel sounds. Absent: distended, tenderness, guarding, rebound, rigid Extremities exam: Present: normal inspection, full ROM, normal capillary refill. Absent: tenderness, pedal edema, joint swelling, calf tenderness Back exam: Present: normal inspection Neurological exam: Present: alert, oriented X3, CN II-XII intact Psychiatric exam: Present: normal affect, normal mood Skin exam: Present: warm, dry, intact, normal color. Absent: rash <BertdayanaMary Harper - Last Filed: 03/10/21 22:21> Course Vital Signs 03/10/21 12:40 Temperature 99.4 F Pulse Rate 99 Respiratory 18 Rate Blood Pressure 117/75 O2 Sat by Pulse 96 Oximetry Medical Decision Making <London Simpson - Last Filed: 03/10/21 18:42> <Mary Ortiz - Last Filed: 03/10/21 22:21> - Medical Decision Making Patient was signed out to me pending psychiatric evaluation. He will be medically cleared following sobriety as well as psychiatric evaluation. Patient was evaluated by psychiatry when sober and was deemed that he is stable for discharge home with a safety plan. Follow-up was given to the patient. Patient was therefore discharged home in good condition. (London Simpson) On arrival patient was placed into room 12. history and physical exam is performed. Patient requesting Ativan for anxiety. We did obtain a Covid swab. He is awaiting EPS evaluation which will be performed at 5:00 after the patient is sober. Patient signed out to Dr. Simpson (Mary Ortiz) - Lab Data Lab Results 03/10/21 Range/Units 15:34 Coronavirus (PCR) Not Detected (Not Detectd) Disposition Is patient prescribed a controlled substance at d/c from ED?: No <London Simpson - Last Filed: 03/10/21 18:42> <Mary Ortiz - Last Filed: 03/10/21 22:21> Clinical Impression: Encounter for psychiatric assessment, Acute alcohol intoxication, Polysubstance abuse Disposition: HOME SELF-CARE Condition: Good Instructions (If sedation given, give patient instructions): Abuse of Alcohol (ED) Referrals: None,Stated [Primary Care Provider] - 1-2 days Dariela Nunez MD [STAFF PHYSICIAN] - 1-2 days
== END 2021-03-10 18:53 | disposition home or self-care (01) ==
LOC: EC 12:37
DX: Z04.6 Encounter for general psychiatric examination, requested by authority (principal); F10.129 Alcohol abuse with intoxication, unspecified; F19.129 Other psychoactive substance abuse with intoxication, unspecified; F17.200 Nicotine dependence, unspecified, uncomplicated; F12.90 Cannabis use, unspecified, uncomplicated; Z87.442 Personal history of urinary calculi; Z20.822 Contact with and (suspected) exposure to COVID-19; Y90.9 Presence of alcohol in blood, level not specified
CPT/HCPCS: 82075; 87635; 99284

== ENCOUNTER 2021-07-12 15:38 | Emergency (ER) | payer OTHER ==
[2021-07-12 15:50] VITALS: BP 132/74; PULSE 98; RESP 18; TEMP 98.4
[2021-07-12] MEDS ORDERED: LIDOCAINE/EPINEPHR/TETRACAINE 5 ML BOTTLE TOPICAL ONE (16:28)
--- NOTE | 2021-07-12 16:43 | ED ---
ENT HPI - General Chief complaint: ENT Stated complaint: Cyst on ear, Throat Pain and swelling Time Seen by Provider: 07/12/21 16:15 Source: patient, RN notes reviewed Mode of arrival: ambulatory Limitations: no limitations - History of Present Illness Initial comments: This is a 31-year-old male who presents to the emergency department for a sore throat and a cyst behind the left ear. Patient states that he has a history of sebaceous cysts, and the one behind the left ear has been present for about 3 days. He states that he did try squeezing this and was able to express some white material, but states he was unable to get it all. There is a cyst behind his right ear, however he has not tried squeezing this. 3 days ago, he also began to develop a sore throat. Denies any shortness of breath, but states that it is painful to talk and swallow. Denies any coughing. States that last night he felt hot, however he did not check his temperature. MD complaint: sore throat Worsens with: swallowing Associated Symptoms: pain with swallowing, sore throat - Related Data Previous Rx's Medication Instructions Recorded Gabapentin [Neurontin] 400 mg PO TID 30 Days cap 03/02/21 Nicotine 14Mg/24Hr Patch [Habitrol] 1 patch TRANSDERM DAILY 30 Days 03/02/21 patch QUEtiapine [SEROquel] 100 mg PO HS 30 Days tab 03/02/21 Sertraline [Zoloft] 150 mg PO DAILY 30 Days tab 03/02/21 Cephalexin [Keflex] 1,000 mg PO Q12HR 7 Days #28 cap 07/12/21 predniSONE 50 mg PO QAM #5 tablet 07/12/21 Allergies Allergy/AdvReac Type Severity Reaction Status Date / Time No Known Allergies Allergy Verified 07/12/21 15:51 Review of Systems ROS Statement: Those systems with pertinent positive or pertinent negative responses have been documented in the HPI. ROS Other: All systems not noted in ROS Statement are negative. Constitutional: Denies: fever, chills ENT: Reports: throat pain. Denies: congestion Respiratory: Denies: cough, dyspnea Cardiovascular: Denies: chest pain Gastrointestinal: Denies: abdominal pain, nausea, vomiting, diarrhea Genitourinary: Denies: urgency, dysuria Musculoskeletal: Denies: back pain Skin: Denies: rash Neurological: Denies: headache Past Medical History Past Medical History: No Reported History Additional Past Medical History / Comment(s): kidney stones History of Any Multi-Drug Resistant Organisms: None Reported Past Surgical History: No Surgical Hx Reported Additional Past Surgical History / Comment(s): (L) arm surgery Past Anesthesia/Blood Transfusion Reactions: No Reported Reaction Past Psychological History: No Psychological Hx Reported Smoking Status: Current every day smoker Past Alcohol Use History: None Reported Past Drug Use History: None Reported General Exam Limitations: no limitations General appearance: alert, in no apparent distress Head exam: Present: atraumatic, normocephalic, normal inspection Expanded Throat exam: tonsillar erythema, tonsillomegaly (3+), tonsillar exudate Neck exam: Present: normal inspection. Absent: tenderness, meningismus, lymphadenopathy Respiratory exam: Present: normal lung sounds bilaterally. Absent: respiratory distress, wheezes, rales, rhonchi, stridor Cardiovascular Exam: Present: regular rate, normal rhythm, normal heart sounds. Absent: systolic murmur, diastolic murmur, rubs, gallop, clicks Neurological exam: Present: alert, oriented X3, CN II-XII intact Psychiatric exam: Present: normal affect, normal mood Skin exam: Present: warm, dry, intact, normal color, other (Sebaceous cyst posterior to the left ear, the cyst is erythematous with a pinpoint white center. Sebaceous cyst posterior to the right ear without evidence of erythema or a white center.). Absent: rash Course Vital Signs 07/12/21 15:49 Temperature 98.4 F Pulse Rate 98 Respiratory 18 Rate Blood Pressure 132/74 O2 Sat by Pulse 98 Oximetry Procedures - Incision & Drainage Consent Obtained: verbal consent Indication: Sebaceous cyst Site: other (posterior aspect of left ear) Anesthetic Used: lidocaine 1% (LET, no local infiltration) I&D Cleaning Method: Alcohol Wipe Sterile Field Used?: Yes Scalpel Used: #11 Needle Aspiration Performed?: No Irrigation Performed?: Yes I&D Drainage Obtained: Other (sebum and keratin) Culture Obtained?: Yes Medical Decision Making - Medical Decision Making This is a 31-year-old male who presents to the emergency department for a sore throat and a cyst behind the bilateral ears. Patient did have tonsillar erythema, tonsillomegaly, and tonsillar exudates on exam. Rapid stress test obtained. Covid and influenza testing obtained as well given the symptoms, all of which were negative. The cyst behind the left ear was able to be lanced as it has a pinpoint white center, is erythematous, and has evidence of recent drainage. Discussed with the patient that the cyst behind the right ear however cannot be drained today, as it is still too deep within the skin. Thick white material expressed from the cyst, consistent with a combination of keratin and sebum. He is advised to apply hot compresses to both cysts. Rx for Keflex sent to the patient's pharmacy to be taken for 7 days. Decadron administered in the emergency department for throat pain and swelling. Patient discharged on a course of prednisone for additional relief. He is advised to avoid taking all other anti-inflammatories when taking this. Return precautions reviewed in depth, the patient is instructed to return to the emergency department with any new, worsening, or concerning symptoms. Patient verbalized understanding. This case was discussed in detail with the attending ED physician. Presentation, findings, and treatment plan discussed in detail as well. - Lab Data Lab Results 07/12/21 07/12/21 07/12/21 Range/Units 16:41 16:41 16:41 Coronavirus (PCR) Not Detected (Not Detectd) Influenza Type A RNA Not Detected (Not Detectd) Influenza Type B (PCR) Not Detected (Not Detectd) Group A Strep Rapid Negative (Negative) Disposition Clinical Impression: Sebaceous cyst of ear Disposition: HOME SELF-CARE Instructions (If sedation given, give patient instructions): Epidermal Inclusion Cysts (ED), Cyst (ED) Additional Instructions: Return to the emergency department with any new, worsening, or concerning symptoms. Take the antibiotic as prescribed for 7 days. Take the prednisone as prescribed for 5 days. Do not take any other anti-inflammatories while taking the prednisone. Prescriptions: Cephalexin [Keflex] 1,000 mg PO Q12HR 7 Days #28 cap predniSONE 50 mg PO QAM #5 tablet Is patient prescribed a controlled substance at d/c from ED?: No Referrals: None,Stated [Primary Care Provider] - 1-2 days
[2021-07-12] MEDS ORDERED: dexAMETHasone 4 MG TAB PO STA (17:31)
== END 2021-07-12 18:14 | disposition home or self-care (01) ==
LOC: EC 15:38
DX: L72.3 Sebaceous cyst (principal); F17.200 Nicotine dependence, unspecified, uncomplicated; Z20.822 Contact with and (suspected) exposure to COVID-19
CPT/HCPCS: 87070; 87205; 87081; 87430; 87077; 87186; 87502; 87635; 10060; 99283; J8540

== ENCOUNTER 2023-09-23 10:51 | Emergency (ER) | payer OTHER ==
[2023-09-23 10:54] VITALS: RESP 16
--- NOTE | 2023-09-23 12:20 | US ---
EXAMINATION TYPE: US venous doppler duplex LE LT DATE OF EXAM: 09/23/2023 12:08 PM COMPARISON: NONE CLINICAL INDICATION: Male, 33 years old with history of pain; Left leg pain SIDE PERFORMED: Left TECHNIQUE: The lower extremity deep venous system is examined utilizing real time linear array sonog ralph with graded compression, doppler sonography and color-flow sonography. VESSELS IMAGED: Common Femoral Vein Deep Femoral Vein Greater Saphenous Vein * Femoral Vein Popliteal Vein Small Saphenous Vein * Proximal Calf Veins (* superficial vessels) Left Leg: Positive for DVT EIV through proximal calf veins IMPRESSION: DVT as noted above.
--- NOTE | 2023-09-23 12:32 | ED ---
Extremity Problem HPI - General Chief complaint: Extremity Problem,Nontraumatic Stated complaint: L leg swelling Time Seen by Provider: 09/23/23 10:56 Source: patient, RN notes reviewed Mode of arrival: ambulatory Limitations: no limitations - History of Present Illness Initial comments: 33-year-old male presents emergency department chief complaint of left leg pain and swelling. He states it has been present for nearly 3 to 4 weeks. He was seen in urgent care and was told he pulled a muscle. Patient states he still continues to have swelling discomfort in his calf. Patient states is mild redness no paresthesias denies any trauma no rashes denies any abdominal pain denies any chest pain shortness of breath exertional dyspnea. - Related Data Previous Rx's Medication Instructions Recorded Gabapentin [Neurontin] 400 mg PO TID 30 Days cap 03/02/21 Nicotine 14Mg/24Hr Patch [Habitrol] 1 patch TRANSDERM DAILY 30 Days 03/02/21 patch QUEtiapine [SEROquel] 100 mg PO HS 30 Days tab 03/02/21 Sertraline [Zoloft] 150 mg PO DAILY 30 Days tab 03/02/21 Cephalexin [Keflex] 1,000 mg PO Q12HR 7 Days #28 cap 07/12/21 predniSONE 50 mg PO QAM #5 tablet 07/12/21 Apixaban [Eliquis Starter Pack 0 mg PO DIRECTED 30 Days #1 09/23/23 (for VTE)] packet Allergies Allergy/AdvReac Type Severity Reaction Status Date / Time No Known Allergies Allergy Verified 07/12/21 15:51 Review of Systems ROS Statement: Those systems with pertinent positive or pertinent negative responses have been documented in the HPI. ROS Other: All systems not noted in ROS Statement are negative. Past Medical History Past Medical History: No Reported History Additional Past Medical History / Comment(s): kidney stones History of Any Multi-Drug Resistant Organisms: None Reported Past Surgical History: No Surgical Hx Reported Additional Past Surgical History / Comment(s): (L) arm surgery Past Anesthesia/Blood Transfusion Reactions: No Reported Reaction Past Psychological History: No Psychological Hx Reported Smoking Status: Current every day smoker Past Alcohol Use History: None Reported Past Drug Use History: None Reported, Cocaine, Methamphetamine General Exam Limitations: no limitations General appearance: alert, in no apparent distress Head exam: Present: atraumatic, normocephalic, normal inspection Eye exam: Present: normal appearance, PERRL, EOMI. Absent: scleral icterus, conjunctival injection, periorbital swelling Respiratory exam: Present: normal lung sounds bilaterally. Absent: respiratory distress, wheezes, rales, rhonchi, stridor Cardiovascular Exam: Present: regular rate, normal rhythm, normal heart sounds. Absent: systolic murmur, diastolic murmur, rubs, gallop, clicks Extremities exam: Present: other (Left leg edema noted, very equal pedal pulses there is mild calf tenderness noted) Course Vital Signs 09/23/23 10:51 Temperature 98 F Pulse Rate 79 Respiratory 16 Rate Blood Pressure 139/97 O2 Sat by Pulse 98 Oximetry Medical Decision Making - Medical Decision Making Was pt. sent in by a medical professional or institution (, [facility], [employer], urgent care, hospital, or prison...) When possible be specific @ -No Did you speak to anyone other than the patient for history (EMS, parent, family, police, friend...)? What history was obtained from this source @ -No Did you review nursing and triage notes (agree or disagree)? Why? @ -I reviewed and agree with nursing and triage notes Were old charts reviewed (outside hosp., previous admission, EMS record, old EKG, old radiological studies, urgent care reports/EKG's, prison records)? Report findings @ -No old charts were reviewed Differential Diagnosis (chest pain, altered mental status, abdominal pain women, abdominal pain men, vaginal bleeding, weakness, fever, dyspnea, syncope, headache, dizziness, GI bleed, back pain, seizure, CVA, palpatations, mental health, musculoskeletal)? @ -Leg edema, DVT, superficial thrombophlebitis EKG interpreted by me (3pts min.). @ -None X-rays interpreted by me (1pt min.). @ -None done CT interpreted by me (1pt min.). @ -None done U/S interpreted by me (1pt. min.). @Ultrasound left leg venous Doppler showing evidence of DVT What testing was considered but not performed or refused? (CT, X-rays, U/S, labs)? Why? @ -None What meds were considered but not given or refused? Why? @ -None Did you discuss the management of the patient with other professionals (professionals i.e. Dr., PA, [employer], lab, RT, psych nurse, social services technician, card setter, teacher, tank officer, machine adjuster leader case trim)? Give summary @ -No Was smoking cessation discussed for >3mins.? @ -No Was critical care preformed (if so, how long)? @ -[35 minutes Were there social determinants of health that impacted care today? How? (Homelessness, low income, unemployed, alcoholism, drug addiction, transportation, low edu. Level, literacy, decrease access to med. care, usp, rehab)? @ -No Was there de-escalation of care discussed even if they declined (Discuss DNR or withdrawal of care, Hospice)? DNR status @ -No What co-morbidities impacted this encounter? (DM, HTN, Smoking, COPD, CAD, Cancer, CVA, ARF, Chemo, Hep., AIDS, mental health diagnosis, sleep apnea, morbid obesity)? @ -None Was patient admitted / discharged? Hospital course, mention meds given and route, prescriptions, significant lab abnormalities, going to OR and other pertinent info. @ -Discharge patient presented for left leg pain and swelling. Patient did have notable neurovascular intact. Patient had ultrasound performed showing evidence of DVT of the left leg he was immediately started on Eliquis. He has no chest pain or shortness of breath. Patient was written prescription for 1 month of Eliquis until he can have close follow-up we did discuss strict return parameters. Undiagnosed new problem with uncertain prognosis? @ -No Drug Therapy requiring intensive monitoring for toxicity (Heparin, Nitro, Insulin, Cardizem)? @ -No Were any procedures done? @ -No Diagnosis/symptom? @ -Left leg DVT Acute, or Chronic, or Acute on Chronic? @ -Acute Uncomplicated (without systemic symptoms) or Complicated (systemic symptoms)? @Complicated Side effects of treatment? @ -No Exacerbation, Progression, or Severe Exacerbation? @ -No Poses a threat to life or bodily function? How? (Chest pain, [place], [place], pneumonia, PE, COPD, DKA, ARF, appy, cholecystitis, CVA, Diverticulitis, Homicidal, Suicidal, threat to staff... and all critical care pts) @ -Yes DVT may lead to PE Critical Care Time Critical Care Time: Yes Total Critical Care Time: 35 Disposition Clinical Impression: Left leg DVT Disposition: HOME SELF-CARE Condition: Stable Instructions (If sedation given, give patient instructions): Deep Vein Thrombosis (ED) Additional Instructions: Please return to the Emergency Department if symptoms worsen or any other concerns. Prescriptions: Apixaban [Eliquis Starter Pack (for VTE)] 0 mg PO DIRECTED 30 Days #1 packet Is patient prescribed a controlled substance at d/c from ED?: No Referrals: None,Stated [Primary Care Provider] - 1-2 days Alexandre Barrios [STAFF PHYSICIAN] - 1-2 days Chalino Mayo DO [STAFF PHYSICIAN] - 1-2 days Time of Disposition: 12:32
[2023-09-23] MEDS: APIXABAN 5 MG TAB PO STA (13:11)
[2023-09-23 13:15] VITALS: BP 126/85; PULSE 99; TEMP 98
[2023-09-23] MEDS ORDERED: APIXABAN 5 MG TAB PO SCH (21:00)
== END 2023-09-23 13:14 | disposition home or self-care (01) ==
LOC: EC 10:51
DX: I82.402 Acute embolism and thrombosis of unspecified deep veins of left lower extremity (principal); F17.200 Nicotine dependence, unspecified, uncomplicated
CPT/HCPCS: 99291

== ENCOUNTER 2023-10-06 14:09 | Inpatient (IN) | payer OTHER ==
--- NOTE | 2023-10-06 15:37 | CT ---
EXAMINATION TYPE: CT angio chest DATE OF EXAM: 10/06/2023 COMPARISON: HISTORY: nany/ +dvt in leg CT DLP: 430.2 mGycm CONTRAST: CT chest with contrast and 3D reconstruction with MIP imaging is performed with IV Contrast, patient injected with 100 mL of Isovue 370. Contrast-enhanced CT of the chest was performed through the course of the pulmonary arteries with deena g and mediastinal window settings submitted. 3D reconstruction with MIP imaging was also performed. PULMONARY ARTERIES: None there is a filling defect noted within the distal right pulmonary artery as well as a couple of the right upper lobe and right lower lobe regions. No evidence for sagittal compo nent. No left-sided pulmonary embolism identified at this time. No evidence of right heart strain. OMID NGS: The lungs are clear and free of infiltrate. No evidence for atelectasis. No pulmonary nodule o r mass is detected. No pleural effusion. MEDIASTINUM: Thoracic aorta is of normal caliber. The heart is not enlarged. No evidence for medias tinal mass. No mediastinal lymph nodes greater than 1cm. HILAR STRUCTURES: No evidence for mass. No hilar lymph nodes greater than 1 cm. UPPER ABDOMEN: No significant abnormality is seen. IMPRESSION: 1. Findings compatible with right-sided pulmonary embolism.
--- NOTE | 2023-10-06 17:38 | ED ---
SOB HPI - General Chief Complaint: Shortness of Breath Stated Complaint: L leg blood clot, SOB Time Seen by Provider: 10/06/23 14:24 Source: patient, RN notes reviewed Mode of arrival: ambulatory Limitations: no limitations - History of Present Illness Initial Comments: This is a 33-year-old male who was diagnosed with a left DVT lower extremity approximately 1 to 2 weeks ago who is on anticoagulants but did missed this morning's dose who states he went outside to smoke a cigarette and felt very short of breath and has some brief left-sided chest pain. He is aware of the risk of pulmonary embolism and is here for evaluation. He states the pain is gone now. MD Complaint: shortness of breath, chest pain - Related Data Home Medications Medication Instructions Recorded Confirmed Apixaban [Eliquis Starter Pack See Taper PO DIRECTED 10/06/23 10/06/23 (for VTE)] Desvenlafaxine Succinate [Pristiq 50 mg PO DAILY 10/06/23 10/06/23 ER] Levothyroxine Sodium [Synthroid] 75 mcg PO DAILY 10/06/23 10/06/23 [place] Carbonate [[place] 600 mg PO PC-SUPPER 10/06/23 10/06/23 Carbonate ER] Mirtazapine [Remeron] 15 mg PO HS 10/06/23 10/06/23 Nicotine Polacrilex [Nicotine Gum] 4 mg BC QID 10/06/23 10/06/23 Sublocade 300mg/1.5ml 300 mg SQ Q28D 10/06/23 10/06/23 Topiramate [Topamax] 50 mg PO DAILY 10/06/23 10/06/23 ondansetron HCL [Zofran] 8 mg PO DAILY PRN 10/06/23 10/06/23 Allergies Allergy/AdvReac Type Severity Reaction Status Date / Time No Known Allergies Allergy Verified 10/06/23 18:18 Review of Systems ROS Statement: Those systems with pertinent positive or pertinent negative responses have been documented in the HPI. ROS Other: All systems not noted in ROS Statement are negative. Past Medical History Past Medical History: No Reported History Additional Past Medical History / Comment(s): kidney stones, DVT History of Any Multi-Drug Resistant Organisms: None Reported Past Surgical History: No Surgical Hx Reported Additional Past Surgical History / Comment(s): (L) arm surgery Past Anesthesia/Blood Transfusion Reactions: No Reported Reaction Past Psychological History: No Psychological Hx Reported Smoking Status: Current every day smoker Past Alcohol Use History: None Reported Past Drug Use History: None Reported, Cocaine, Methamphetamine General Exam - General Exam Comments Initial Comments: This is a well-developed well-nourished awake alert oriented x 4 male Limitations: no limitations General appearance: alert, in no apparent distress Head exam: Present: atraumatic, normocephalic, normal inspection Eye exam: Present: normal appearance, PERRL, EOMI. Absent: scleral icterus, conjunctival injection, periorbital swelling ENT exam: Present: normal exam, mucous membranes moist Neck exam: Present: normal inspection, full ROM, other (No JVD or bruits). Absent: tenderness, meningismus, lymphadenopathy Respiratory exam: Present: normal lung sounds bilaterally. Absent: respiratory distress, wheezes, rales, rhonchi, stridor, chest wall tenderness Cardiovascular Exam: Present: regular rate, normal rhythm, normal heart sounds. Absent: systolic murmur, diastolic murmur, rubs, gallop, clicks GI/Abdominal exam: Present: soft, normal bowel sounds. Absent: distended, ten derness, guarding, rebound, rigid Extremities exam: Present: full ROM, normal capillary refill, other (Extremity demonstrates increased diameter of the calf on the left compared to the right currently no discomfort). Absent: tenderness, pedal edema, joint swelling, calf tenderness Back exam: Present: normal inspection Neurological exam: Present: alert, oriented X3, CN II-XII intact Psychiatric exam: Present: normal affect, normal mood Skin exam: Present: warm, dry, intact, normal color. Absent: rash Course Vital Signs 10/06/23 10/06/23 10/06/23 14:11 16:07 18:14 Temperature 97.7 F 97.8 F Pulse Rate 74 98 66 Respiratory 20 18 18 Rate Blood Pressure 122/78 110/71 118/80 O2 Sat by Pulse 98 98 95 Oximetry Medical Decision Making - Medical Decision Making I did discuss the findings with the patient and his mother who was present patient does have evidence of pulmonary embolism on the right lung arnold on my interpretation. I did discuss the case previously with Dr. Willis and patient will be admitted placed on IV heparin. Was pt. sent in by a medical professional or institution (Dr., PA, COPY ROOM TECHNICIAN, urgent care, hospital, or retirement...) When possible be specific @ -No Did you speak to anyone other than the patient for history (EMS, parent, family, police, friend...)? What history was obtained from this source @ -His mother Did you review nursing and triage notes (agree or disagree)? Why? @ -I reviewed and agree with nursing and triage notes Were old charts reviewed (outside hosp., previous admission, EMS record, old EKG, old radiological studies, urgent care reports/EKG's, retirement records)? Report findings @ -No old charts were reviewed Differential Diagnosis (chest pain, altered mental status, abdominal pain women, abdominal pain men, vaginal bleeding, weakness, fever, dyspnea, syncope, headache, dizziness, GI bleed, back pain, seizure, CVA, palpatations, mental health, musculoskeletal)? @ -Pain, pulmonary embolism EKG interpreted by me (3pts min.). @ -As above EKG interpreted by me sinus bradycardia with a short MO interval the rate was 56 parable 118 QRS duration 91 QT/QTc 423/[address]-T wave changes seen X-rays interpreted by me (1pt min.). @ -None done CT interpreted by me (1pt min.). @ -CT scan of the chest with IV contrast/angiography consistent with pulmonary embolism right upper and right lower lobe right middle lobe. Definitive right heart strain this was interpreted by me U/S interpreted by me (1pt. min.). @ -None done What testing was considered but not performed or refused? (CT, X-rays, U/S, labs)? Why? @ -None What meds were considered but not given or refused? Why? @ -None Did you discuss the management of the patient with other professionals (professionals i.e. , PA, COPY ROOM TECHNICIAN, lab, RT, psych nurse, social economist, unleavened dough mixer, teacher, youth officer, vocational case manager)? Give summary @ -Willis Was smoking cessation discussed for >3mins.? @ -No Was critical care preformed (if so, how long)? @ -31 Minutes Were there social determinants of health that impacted care today? How? (Homelessness, low income, unemployed, alcoholism, drug addiction, transportation, low edu. Level, literacy, decrease access to med. care, detention, rehab)? @ -No Was there de-escalation of care discussed even if they declined (Discuss DNR or withdrawal of care, Hospice)? DNR status @ -No What co-morbidities impacted this encounter? (DM, HTN, Smoking, COPD, CAD, Cancer, CVA, ARF, Chemo, Hep., AIDS, mental health diagnosis, sleep apnea, morbid obesity)? @ -None Was patient admitted / discharged? Hospital course, mention meds given and route, prescriptions, significant lab abnormalities, going to OR and other pertinent info. @ -Hospital course Undiagnosed new problem with uncertain prognosis? @ -No Drug Therapy requiring intensive monitoring for toxicity (Heparin, Nitro, Insulin, Cardizem)? @ -No Were any procedures done? @ -No Diagnosis/symptom? @ -Pulmonary Embolism, DVT Acute, or Chronic, or Acute on Chronic? @ -Acute Uncomplicated (without systemic symptoms) or Complicated (systemic symptoms)? @ -Stated Side effects of treatment? @ -No Exacerbation, Progression, or Severe Exacerbation? @ -No Poses a threat to life or bodily function? How? (Chest pain, [place], [place], pneumonia, PE, COPD, DKA, ARF, appy, cholecystitis, CVA, Diverticulitis, Homicidal, Suicidal, threat to staff... and all critical care pts) @ -Potential - Lab Data Result diagrams: 10/06/23 17:45 10/06/23 17:45 Lab Results 10/06/23 10/06/23 10/06/23 Range/Units 17:45 17:45 17:45 WBC 7.4 (3.8-10.6) k/uL RBC 5.22 (4.30-5.90) m/uL Hgb 14.3 (13.0-17.5) gm/dL Hct 43.6 (39.0-53.0) % MCV 83.5 (80.0-100.0) fL MCH 27.5 (25.0-35.0) pg MCHC 32.9 (31.0-37.0) g/dL RDW 12.6 (11.5-15.5) % Plt Count 199 (150-450) k/uL MPV 8.9 Neutrophils % 71 % Lymphocytes % 20 % Monocytes % 5 % Eosinophils % 2 % Basophils % 0 % Neutrophils # 5.3 (1.3-7.7) k/uL Lymphocytes # 1.5 (1.0-4.8) k/uL Monocytes # 0.4 (0-1.0) k/uL Eosinophils # 0.2 (0-0.7) k/uL Basophils # 0.0 (0-0.2) k/uL PT 10.3 (10.0-12.5) sec INR 0.9 (<1.2) APTT 23.2 (22.0-30.0) sec Sodium 138 (137-145) mmol/L Potassium 4.5 (3.5-5.1) mmol/L Chloride 103 (98-107) mmol/L Carbon Dioxide 31 H (22-30) mmol/L Anion Gap 4 mmol/L BUN 11 (9-20) mg/dL Creatinine 0.71 (0.66-1.25) mg/dL Est GFR (CKD-EPI)AfAm >90 (>60 ml/min/1.73 sqM) Est GFR (CKD-EPI)NonAf >90 (>60 ml/min/1.73 sqM) Glucose 104 H (74-99) mg/dL Calcium 9.3 (8.4-10.2) mg/dL Total Bilirubin 0.4 (0.2-1.3) mg/dL AST 23 (17-59) U/L ALT 18 (4-49) U/L Alkaline Phosphatase 108 (38-126) U/L Total Protein 7.1 (6.3-8.2) g/dL Albumin 4.4 (3.5-5.0) g/dL Critical Care Time Critical Care Time: Yes Total Critical Care Time: 31 Disposition Clinical Impression: Pulmonary embolism, DVT (deep venous thrombosis), Chest pain Disposition: ADMITTED IP TO THIS HOSP Condition: Fair Referrals: Lana Tomas MD [Primary Care Provider] - 1-2 days Time of Disposition: 18:00 Decision Date: 10/06/23 Decision Time: 18:00
[2023-10-06 17:58] LABS: Basophils % (A) 0 %; Eosinophils # (A) 0.2 k/uL (0-0.7); Eosinophils % (A) 2 %; HCT 43.6 % (39.0-53.0); HGB 14.3 gm/dL (13.0-17.5); Lymphocytes # (A) 1.5 k/uL (1.0-4.8); Lymphocytes % (A) 20 %; MCH 27.5 pg (25.0-35.0); MCHC 32.9 g/dL (31.0-37.0); MCV 83.5 fL (80.0-100.0); Mean Platelet Volume 8.9; Monocytes # (A) 0.4 k/uL (0-1.0); Monocytes % (A) 5 %; Neutrophils # (A) 5.3 k/uL (1.3-7.7); Neutrophils % (A) 71 %; Platelet Count 199 k/uL (150-450); RBC 5.22 m/uL (4.30-5.90); RDW 12.6 % (11.5-15.5); WBC 7.4 k/uL (3.8-10.6)
[2023-10-06 18:11] LABS: ALT 18 U/L (4-49); AST 23 U/L (17-59); African American GFR (CKD) >90 (>60 ml/min/1.73 sqM); Albumin 4.4 g/dL (3.5-5.0); Alkaline Phosphatase 108 U/L (38-126); Anion Gap 4 mmol/L; Blood Urea Nitrogen 11 mg/dL (9-20); Calcium 9.3 mg/dL (8.4-10.2); Carbon Dioxide 31 mmol/L (22-30); Chloride 103 mmol/L (98-107); Glucose 104 mg/dL (74-99); Non-African American GFR(CKD) >90 (>60 ml/min/1.73 sqM); Potassium 4.5 mmol/L (3.5-5.1); Sodium 138 mmol/L (137-145); Total Bilirubin 0.4 mg/dL (0.2-1.3); Total Protein 7.1 g/dL (6.3-8.2)
[2023-10-06 18:13] LABS: INR 0.9 (<1.2); Partial Thromboplastin Time 23.2 sec (22.0-30.0); Prothrombin Time 10.3 sec (10.0-12.5)
[2023-10-06] MEDS ORDERED: HEPARIN SODIUM 1,000 UN/ML (10ML VL) IV PRN (18:18)
[2023-10-06] MEDS ORDERED: ONDANSETRON 4 MG/2 ML VIAL IVP PRN (18:46)
[2023-10-06] MEDS ORDERED: NALOXONE 0.4 MG/ML 1 ML VIAL IV PRN (18:46)
[2023-10-06] MEDS ORDERED: ACETAMINOPHEN TAB 325 MG TAB PO PRN (18:46)
[2023-10-06 19:09] LABS: Partial Thromboplastin Time 24.2 sec (22.0-30.0); Prothrombin Time 10.6 sec (10.0-12.5)
[2023-10-06] MEDS: HEPARIN SOD,PORK IN 0.45% NACL 25,000 UNIT in 0.45% NACL 1 250ML.BAG IV SCH (19:09)
[2023-10-06] MEDS: HEPARIN SODIUM 1,000 UN/ML (10ML VL) IV ONE (19:10)
[2023-10-06] MEDS: SODIUM CHLORIDE 0.9% 1,000 ML IV SCH (19:10)
[2023-10-06] MEDS: MIRTAZAPINE 15 MG TAB PO SCH (20:47)
[2023-10-06] MEDS: NICOTINE GUM (POLACRILEX) 2 MG GUM BUCCAL SCH (21:14)
[2023-10-07] MEDS: LEVOTHYROXINE 75 MCG TAB PO SCH (06:45)
[2023-10-07] MEDS: TOPIRAMATE 25 MG TAB PO SCH (08:29)
[2023-10-07] MEDS: DESVENLAFAXINE SUCCINATE 50 MG TAB.ER.24H PO SCH (10:06)
--- NOTE | 2023-10-07 12:27 | P.CNPUL ---
History of Present Illness Consult date: 10/07/23 Requesting physician: Ashlee Willis Reason for consult: dyspnea, chest pain, hypoxemia, pulmonary embolism, abnormal CXR/CT Chief complaint: Shortness of breath and chest pain. History of present illness: Pulmonary consult dated October 07, 2023. 33-year-old male who was in the hospital back on September 22, for left leg swelling and pain. At that time, he was found to have a left-sided DVT. He was placed on Eliquis, and discharged. More recently, he comes back into the emergency room on October 05, complaining of shortness of breath, left-sided chest pain. A CT angiogram was positive for right-sided pulmonary embolism. The patient states that he had been taking his Eliquis as prescribed. The patient states that he did not take his morning Eliquis dose, the day that he came into the emergency room. He apparently was smoking a cigarette, and did not take it that day. The patient has a history of hypothyroidism, kidney stones, and a previous history of IV drug abuse with heroin. The patient does continue to smoke cigarettes. Current labs include a completely normal CBC, and a PTT of 65.1. Sodium 138, potassium 4.5, chlorides 103, CO2 31, BUN 11, creatinine 0.71. Glucose was 104. The rest of the labs look okay. The patient is currently on room air. The patient is receiving IV heparin. Review of Systems REVIEW OF SYSTEMS: CONSTITUTIONAL: [Negative.] NEUROLOGIC: [ Negative.] HEENT: [ Negative.] CARDIAC: Chest pain. PULMONARY: Shortness of breath. GI: [Negative.] : [Negative.] RHEUMATOLOGIC: [ Negative.] IMMUNOLOGIC: [ Negative.] ENDOCRINE: [Negative. ] DERMATOLOGIC: [Negative.] Past Medical History Past Medical History: No Reported History Additional Past Medical History / Comment(s): kidney stones, DVT History of Any Multi-Drug Resistant Organisms: None Reported Past Surgical History: No Surgical Hx Reported Additional Past Surgical History / Comment(s): (L) arm surgery Past Anesthesia/Blood Transfusion Reactions: No Reported Reaction Past Psychological History: No Psychological Hx Reported Smoking Status: Current every day smoker Past Alcohol Use History: None Reported Additional Past Alcohol Use History / Comment(s): pt reports that he has been drinking every day. Past Drug Use History: None Reported, Cocaine, Methamphetamine Medications and Allergies Home Medications Medication Instructions Recorded Confirmed Type Apixaban [Eliquis Starter Pack See Taper PO DIRECTED 10/06/23 10/06/23 History (for VTE)] Desvenlafaxine Succinate [Pristiq 50 mg PO DAILY 10/06/23 10/06/23 History ER] Levothyroxine Sodium [Synthroid] 75 mcg PO DAILY 10/06/23 10/06/23 History [place] Carbonate [[place] 600 mg PO PC-SUPPER 10/06/23 10/06/23 History Carbonate ER] Mirtazapine [Remeron] 15 mg PO HS 10/06/23 10/06/23 History Nicotine Polacrilex [Nicotine Gum] 4 mg BC QID 10/06/23 10/06/23 History Sublocade 300mg/1.5ml 300 mg SQ Q28D 10/06/23 10/06/23 History Topiramate [Topamax] 50 mg PO DAILY 10/06/23 10/06/23 History ondansetron HCL [Zofran] 8 mg PO DAILY PRN 10/06/23 10/06/23 History Allergies Allergy/AdvReac Type Severity Reaction Status Date / Time No Known Allergies Allergy Verified 10/06/23 18:18 Physical Exam Osteopathic Statement: *. No significant issues noted on an osteopathic structural exam other than those noted in the History and Physical/Consult. Vitals: Vital Signs Temp Pulse Pulse Resp BP BP Pulse Ox 10/07/23 12:00 98.1 F 90 16 125/87 98 10/07/23 08:00 98.8 F 70 18 118/80 98 10/07/23 04:00 98.2 F 57 L 18 101/60 95 10/07/23 02:00 70 17 10/07/23 00:00 97.9 F 58 L 18 112/69 96 10/06/23 20:56 81 18 10/06/23 20:54 98.1 F 81 18 125/85 96 10/06/23 18:14 97.8 F 66 18 118/80 95 10/06/23 16:07 98 18 110/71 98 10/06/23 14:11 97.7 F 74 20 122/78 98 Intake and Output 10/06/23 10/07/23 10/07/23 22:59 06:59 14:59 Intake Total 222.719 44.037 Balance 222.719 44.037 Intake: Intake, IV Titration 222.719 44.037 Amount Heparin Sod,Pork in 0.45% 222.719 44.037 NaCl 25,000 unit In 0.45 % NaCl 1 250ml.bag @ 18 UNITS/KG/HR 20.085 mls/hr IV .[id number] [facility] Rx#: [id number] Other: Voiding Method Toilet Toilet Toilet # Voids 2 2 # Bowel Movements 2 Weight 111.584 kg 109.7 kg No acute distress, oriented 3. Currently on room air. Saturations are 98%. HEENT examination is grossly unremarkable. Mucous membranes are moist. No oral lesions. Neck supple. Full range of motion. No adenopathy thyromegaly or neck vein distention. Cardiovascular examination reveals regular rhythm rate. S1-S2 normal. No S3 or S4. No discernible murmur noted. Heart rate 90 bpm. Lungs reveal clear breath sounds. Breath sounds are equal bilaterally. No adventitious lung sounds including wheezes rhonchi or crackles. Abdomen soft bowel sounds are heard. No masses or tenderness. Extremities are intact. No cyanosis clubbing or edema. Skin is without rash or lesion. Neurologic examination is brief but nonfocal. Results - Laboratory Findings CBC and BMP: 10/06/23 17:45 10/06/23 17:45 PT/INR, D-dimer PT 10.6 sec (10.0-12.5) 10/06/23 18:38 INR 1.0 (<1.2) 10/06/23 18:38 Abnormal lab findings: Abnormal Labs 10/06/23 10/07/23 10/07/23 17:45 01:31 07:30 APTT 91.9 H 65.1 H Carbon Dioxide 31 H Glucose 104 H - Diagnostic Findings Chest x-ray: image reviewed CT scan - chest: image reviewed Assessment and Plan Assessment: Acute pulmonary embolism, secondary to previous recent diagnosis of left-sided DVT. Recent diagnosis of left lower extremity DVT. History of kidney stones. History of polysubstance abuse. History of hypothyroidism. History of ongoing tobacco use with nicotine addiction. Plan: Plan dated October 07, 2023. 33-year-old male seen today room 375. He is currently on room air. He is on IV heparin. In mid September, the patient was here in the hospital, for left leg pain and swelling. He was found to have left lower extremity DVT. The patient was treated with IV heparin, and then transition to Eliquis. The patient states t hat he has been taking Eliquis on a regular basis, and has not missed any doses. The day of his visit to the emergency department, he states he did not take his morning dose. The patient developed shortness of breath and left-sided chest pain. CT angiogram was positive for right lower lobe pulmonary embolism. Clinically, the patient is stable. Additional recommendations and suggestions are forthcoming. Labs, x-rays, medications are reviewed. I suspect the patient has not been particularly compliant with the Eliquis. That may have put him at risk for the pulmonary embolism. Time with Patient: Greater than 30
[2023-10-07] MEDS ORDERED: ONDANSETRON 4 MG TAB PO PRN (13:34)
[2023-10-07] MEDS ORDERED: LORazepam 2 MG/ML INJ IV PRN (13:36)
[2023-10-07] MEDS ORDERED: LORazepam 1 MG TAB PO PRN (13:36)
[2023-10-07] MEDS: PANTOPRAZOLE 40 MG TABLET PO SCH (14:48)
--- NOTE | 2023-10-07 15:10 | P.CONS ---
History of Present Illness - Reason for Consult Consult date: 10/07/23 Pulmonary embolism - Chief Complaint Chest pain - History of Present Illness Mr. Singh is a 33-year-old gentleman with a past medical history significant for bipolar disorder along with recently diagnosed DVT for whom we are consulted regarding pulmonary embolism. He noted 3 to 4 weeks of swelling in the left calf without any preceding trauma, illness, travel, or surgery. Duplex of the left lower extremity on 09/23/2023 noted DVT in the external iliac vein through the proximal calf. He was prescribed Eliquis 10 mg twice daily and was discharged. He subsequently noted development of left-sided chest pain after missing 1 dose of Eliquis. He slept in and did not take Eliquis in the morning like he normally has been. He noted the chest pain while smoking cigarette outside his house. Although the pain had resolved by the time he presented, he was concerned for the risk of pulmonary embolism. CTA on 10/06/2023 noted filling defect within the distal right pulmonary artery as well as within a couple arteries of the right upper lobe and right lower lobe lesions consistent with pulmonary embolism. He is otherwise hemodynamically stable and afebrile. CBC reveals no cytopenias with CMP revealing no acute metabolic abnormalities. He was started on heparin drip and admitted to internal medicine for additional management. He is otherwise feeling well. He denies any family history of VTE. Review of Systems 14 point review of systems conducted with pertinent positives negatives as noted per HPI Past Medical History Past Medical History: No Reported History Additional Past Medical History / Comment(s): kidney stones, DVT History of Any Multi-Drug Resistant Organisms: None Reported Past Surgical History: No Surgical Hx Reported Additional Past Surgical History / Comment(s): (L) arm surgery Past Anesthesia/Blood Transfusion Reactions: No Reported Reaction Past Psychological History: No Psychological Hx Reported Smoking Status: Current every day smoker Past Alcohol Use History: None Reported Additional Past Alcohol Use History / Comment(s): pt reports that he has been drinking every day. Past Drug Use History: None Reported, Cocaine, Methamphetamine Medications and Allergies Home Medications Medication Instructions Recorded Confirmed Type Apixaban [Eliquis Starter Pack See Taper PO DIRECTED 10/06/23 10/06/23 History (for VTE)] Desvenlafaxine Succinate [Pristiq 50 mg PO DAILY 10/06/23 10/06/23 History ER] Levothyroxine Sodium [Synthroid] 75 mcg PO DAILY 10/06/23 10/06/23 History [place] Carbonate [[place] 600 mg PO PC-SUPPER 10/06/23 10/06/23 History Carbonate ER] Mirtazapine [Remeron] 15 mg PO HS 10/06/23 10/06/23 History Nicotine Polacrilex [Nicotine Gum] 4 mg BC QID 10/06/23 10/06/23 History Sublocade 300mg/1.5ml 300 mg SQ Q28D 10/06/23 10/06/23 History Topiramate [Topamax] 50 mg PO DAILY 10/06/23 10/06/23 History ondansetron HCL [Zofran] 8 mg PO DAILY PRN 10/06/23 10/06/23 History Allergies Allergy/AdvReac Type Severity Reaction Status Date / Time No Known Allergies Allergy Verified 10/06/23 18:18 Physical Exam Vitals: Vital Signs Temp Pulse Pulse Resp BP BP Pulse Ox 10/07/23 12:00 98.1 F 90 16 125/87 98 10/07/23 08:00 98.8 F 70 18 118/80 98 10/07/23 04:00 98.2 F 57 L 18 101/60 95 10/07/23 02:00 70 17 10/07/23 00:00 97.9 F 58 L 18 112/69 96 10/06/23 20:56 81 18 10/06/23 20:54 98.1 F 81 18 125/85 96 10/06/23 18:14 97.8 F 66 18 118/80 95 10/06/23 16:07 98 18 110/71 98 10/06/23 14:11 97.7 F 74 20 122/78 98 Intake and Output 10/06/23 10/07/23 10/07/23 22:59 06:59 14:59 Intake Total 222.719 44.037 Balance 222.719 44.037 Intake: Intake, IV Titration 222.719 44.037 Amount Heparin Sod,Pork in 0.45% 222.719 44.037 NaCl 25,000 unit In 0.45 % NaCl 1 250ml.bag @ 18 UNITS/KG/HR 20.085 mls/hr IV .[id number] COUNT INCLUDES THE [facility] Rx#: [id number] Other: Voiding Method Toilet Toilet Toilet # Voids 2 2 # Bowel Movements 2 Weight 111.584 kg 109.7 kg - Constitutional General appearance: cooperative, no acute distress - EENT Eyes: EOMI - Respiratory Respiratory: bilateral: CTA - Cardiovascular Rhythm: regular Heart sounds: normal: S1, S2 - Gastrointestinal General gastrointestinal: no distended, normal bowel sounds, soft, no tenderness - Neurologic Neurologic: CNII-XII intact Results CBC & Chem 7: 10/06/23 17:45 10/06/23 17:45 Labs: Abnormal Lab Results - Last 24 Hours (Table) 10/06/23 10/07/23 10/07/23 Range/Units 17:45 01:31 07:30 APTT 91.9 H 65.1 H (22.0-30.0) sec Carbon Dioxide 31 H (22-30) mmol/L Glucose 104 H (74-99) mg/dL CT scan - chest: report reviewed Assessment and Plan Plan: #Left lower extremity DVT, PE -Diagnosed with unprovoked DVT of the left lower extremity on 09/23/2023 from the external iliac vein to the proximal calf vein -He missed 1 dose of Eliquis and had been smoking when he noted sudden onset of left-sided chest pain -CTA of the chest on admission consistent with pulmonary embolism, which is also unprovoked -I do recommend obtaining Doppler of the right lower extremity -Unclear if this represents a failure of anticoagulation -We did discuss that smoking increases the risk of VTE, which could have contributed to the DVT and PE -Partial hypercoagulable workup, including workup for antiphospholipid syndrome, ordered as some of these test cannot be ordered in the setting of the acute VTE episode -Continue heparin drip for now -In the event this is a failure of anticoagulation, we could transition from heparin drip to Pradaxa 150 mg twice daily. He will need insurance autho rization for this Johnson Roca MD
--- NOTE | 2023-10-07 15:21 | US ---
EXAMINATION TYPE: US venous doppler duplex LE BI DATE OF EXAM: 10/07/2023 3:04 PM COMPARISON: NONE CLINICAL INDICATION: Male, 33 years old with history of PE and recent LLE DVT, assess clot burden; Hx of left leg DVT 09/23/23 and PE on blood thinners. SIDE PERFORMED: Bilateral TECHNIQUE: The lower extremity deep venous system is examined utilizing real time linear array sonog ralph with graded compression, doppler sonography and color-flow sonography. VESSELS IMAGED: Common Femoral Vein Deep Femoral Vein Greater Saphenous Vein * Femoral Vein Popliteal Vein Small Saphenous Vein * Proximal Calf Veins (* superficial vessels) Right Leg: Negative for DVT Left Leg: Positive for DVT Same as previous study. On 09/23/2023. Significant change. IMPRESSION: Grayscale, color doppler, spectral doppler imaging performed of the deep veins of the lo wer extremities. There is normal flow, compressibility, vascular waveforms.
[2023-10-07] MEDS: LITHIUM CARBONATE 300 MG CAP PO SCH (19:08)
--- NOTE | 2023-10-08 00:03 | HP ---
HISTORY AND PHYSICAL CHIEF COMPLAINTS: Shortness of breath and diastolic chest pain. HISTORY OF PRESENT ILLNESS: This is a 33-year-old gentleman with a past medical history of multiple medical problems including substance abuse, was complaining of left calf pain. About 2 weeks ago, DVT was diagnosed outpatient and the patient was started on Eliquis which the patient is taking, however, yesterday the patient developed shortness of breath and diastolic chest pain which started on the left side of the chest, radiating to the right and the patient came to [facility]. The patient was found to have acute pulmonary embolism on the right side and the patient was admitted for further evaluation and treatment. There is no history of any fever, rigors, or chills at this time. The left calf swelling still persists. PAST MEDICAL HISTORY: History of nephrolithiasis, DVT. HOME MEDICATIONS: Zofran, doses and rest of medications noted. ALLERGIES: None. FAMILY HISTORY: No history of heart disease or strokes in the family. No history of any DVT. SOCIAL HISTORY: History of polysubstance abuse including cocaine, methamphetamine, ETOH, ecstasy, DMT, mushrooms, heroin, crack, prescription opioids, benzodiazepines. ALLERGIES: None. FAMILY HISTORY: No history of heart disease or strokes in the family. SOCIAL HISTORY: History of smoking. REVIEW OF SYSTEMS: A 14-point review is negative except as mentioned earlier. PHYSICAL EXAMINATION: VITAL SIGNS: Pulse is 57, blood pressure 101/60, respirations 18. HEENT: Conjunctivae normal. NECK: No jugular venous distention. CARDIOVASCULAR: S1, S2. RESPIRATIONS: Diminished at the bases, few scattered rhonchi. ABDOMEN: Soft, nontender. LEGS: Significant swelling and pain on the left calf present. NERVOUS SYSTEM: No focal deficits. LABORATORY DATA: Reviewed. ASSESSMENT: 1. Acute pulmonary embolism right side with possibly failure of anticoagulation. 2. Left DVT spontaneous, unprovoked. 3. History of nephrolithiasis. 4. Extensive history of substance abuse. 5. History of nicotine dependence. RECOMMENDATIONS AND DISCUSSION: This 33-year-old gentleman presented with multiple complex medical issues, we will monitor the patient closely. I would recommend IV heparin, will recommend Pulmonary and Hematology Oncology evaluation. I also recommended repeat 2D echo with Doppler to rule out the possibility of right ventricular strain as well as repeat ultrasound of the legs to ensure there is no progression of the blood clot. Otherwise, if there is any change, vascular surgery consultation also will be indicated. Otherwise, we will continue with current medications. Prognosis guarded. Further recommendations to follow. MMODL / IJN: [id number] /
[2023-10-08 07:35] LABS: Basophils % (A) 0 %; Eosinophils # (A) 0.3 k/uL (0-0.7); Eosinophils % (A) 4 %; HCT 40.9 % (39.0-53.0); HGB 13.2 gm/dL (13.0-17.5); Lymphocytes # (A) 2.6 k/uL (1.0-4.8); Lymphocytes % (A) 36 %; MCH 27.6 pg (25.0-35.0); MCHC 32.4 g/dL (31.0-37.0); MCV 85.1 fL (80.0-100.0); Mean Platelet Volume 9.1; Monocytes # (A) 0.4 k/uL (0-1.0); Monocytes % (A) 6 %; Neutrophils # (A) 3.8 k/uL (1.3-7.7); Neutrophils % (A) 53 %; Platelet Count 166 k/uL (150-450); RDW 12.6 % (11.5-15.5); WBC 7.1 k/uL (3.8-10.6)
[2023-10-08 07:58] LABS: African American GFR (CKD) >90 (>60 ml/min/1.73 sqM); Anion Gap 2 mmol/L; Blood Urea Nitrogen 12 mg/dL (9-20); Calcium 8.8 mg/dL (8.4-10.2); Carbon Dioxide 25 mmol/L (22-30); Chloride 106 mmol/L (98-107); Glucose 114 mg/dL (74-99); Non-African American GFR(CKD) >90 (>60 ml/min/1.73 sqM); Sodium 133 mmol/L (137-145)
--- NOTE | 2023-10-08 14:05 | P.PN ---
Subjective Progress Note Date: 10/08/23 33-year-old male who was in the hospital back on September 22, for left leg swelling and pain. At that time, he was found to have a left-sided DVT. He was placed on Eliquis, and discharged. More recently, he comes back into the emergency room on October 05, complaining of shortness of breath, left-sided chest pain. A CT angiogram was positive for right-sided pulmonary embolism. The patient states that he had been taking his Eliquis as prescribed. The patient states that he did not take his morning Eliquis dose, the day that he came into the emergency room. He apparently was smoking a cigarette, and did not take it that day. The patient has a history of hypothyroidism, kidney stones, and a previous history of IV drug abuse with heroin. The patient does continue to smoke cigarettes. Current labs include a completely normal CBC, and a PTT of 65.1. Sodium 138, potassium 4.5, chlorides 103, CO2 31, BUN 11, creatinine 0.71. Glucose was 104. The rest of the labs look okay. The patient is currently on room air. The patient is receiving IV heparin. The patient was seen today October 08, 2023 in follow-up on the selective care unit. He is currently resting comfortably in bed. Awake and alert in no acute distress. He is currently on a heparin drip for his PE/left lower extremity DVT. White count 7.1. Hemoglobin 1213.2. Platelets 166. Sodium 133. Potassium 4.0. Bicarb 25. BUN 12. Creatinine 0.70. Objective - Vital Signs Vital signs: Vital Signs Temp 98.1 F 10/08/23 12:10 Pulse 79 10/08/23 12:10 Resp 16 10/08/23 12:10 BP 118/70 10/08/23 12:10 Pulse Ox 96 10/08/23 12:10 FiO2 Intake & Output 10/07/23 10/08/23 10/08/23 18:59 06:59 18:59 Intake Total 284.037 196.383 567.773 Balance 284.037 196.383 567.773 Weight 109 kg Intake: Intake, IV Titration 44.037 196.383 209.773 Amount Heparin Sod,Pork in 0.45% 44.037 196.383 209.773 NaCl 25,000 unit In 0.45 % NaCl 1 250ml.bag @ 18 UNITS/KG/HR 20.085 mls/hr IV .[id number] [facility] Rx#: [id number] Oral 240 358 Other: Voiding Method Toilet Toilet Toilet # Voids 3 2 - Exam GENERAL EXAM: Alert, pleasant 33-year-old male, on room air, comfortable in no apparent distress. HEAD: Normocephalic. EYES: Normal reaction of pupils, equal size. NOSE: Clear with pink turbinates. THROAT: No erythema or exudates. NECK: No masses, no JVD. CHEST: No chest wall deformity. LUNGS: Equal air entry with no crackles, wheeze, rhonchi or dullness. CVS: S1 and S2 normal with no audible murmur, regular rhythm. ABDOMEN: No hepatosplenomegaly, normal bowel sounds, no guarding or rigidity. SPINE: No scoliosis or deformity SKIN: No rashes CENTRAL NERVOUS SYSTEM: No focal deficits, tone is normal in all 4 extremities. EXTREMITIES: There is no peripheral edema. No clubbing, no cyanosis. Peripheral pulses are intact. - Labs CBC & Chem 7: 10/08/23 06:52 10/08/23 06:52 Labs: Abnormal Lab Results - Last 24 Hours (Table) 10/08/23 10/08/23 Range/Units 06:52 06:52 APTT 61.3 H (22.0-30.0) sec Sodium 133 L (137-145) mmol/L Glucose 114 H (74-99) mg/dL Assessment and Plan Assessment: Acute pulmonary embolism, secondary to previous recent diagnosis of left-sided DVT. Recent diagnosis of left lower extremity DVT. History of kidney stones. History of polysubstance abuse. History of hypothyroidism. History of ongoing tobacco use with nicotine addiction. Plan: The patient was seen and evaluated Labs and medications reviewed Stable and on room air Remains on a heparin drip Anticoagulation per hematology recommendations I have personally seen and examined the patient, performed the documentation and the assessment and plan as written. Number of minutes spent on the visit: 10.
[2023-10-08 15:02] LABS: Cardiolipin Ab IgG Interp Negative (Negative); Cardiolipin Ab IgM Interp Negative (Negative); Cardiolipin IgM Antibody <1.5 U/mL
[2023-10-08] MEDS: ALPRAZolam 0.25 MG TAB PO PRN (17:12)
--- NOTE | 2023-10-08 18:04 | CA ---
Transthoracic Echo Report Name: Javier Singh Age: 33 Gender: M : 1990 Exam Date: 10/08/2023 11:02 Exam Location: [facility] Ht (in): 71 Wt (lb): 241 Ordering Physician: Ashlee Willis MD Attending/Referring Phys: [place] Eloise Valero RDCS Procedure CPT: Indications: PE Cardiac Hx: Technical Quality: Fair Contrast 1: Total Dose (mL): Contrast 2: Total Dose (mL): MEASUREMENTS (Male / Female) Normal Values 2D ECHO LV Diastolic Diameter PLAX 4.5 cm 4.2 - 5.9 / 3.9 - 5.3 cm LV Systolic Diameter PLAX 3.2 cm IVS Diastolic Thickness 1.1 cm 0.6 - 1.0 / 0.6 - 0.9 cm LVPW Diastolic Thickness 1.3 cm 0.6 - 1.0 / 0.6 - 0.9 cm LV Relative Wall Thickness 0.5 RV Internal Dim ED PLAX 3.1 cm LA Volume 77.6 cm??? 18 - 58 / 22 - 52 cm??? LA Volume Index 32.7 cm???/m??? 16 - 28 cm???/m??? M-MODE Aortic Root Diameter MM 3.3 cm LA Systolic Diameter MM 3.9 cm LA Ao Ratio MM 1.2 AV Cusp Separation MM 2.1 cm DOPPLER AV Peak Velocity 117.5 cm/s AV Peak Gradient 5.5 mmHg AV Mean Velocity 88.4 cm/s AV Mean Gradient 3.4 mmHg AV Velocity Time Integral 26.3 cm LVOT Peak Velocity 125.2 cm/s LVOT Peak Gradient 6.3 mmHg LVOT Velocity Time Integral 24.0 cm MV Area PHT 3.3 cm??? Mitral E Point Velocity 76.5 cm/s Mitral A Point Velocity 55.9 cm/s Mitral E to A Ratio 1.4 MV Deceleration Time 230.5 ms MV E' Velocity 13.5 cm/s Mitral E to MV E' Ratio 5.7 TR Peak Velocity 210.9 cm/s TR Peak Gradient 17.8 mmHg Right Ventricular Systolic Press 22.8 mmHg FINDINGS Left Ventricle Mildly increased left ventricular wall thickness. Left ventricular cavity size normal. Normal left ventricular systolic function with no obvious regional wall motion abnormalities. Left ventricular ejection fraction is estimated at55-60 %. Grade 1 diastolic dysfunction. Right Ventricle Normal right ventricular size and function. Right ventricular systolic pressure within normal limits. Tapse is at 33 mm, S' 14cm/sec. no right heart strain was noted. Right Atrium Normal right atrial size. Left Atrium Mildly increased left atrial volume. Mildly increased left atrial area. Mitral Valve Structurally normal mitral valve. No mitral stenosis. Mild mitral regurgitation. Aortic Valve Trileaflet aortic valve. No aortic valve stenosis or regurgitation. Tricuspid Valve Structurally normal tricuspid valve. Mild tricuspid regurgitation. Pulmonic Valve Structurally normal pulmonic valve. Pericardium No pericardial effusion. Aorta Normal size aortic root and proximal ascending aorta. CONCLUSIONS Preserved LV size and systolic function Previewed by: Dr. Andrea Calloway MD (Electronically Signed) Final Date: 08 October 2023 18:04
--- NOTE | 2023-10-08 20:45 | PN ---
PROGRESS NOTE DATE OF SERVICE: 10/08/2023 SUBJECTIVE: This is a 33-year-old gentleman admitted with unprovoked DVT and as well as pulmonary embolism with possible failure of outpatient treatment, is being closely monitored. No chest pain. No palpitation. OBJECTIVE: VITAL SIGNS: Pulse 79, blood pressure 118/70, respirations 16. CHEST: Clear to auscultation. CARDIOVASCULAR: S1, S2. ABDOMEN: Soft. LEGS: Left leg swelling present. LABORATORY DATA: Sodium 133. ASSESSMENT: 1. Acute pulmonary embolism, right side with possible failure of anticoagulation. 2. Left deep venous thrombosis, spontaneous, unprovoked. 3. History of nephrolithiasis. 4. Hyponatremia. 5. History of substance abuse. 6. History of nicotine dependence. RECOMMENDATIONS AND DISCUSSION: Recommend to continue current management and continue symptomatic treatment. Otherwise, at this time, I would recommend continue with IV heparin and procoagulant workup. A 2D echo has been ordered. Repeat labs. Cardiolipin, factor 5, lupus anticoagulant, and prothrombin gene mutation has been sought. Further recommendations to follow. MMODL / IJN: [id number] /
[2023-10-08 21:10] LABS: Appearance,Urine Clear (Clear); Bilirubin,Urine Negative (Negative); Blood,Urine Negative (Negative); Color,Urine Colorless; Glucose,Urine (UA) Negative (Negative); Ketones,Urine Negative (Negative); Leukocyte Esterase,Urine Negative (Negative); Nitrite,Urine Negative (Negative); PH, Urine 6.5 (5.0-8.0); Protein,Urine Negative (Negative); Specific Gravity,Urine 1.015 (1.001-1.035); Urobilinogen,Urine <2.0 mg/dL (<2.0)
[2023-10-09 07:28] LABS: Basophils % (A) 1 %; Eosinophils # (A) 0.3 k/uL (0-0.7); Eosinophils % (A) 4 %; HCT 39.7 % (39.0-53.0); HGB 12.9 gm/dL (13.0-17.5); Lymphocytes # (A) 2.9 k/uL (1.0-4.8); Lymphocytes % (A) 40 %; MCH 27.2 pg (25.0-35.0); MCHC 32.6 g/dL (31.0-37.0); MCV 83.5 fL (80.0-100.0); Mean Platelet Volume 8.8; Monocytes # (A) 0.4 k/uL (0-1.0); Monocytes % (A) 6 %; Neutrophils # (A) 3.4 k/uL (1.3-7.7); Neutrophils % (A) 48 %; Platelet Count 174 k/uL (150-450); RBC 4.76 m/uL (4.30-5.90); RDW 12.7 % (11.5-15.5); WBC 7.2 k/uL (3.8-10.6)
[2023-10-09 09:51] LABS: ALT 17 U/L (4-49); AST 35 U/L (17-59); African American GFR (CKD) >90 (>60 ml/min/1.73 sqM); Albumin 3.9 g/dL (3.5-5.0); Alkaline Phosphatase 126 U/L (38-126); Anion Gap 6 mmol/L; Blood Urea Nitrogen 12 mg/dL (9-20); Calcium 8.9 mg/dL (8.4-10.2); Carbon Dioxide 23 mmol/L (22-30); Chloride 107 mmol/L (98-107); Glucose 107 mg/dL (74-99); Non-African American GFR(CKD) >90 (>60 ml/min/1.73 sqM); Potassium 4.2 mmol/L (3.5-5.1); Sodium 136 mmol/L (137-145); Total Bilirubin 0.5 mg/dL (0.2-1.3); Total Protein 6.2 g/dL (6.3-8.2)
--- NOTE | 2023-10-09 11:10 | P.GSCN ---
History of Present Illness Consult date: 10/09/23 Reason for Consult: Lower extremity DVT, PE Requesting physician: Stephanie Bangura History of present illness: This is a pleasant 33-year-old male who presented to the emergency department yesterday with complaints of shortness of breath. Apparently patient was seen in diagnosed with a left lower extremity deep vein thrombosis on 09/23/2023. He was started on Eliquis at that time. Unclear etiology of DVT as patient states he had no recent travel, no injury, no recent surgery no history of clotting disorder or family known history of clotting disorder. He is a current smoker and history of cocaine and methamphetamine use. He was started on Eliquis and sent home. He states he has been taking all of his doses of Eliquis as ordered other than he did miss the morning dose of the date of incident. Left lower extremity deep vein thrombosis from external iliac vein to popliteal vein. Patient states he has continued lower extremity swelling mostly in the calf foot swelling has improved. He had a CT angiogram that is showing a right pulmonary embolism. Currently states he has no shortness of breath and no chest pain. He is not requiring any oxygen supplementation and oxygen saturations have been 98% on room air. Review of Systems A 14 point review systems was completed all pertinent positives and negatives as stated in the HPI. Past Medical History Past Medical History: No Reported History Additional Past Medical History / Comment(s): kidney stones, DVT History of Any Multi-Drug Resistant Organisms: None Reported Past Surgical History: No Surgical Hx Reported Additional Past Surgical History / Comment(s): (L) arm surgery Past Anesthesia/Blood Transfusion Reactions: No Reported Reaction Past Psychological History: No Psychological Hx Reported Smoking Status: Current every day smoker Past Alcohol Use History: None Reported Additional Past Alcohol Use History / Comment(s): pt reports that he has been drinking every day. Past Drug Use History: None Reported, Cocaine, Methamphetamine Medications and Allergies Home Medications Medication Instructions Recorded Confirmed Type Apixaban [Eliquis Starter Pack See Taper PO DIRECTED 10/06/23 10/06/23 History (for VTE)] Desvenlafaxine Succinate [Pristiq 50 mg PO DAILY 10/06/23 10/06/23 History ER] Levothyroxine Sodium [Synthroid] 75 mcg PO DAILY 10/06/23 10/06/23 History Carrizozo Carbonate [Carrizozo 600 mg PO PC-SUPPER 10/06/23 10/06/23 History Carbonate ER] Mirtazapine [Remeron] 15 mg PO HS 10/06/23 10/06/23 History Nicotine Polacrilex [Nicotine Gum] 4 mg BC QID 10/06/23 10/06/23 History Sublocade 300mg/1.5ml 300 mg SQ Q28D 10/06/23 10/06/23 History Topiramate [Topamax] 50 mg PO DAILY 10/06/23 10/06/23 History ondansetron HCL [Zofran] 8 mg PO DAILY PRN 10/06/23 10/06/23 History Allergies Allergy/AdvReac Type Severity Reaction Status Date / Time No Known Allergies Allergy Verified 10/06/23 18:18 Surgical - Exam Vital Signs Temp Pulse Resp BP Pulse Ox 97.7 F 74 20 122/78 98 10/06/23 14:11 10/06/23 14:11 10/06/23 14:11 10/06/23 14:11 10/06/23 14:11 General appearance: The patient is alert, oriented, appears in no acute di stress. HET: Head is normocephalic and atraumatic. Pupils are equal and reactive. Neck: Supple. Heart: Regular. Lungs: Equal expansion, normal respiratory effort. Abdomen: Soft, nontender, nondistended. Extremities: Normal skin color and turgor. Palpable bilateral DP and PT pulses. Left lower extremity swelling from the knee to ankle. Neurological: No focal deficits. Strength and sensation are grossly intact. Results - Labs 10/09/23 07:03 10/09/23 07:03 Abnormal Lab Results - Last 24 Hours (Table) 10/08/23 10/08/23 10/09/23 Range/Units 06:52 06:52 07:03 Hgb 12.9 L (13.0-17.5) gm/dL APTT (22.0-30.0) sec Sodium 133 L (137-145) mmol/L Glucose 114 H (74-99) mg/dL C-Reactive Protein 1.1 H (<1.0) mg/dL 10/09/23 Range/Units 07:03 Hgb (13.0-17.5) gm/dL APTT 69.7 H (22.0-30.0) sec Sodium (137-145) mmol/L Glucose (74-99) mg/dL C-Reactive Protein (<1.0) mg/dL Diabetes panel 10/08/23 Range/Units 06:52 Sodium 133 L (137-145) mmol/L Potassium 4.0 (3.5-5.1) mmol/L Chloride 106 (98-107) mmol/L Carbon Dioxide 25 (22-30) mmol/L BUN 12 (9-20) mg/dL Creatinine 0.70 (0.66-1.25) mg/dL Glucose 114 H (74-99) mg/dL Calcium 8.8 (8.4-10.2) mg/dL Calcium panel 10/08/23 Range/Units 06:52 Calcium 8.8 (8.4-10.2) mg/dL Pituitary panel 10/08/23 Range/Units 06:52 Sodium 133 L (137-145) mmol/L Potassium 4.0 (3.5-5.1) mmol/L Chloride 106 (98-107) mmol/L Carbon Dioxide 25 (22-30) mmol/L BUN 12 (9-20) mg/dL Creatinine 0.70 (0.66-1.25) mg/dL Glucose 114 H (74-99) mg/dL Calcium 8.8 (8.4-10.2) mg/dL Adrenal panel 10/08/23 Range/Units 06:52 Sodium 133 L (137-145) mmol/L Potassium 4.0 (3.5-5.1) mmol/L Chloride 106 (98-107) mmol/L Carbon Dioxide 25 (22-30) mmol/L BUN 12 (9-20) mg/dL Creatinine 0.70 (0.66-1.25) mg/dL Glucose 114 H (74-99) mg/dL Calcium 8.8 (8.4-10.2) mg/dL - Imaging Comments: Echocardiogram reports preserved LV size and systolic function. EF 55 to 60%. Right ventricular systolic pressure within normal limits. Chest CT angiogram reports findings compatible with right sided pulmonary embolism Assessment and Plan Assessment: 1. Pulmonary embolism 2. Left lower extremity deep vein thrombosis 3. Current everyday smoker Plan: Unclear if this is failed anticoagulation and as there was no chest CT angiogram done at time of diagnosis of deep vein thrombosis, Although patient was asymptomatic at that time. Neither pulmonary embolism or left lower extremity DVT require any surgical intervention. Continue with elevation of left lower extremity and apply compression stocking. Continue anticoagulation recommendations per hematology. This consultation, we will sign off at this time. The impression and plan of care has been dictated as directed. I performed a history and examination of this patient, discussed the same with the dictator. I agree with the dictator's note ,documented as a scribe. Any additional findings or plans will be noted.
[2023-10-09 12:24] LABS: APTT 125 Sec(s) (<43); APTT 1:1 Mix 63 Sec(s) (<43); Dilute Russell Viper Venom 36 Sec(s) (<44); Hexagonal Phase Neutralization Negative (Negative)
--- NOTE | 2023-10-09 14:10 | P.PN ---
Subjective Progress Note Date: 10/09/23 33-year-old male who was in the hospital back on September 22, for left leg swelling and pain. At that time, he was found to have a left-sided DVT. He was placed on Eliquis, and discharged. More recently, he comes back into the emergency room on October 05, complaining of shortness of breath, left-sided chest pain. A CT angiogram was positive for right-sided pulmonary embolism. The patient states that he had been taking his Eliquis as prescribed. The patient states that he did not take his morning Eliquis dose, the day that he came into the emergency room. He apparently was smoking a cigarette, and did not take it that day. The patient has a history of hypothyroidism, kidney stones, and a previous history of IV drug abuse with heroin. The patient does continue to smoke cigarettes. Current labs include a completely normal CBC, and a PTT of 65.1. Sodium 138, potassium 4.5, chlorides 103, CO2 31, BUN 11, creatinine 0.71. Glucose was 104. The rest of the labs look okay. The patient is currently on room air. The patient is receiving IV heparin. The patient was seen today October 08, 2023 in follow-up on the selective care unit. He is currently resting comfortably in bed. Awake and alert in no acute distress. He is currently on a heparin drip for his PE/left lower extremity DVT. White count 7.1. Hemoglobin 1213.2. Platelets 166. Sodium 133. Potassium 4.0. Bicarb 25. BUN 12. Creatinine 0.70. The patient was seen today October 09 2023 in follow-up on the selective care unit. He is awake and alert in no acute distress. Sitting up in bed. Left leg elevated. He is maintaining good O2 saturations in the 90s on room air. He is afebrile. Hemodynamically stable. He denies any worsening shortness of breath, cough or congestion. No hemoptysis. He is continued on a heparin drip. White count 7 6. Potassium 4.2. Bicarb 23. BUN 12. Creatinine 0.69. Objective - Vital Signs Vital signs: Vital Signs Temp 98.2 F 10/09/23 12:00 Pulse 60 10/09/23 12:00 Resp 16 10/09/23 12:00 BP 115/81 10/09/23 12:00 Pulse Ox 98 10/09/23 12:00 FiO2 Intake & Output 10/08/23 10/09/23 10/09/23 18:59 06:59 18:59 Intake Total 788.000 910.000 Balance 788.000 910.000 Weight 108.9 kg Intake: Intake, IV Titration 250.000 250.000 Amount Heparin Sod,Pork in 0.45% 250.000 250.000 NaCl 25,000 unit In 0.45 % NaCl 1 250ml.bag @ 18 UNITS/KG/HR 20.085 mls/hr IV .[id number] [facility] Rx#: [id number] Oral [id number] Other: Voiding Method Toilet Toilet Toilet # Voids 3 2 - Exam GENERAL EXAM: Alert, pleasant 33-year-old male, on room air, resting comfortably in bed, in no apparent distress. HEAD: Normocephalic. EYES: Normal reaction of pupils, equal size. NOSE: Clear with pink turbinates. THROAT: No erythema or exudates. NECK: No masses, no JVD. CHEST: No chest wall deformity. LUNGS: Equal air entry with no crackles, wheeze, rhonchi or dullness. CVS: S1 and S2 normal with no audible murmur, regular rhythm. ABDOMEN: No hepatosplenomegaly, normal bowel sounds, no guarding or rigidity. SPINE: No scoliosis or deformity SKIN: No rashes CENTRAL NERVOUS SYSTEM: No focal deficits, tone is normal in all 4 extremities. EXTREMITIES: There is some left lower extremity edema. No clubbing, no cyanosis. Peripheral pulses are intact. - Labs CBC & Chem 7: 10/09/23 07:03 10/09/23 07:03 Labs: Abnormal Lab Results - Last 24 Hours (Table) 10/08/23 10/08/23 10/09/23 Range/Units 06:52 06:52 07:03 Hgb 12.9 L (13.0-17.5) gm/dL APTT (22.0-30.0) sec Lupus Anticoag aPTT 125 H (<43) Sec(s) Lupus Anticoag PTT Mix 63 H (<43) Sec(s) Sodium (137-145) mmol/L Glucose (74-99) mg/dL C-Reactive Protein 1.1 H (<1.0) mg/dL Total Protein (6.3-8.2) g/dL 10/09/23 10/09/23 Range/Units 07:03 07:03 Hgb (13.0-17.5) gm/dL APTT 69.7 H (22.0-30.0) sec Lupus Anticoag aPTT (<43) Sec(s) Lupus Anticoag PTT Mix (<43) Sec(s) Sodium 136 L (137-145) mmol/L Glucose 107 H (74-99) mg/dL C-Reactive Protein (<1.0) mg/dL Total Protein 6.2 L (6.3-8.2) g/dL Assessment and Plan Assessment: Acute pulmonary embolism, secondary to previous recent diagnosis of left-sided DVT. Recent diagnosis of left lower extremity DVT. Treated with Eliquis History of kidney stones. History of polysubstance abuse. History of hypothyroidism. History of ongoing tobacco use with nicotine addiction. Plan: The patient was seen and evaluated Labs and medications reviewed Remains on a heparin drip Anticoagulation per hematology recommendations Home once anticoagulation decided upon I have personally seen and examined the patient, performed the documentation and the assessment and plan as written. Number of minutes spent on the visit: 10.
--- NOTE | 2023-10-09 21:42 | PN ---
PROGRESS NOTE DATE OF SERVICE: 10/09/2023 SUBJECTIVE: This is a 33-year-old gentleman admitted with pulmonary embolism and as well as possible failure of anticoagulation for DVT, is on IV heparin. No chest pain. No palpitations. Dr. Thomason is recommending either Lovenox or Coumadin. OBJECTIVE: VITAL SIGNS: Pulse is 60, blood pressure 159/81, respirations 16. CHEST: Clear to auscultation. CARDIOVASCULAR: S1, S2. ABDOMEN: Soft. LEGS: Left leg is painful and tender. LABORATORY DATA: Noted. COVID-19 is negative. ASSESSMENT: 1. Acute pulmonary embolism, right side with possible failure of anticoagulation. 2. On IV heparin. 3. Left venous thrombosis, DVT of the leg and spontaneous, unprovoked. 4. History of nephrolithiasis. 5. Hyponatremia. 6. History of substance abuse. 7. History of nicotine dependence. RECOMMENDATIONS AND DISCUSSION: Recommended to continue current management. Continue symptomatic treatment. Continue with IV heparin. As mentioned earlier, the Lovenox or Coumadin per Dr. Thomason's recommendations. Closely follow with Cardiothoracic Surgery. Further recommendations to follow. Anticardiolipin antibodies are negative. MMODL / IJN: [id number] /
[2023-10-10 12:43] LABS: Prothrombin 20210A Mutation Negative
--- NOTE | 2023-10-10 17:09 | P.PN ---
Subjective Progress Note Date: 10/10/23 33-year-old male who was in the hospital back on September 22, for left leg swelling and pain. At that time, he was found to have a left-sided DVT. He was placed on Eliquis, and discharged. More recently, he comes back into the emergency room on October 05, complaining of shortness of breath, left-sided chest pain. A CT angiogram was positive for right-sided pulmonary embolism. The patient states that he had been taking his Eliquis as prescribed. The patient states that he did not take his morning Eliquis dose, the day that he came into the emergency room. He apparently was smoking a cigarette, and did not take it that day. The patient has a history of hypothyroidism, kidney stones, and a previous history of IV drug abuse with heroin. The patient does continue to smoke cigarettes. Current labs include a completely normal CBC, and a PTT of 65.1. Sodium 138, potassium 4.5, chlorides 103, CO2 31, BUN 11, creatinine 0.71. Glucose was 104. The rest of the labs look okay. The patient is currently on room air. The patient is receiving IV heparin. The patient was seen today October 08, 2023 in follow-up on the selective care unit. He is currently resting comfortably in bed. Awake and alert in no acute distress. He is currently on a heparin drip for his PE/left lower extremity DVT. White count 7.1. Hemoglobin 1213.2. Platelets 166. Sodium 133. Potassium 4.0. Bicarb 25. BUN 12. Creatinine 0.70. The patient was seen today October 09 2023 in follow-up on the selective care unit. He is awake and alert in no acute distress. Sitting up in bed. Left leg elevated. He is maintaining good O2 saturations in the 90s on room air. He is afebrile. Hemodynamically stable. He denies any worsening shortness of breath, cough or congestion. No hemoptysis. He is continued on a heparin drip. White count 7 6. Potassium 4.2. Bicarb 23. BUN 12. Creatinine 0.69. The patient was seen and evaluated today October 10, 2023 in follow-up on the selective care unit. He is sitting up in bed. Awake and alert in no acute distress. Maintaining good O2 saturations in the 90s on room air. He is been afebrile. Hemodynamically stable. He remains on a heparin drip. The plan is to transition to Pradaxa. Objective - Vital Signs Vital signs: Vital Signs Temp 98.1 F 10/10/23 15:46 Pulse 69 10/10/23 15:46 Resp 16 10/10/23 15:46 BP 113/67 10/10/23 15:46 Pulse Ox 96 10/10/23 15:46 FiO2 Intake & Output 10/09/23 10/10/23 10/10/23 18:59 06:59 18:59 Intake Total 1030.000 250 638 Balance 1030.000 250 638 Weight 109.7 kg Intake: Intake, IV Titration 250.000 250 Amount Heparin Sod,Pork in 0.45% 250.000 250 NaCl 25,000 unit In 0.45 % NaCl 1 250ml.bag @ 18 UNITS/KG/HR 20.085 mls/hr IV .[id number] [facility] Rx#: [id number] Oral [id number] Other: Voiding Method Toilet Toilet Toilet # Voids 2 3 2 - Exam GENERAL EXAM: Alert, 33-year-old male, on room air, resting in bed, in no apparent distress. HEAD: Normocephalic. EYES: Normal reaction of pupils, equal size. NOSE: Clear with pink turbinates. THROAT: No erythema or exudates. NECK: No masses, no JVD. CHEST: No chest wall deformity. LUNGS: Equal air entry with no crackles, wheeze, rhonchi or dullness. CVS: S1 and S2 normal with no audible murmur, regular rhythm. ABDOMEN: No hepatosplenomegaly, normal bowel sounds, no guarding or rigidity. SPINE: No scoliosis or deformity SKIN: No rashes CENTRAL NERVOUS SYSTEM: No focal deficits, tone is normal in all 4 extremities. EXTREMITIES: There is some left lower extremity edema. No clubbing, no cyanosis. Peripheral pulses are intact. - Labs CBC & Chem 7: 10/09/23 07:03 10/09/23 07:03 Labs: Abnormal Lab Results - Last 24 Hours (Table) 10/10/23 Range/Units 08:15 APTT 71.5 H (22.0-30.0) sec Assessment and Plan Assessment: Acute pulmonary embolism, secondary to previous recent diagnosis of left-sided DVT Recent diagnosis of left lower extremity DVT. Treated with Eliquis History of kidney stones. History of polysubstance abuse. History of hypothyroidism. History of ongoing tobacco use with nicotine addiction. Plan: The patient was seen and evaluated Labs and medications reviewed Remains stable and on room air Remains on a heparin drip Plan is to transition to Pradaxa Home in a.m. I have personally seen and examined the patient, performed the documentation and the assessment and plan as written. Number of minutes spent on the visit: 10.
[2023-10-10] MEDS: ALPRAZolam 0.25 MG TAB PO STA (17:24)
--- NOTE | 2023-10-10 18:54 | P.PN ---
Subjective Progress Note Date: 10/10/23 Principal diagnosis: Hx DVT, new PE, concern for failure of anticoagulation In follow-up today patient denies any chest pain, pain with inspiration, hemoptysis or difficulty breathing. His left lower extremity is swollen when compared with the right, he does have some cramping sensations on the lateral aspect of his calf and the top of his foot sometimes. He does have a comp ression stocking that he wears. Objective - Vital Signs Vital signs: Vital Signs Temp 98.1 F 10/10/23 15:46 Pulse 69 10/10/23 15:46 Resp 16 10/10/23 15:46 BP 113/67 10/10/23 15:46 Pulse Ox 96 10/10/23 15:46 FiO2 Intake & Output 10/09/23 10/10/23 10/10/23 18:59 06:59 18:59 Intake Total 1030.000 250 878 Balance 1030.000 250 878 Weight 109.7 kg Intake: Intake, IV Titration 250.000 250 Amount Heparin Sod,Pork in 0.45% 250.000 250 NaCl 25,000 unit In 0.45 % NaCl 1 250ml.bag @ 18 UNITS/KG/HR 20.085 mls/hr IV .[id number] [facility] Rx#: [id number] Oral [id number] Other: Voiding Method Toilet Toilet Toilet # Voids 2 3 2 - Constitutional General appearance: Present: average body habitus, cooperative, no acute distress - EENT Eyes: Present: anicteric sclerae, EOMI ENT: Present: hearing grossly normal - Respiratory Details: Respirations even and unlabored at rest - Cardiovascular Details: Skin warm and dry to the touch, left pedal pulses palpable - Integumentary Integumentary: Present: normal - Neurologic Neurologic: Present: CNII-XII intact - Musculoskeletal Musculoskeletal: Present: strength equal bilaterally - Psychiatric Psychiatric: Present: A&O x's 3, appropriate affect, intact judgment & insight - Labs CBC & Chem 7: 10/09/23 07:03 10/09/23 07:03 Labs: Abnormal Lab Results - Last 24 Hours (Table) 10/10/23 Range/Units 08:15 APTT 71.5 H (22.0-30.0) sec Assessment and Plan (1) Pulmonary embolism Current Visit: Yes Status: Acute Priority: High Code(s): I26.99 - OTHER PULMONARY EMBOLISM WITHOUT ACUTE COR PULMONALE SNOMED Code(s): 17953826 (2) DVT (deep venous thrombosis) Current Visit: Yes Status: Acute Priority: Medium Code(s): I82.409 - ACUTE EMBOLISM AND THOMBOS UNSP DEEP VN UNSP LOWER EXTREMITY SNOMED Code(s): 902884759 Plan: Left lower extremity DVT, PE -Diagnosed with unprovoked DVT of LLE 09/23/2023, external iliac vein to the proximal calf vein -Admitted for lt chest pain, reported 1 missed dose of Eliquis, ongoing smoking. -CTA reported PE -Not convinced that this represents a failure of anticoagulation but, need to error on the side of caution. Pradaxa ordered. Copay verified. Will start tonight -Baseline doppler of RLE neg for DVT -Partial hypercoagulable workup inpt has reported and is negative. Negative for prothrombin gene mutation, cardiolipin antibodies are negative, Lupus anticoag ulant not detected. Additional workup will be completed in the outpatient setting -All of the above was discussed with the patient. Reviewed precautions while on anticoagulation including increased risk of bleeding and reporting of injury as soon as possible. Discussed the importance of taking medication every day as prescribed. Patient verbalized understanding. All questions were answered to his satisfaction. -Follow-up with Hematology in the discharge plan.
[2023-10-10] MEDS: DABIGATRAN 150 MG CAP PO SCH (21:07)
--- NOTE | 2023-10-11 00:30 | PN ---
PROGRESS NOTE DATE OF SERVICE: 10/10/2023 SUBJECTIVE: This is a 33-year-old gentleman who was admitted with pulmonary embolism and possible failure of the anticoagulation. He is on IV heparin. Hematology Oncology possibility of Pradaxa. No chest pain, no palpitations, no fever. OBJECTIVE: VITAL SIGNS: Pulse is 62, blood pressure /70, respirations 17. CHEST: Clear to auscultation. CARDIOVASCULAR: S1, S2. ABDOMEN: Soft. EXTREMITIES: Left calf swelling present. LABORATORY DATA: Reviewed. ASSESSMENT: 1. Acute pulmonary embolism, right side with possible failure of anticoagulation. 2. On IV heparin. 3. Left venous thrombosis with DVT of the legs, spontaneous unprovoked. 4. History of nephrolithiasis. 5. Hyponatremia. 6. History of substance abuse. 7. Nicotine dependence. RECOMMENDATIONS: Recommended to continue current management, continue symptomatic treatment. Continue with IV heparin. Possible Pradaxa. Otherwise, I would recommend repeat labs tomorrow. Closely follow with multiple consultants. Possible discharge in the next 24 hours. Further recommendations to follow. MMODL / IJN: [id number] /
[2023-10-11 08:31] VITALS: BP 113/71; PULSE 65; RESP 17; TEMP 98
[2023-10-11 08:47] LABS: Basophils % (A) 0 %; Eosinophils # (A) 0.3 k/uL (0-0.7); Eosinophils % (A) 4 %; HCT 41.4 % (39.0-53.0); HGB 13.4 gm/dL (13.0-17.5); Lymphocytes # (A) 1.8 k/uL (1.0-4.8); Lymphocytes % (A) 25 %; MCH 26.8 pg (25.0-35.0); MCHC 32.5 g/dL (31.0-37.0); MCV 82.6 fL (80.0-100.0); Mean Platelet Volume 9.2; Monocytes # (A) 0.4 k/uL (0-1.0); Monocytes % (A) 6 %; Neutrophils # (A) 4.5 k/uL (1.3-7.7); Neutrophils % (A) 64 %; Platelet Count 178 k/uL (150-450); RBC 5.02 m/uL (4.30-5.90); RDW 12.9 % (11.5-15.5); WBC 7.1 k/uL (3.8-10.6)
[2023-10-11 09:08] LABS: African American GFR (CKD) >90 (>60 ml/min/1.73 sqM); Anion Gap 6 mmol/L; Blood Urea Nitrogen 12 mg/dL (9-20); Calcium 9.1 mg/dL (8.4-10.2); Carbon Dioxide 25 mmol/L (22-30); Chloride 105 mmol/L (98-107); Glucose 137 mg/dL (74-99); Non-African American GFR(CKD) >90 (>60 ml/min/1.73 sqM); Sodium 136 mmol/L (137-145)
[2023-10-11 09:34] VITALS: BMI 33.5
--- NOTE | 2023-10-11 12:02 | P.PN ---
Subjective Progress Note Date: 10/11/23 Principal diagnosis: Acute pulmonary embolism and recent diagnosis of left-sided DVT left lower extremity 33-year-old male who was in the hospital back on September 22, for left leg swelling and pain. At that time, he was found to have a left-sided DVT. He was placed on Eliquis, and discharged. More recently, he comes back into the emergency room on October 05, complaining of shortness of breath, left-sided chest pain. A CT angiogram was positive for right-sided pulmonary embolism. The patient states that he had been taking his Eliquis as prescribed. The patient states that he did not take his morning Eliquis dose, the day that he came into the emergency room. He apparently was smoking a cigarette, and did not take it that day. The patient has a history of hypothyroidism, kidney stones, and a previous history of IV drug abuse with heroin. The patient does continue to smoke cigarettes. Current labs include a completely normal CBC, and a PTT of 65.1. Sodium 138, potassium 4.5, chlorides 103, CO2 31, BUN 11, creatinine 0.71. Glucose was 104. The rest of the labs look okay. The patient is currently on room air. The patient is receiving IV heparin. The patient was seen today October 08, 2023 in follow-up on the selective care unit. He is currently resting comfortably in bed. Awake and alert in no acute distress. He is currently on a heparin drip for his PE/left lower extremity DVT. White count 7.1. Hemoglobin 1213.2. Platelets 166. Sodium 133. Po tassium 4.0. Bicarb 25. BUN 12. Creatinine 0.70. The patient was seen today October 09 2023 in follow-up on the selective care unit. He is awake and alert in no acute distress. Sitting up in bed. Left leg elevated. He is maintaining good O2 saturations in the 90s on room air. He is afebrile. Hemodynamically stable. He denies any worsening shortness of breath, cough or congestion. No hemoptysis. He is continued on a heparin drip. White count 7 6. Potassium 4.2. Bicarb 23. BUN 12. Creatinine 0.69. The patient was seen and evaluated today October 10, 2023 in follow-up on the selective care unit. He is sitting up in bed. Awake and alert in no acute distress. Maintaining good O2 saturations in the 90s on room air. He is been afebrile. Hemodynamically stable. He remains on a heparin drip. The plan is to transition to Pradaxa. Patient was evaluated today on 10/11/2023, doing well, patient is going home today on Pradaxa. Asymptomatic no cough no wheezing or shortness of breath no chest pain. Objective - Vital Signs Vital signs: Vital Signs Temp 98 F 10/11/23 08:31 Pulse 65 10/11/23 08:31 Resp 17 10/11/23 08:31 BP 113/71 10/11/23 08:31 Pulse Ox 97 10/11/23 08:31 FiO2 Intake & Output 10/10/23 10/11/23 10/11/23 18:59 06:59 18:59 Intake Total 878 131.22 240 Balance 878 131.22 240 Weight 108.998 kg 108.998 kg Intake: Intake, IV Titration 131.22 Amount Heparin Sod,Pork in 0.45% 131.22 NaCl 25,000 unit In 0.45 % NaCl 1 250ml.bag @ 18 UNITS/KG/HR 20.085 mls/hr IV .[id number] [facility] Rx#: [id number] Oral 878 240 Other: Voiding Method Toilet Toilet Toilet # Voids 2 2 - Exam GENERAL EXAM: Alert, 33-year-old male, in no distress on room air HEAD: Normocephalic. EYES: Normal reaction of pupils, equal size. NOSE: Clear with pink turbinates. THROAT: No erythema or exudates. NECK: No masses, no JVD. CHEST: No chest wall deformity. LUNGS: Equal air entry with no crackles, wheeze, rhonchi or dullness. CVS: S1 and S2 normal with no audible murmur, regular rhythm. ABDOMEN: No hepatosplenomegaly, normal bowel sounds, no guarding or rigidity. SKIN: No rashes CENTRAL NERVOUS SYSTEM: Alert oriented x 3 no gross focal deficits EXTREMITIES: There is some left lower extremity edema. - Labs CBC & Chem 7: 10/11/23 08:19 10/11/23 08:19 Labs: Abnormal Lab Results - Last 24 Hours (Table) 10/11/23 Range/Units 08:19 Sodium 136 L (137-145) mmol/L Glucose 137 H (74-99) mg/dL Assessment and Plan Assessment: Impression: Acute pulmonary embolism, secondary to previous recent diagnosis of left-sided DVT Recent diagnosis of left lower extremity DVT. Treated with Eliquis History of kidney stones. History of polysubstance abuse. History of hypothyroidism. History of ongoing tobacco use with nicotine addiction. Recommendation: Agree with discharge planning Patient will be discharged home on Pradaxa and he is to take it lifetime. Patient to follow-up with hematology/oncology postdischarge Time with Patient: Less than 30
--- NOTE | 2023-10-11 15:59 | P.DS ---
Providers Date of admission: 10/06/23 18:47 Attending physician: Ashlee Willis Consults: 10/06/23 18:46 Consult Physician Routine Consulting Provider: Srini Blake Consult Reason/Comments: PE Do you want consulting provider notified?: Yes 10/06/23 19:53 Consult Physician Routine Consulting Provider: Alexandre Barrios Consult Reason/Comments: DVT and pulmonary embolism Do you want consulting provider notified?: Yes, Notify in am Primary care physician: Lana Tomas Hospital Course: Final Diagnosis History of DVT/PE Chronic nicotine use Hx of hypothyroidism Hx of kidney stones Hx of IV heroin use Discharge Disposition Patient stable for discharge home patient will continue on Pradaxa twice a day. Patient will continue all other same home medications. Follow up with Dr. Thomason, Dr Barrios and Dr. Tomas. Counseled on smoking cessations patient verbalizes understanding. Hospital Course 33-year-old male who was in the hospital back on September 22, for left leg swelling and pain. At that time, he was found to have a left-sided DVT. He was placed on Eliquis, and discharged. More recently, he comes back into the emergency room on October 05, complaining of shortness of breath, left-sided chest pain. A CT angiogram was positive for right-sided pulmonary embolism. The patient states that he had been taking his Eliquis as prescribed. The patient states that he did not take his morning Eliquis dose, the day that he came into the emergency room. Patient was admitted to the hospital with a consult placed to pulmonary and hematology services he was started on IV heparin drip. It was felt that this was not necessarily a medication issue however more of a noncompliance issue as well as continued nicotine use. Patient was changed from Eliquis to Pradaxa he has been maintained on room air with no further reports of chest pain or shortness of breath. He was cleared for discharge by pulmonary and hematology. Patient will continue to see hematology on an outpatient basis for further anticoagulation workup. So far his workup has been negative. Patient will be discharged home. Please see medication reconciliation for a list of current medications. Thank you for allowing us to participate in the care of this patient. The impression and plan of care has been dictated by Lexii Moreno, Nurse Practitioner as directed. Dr. Brook MD I have performed a history and physical examination and medical decision making of this patient, discussed the same with the dictator, and agree with the dictators assessment and plan as written, documented as a scribe. Based on total visit time, I have performed more than 50% of this visit. Patient Condition at Discharge: Fair Plan - Discharge Summary Discharge Rx Participant: Yes New Discharge Prescriptions: New Pantoprazole [Protonix] 40 mg PO AC-BRKFST #30 tab Dabigatran [Pradaxa] 150 mg PO BID #60 capsule Continue Topiramate [Topamax] 50 mg PO DAILY Sublocade 300mg/1.5ml 300 mg SQ Q28D Nicotine Polacrilex [Nicotine Gum] 4 mg BC QID [place] Carbonate [[place] Carbonate ER] 600 mg PO PC-SUPPER Desvenlafaxine Succinate [Pristiq ER] 50 mg PO DAILY ondansetron HCL [Zofran] 8 mg PO DAILY PRN PRN Reason: Nausea Mirtazapine [Remeron] 15 mg PO HS Levothyroxine Sodium [Synthroid] 75 mcg PO DAILY Discontinued Apixaban [Eliquis Starter Pack (for VTE)] See Taper PO DIRECTED Discharge Medication List Desvenlafaxine Succinate [Pristiq ER] 50 mg PO DAILY 10/06/23 [History] Levothyroxine Sodium [Synthroid] 75 mcg PO DAILY 10/06/23 [History] [place] Carbonate [[place] Carbonate ER] 600 mg PO PC-SUPPER 10/06/23 [History] Mirtazapine [Remeron] 15 mg PO HS 10/06/23 [History] Nicotine Polacrilex [Nicotine Gum] 4 mg BC QID 10/06/23 [History] Sublocade 300mg/1.5ml 300 mg SQ Q28D 10/06/23 [History] Topiramate [Topamax] 50 mg PO DAILY 10/06/23 [History] ondansetron HCL [Zofran] 8 mg PO DAILY PRN 10/06/23 [History] Dabigatran [Pradaxa] 150 mg PO BID #60 capsule 10/10/23 [Rx] Pantoprazole [Protonix] 40 mg PO AC-BRKFST #30 tab 10/11/23 [Rx] Follow up Appointment(s)/Referral(s): Diego Thomason MD [STAFF PHYSICIAN] - 11/07/23 1:45 pm Alexandre Barrios [STAFF PHYSICIAN] - 11/15/23 3:00 pm Lana Tomas MD [Primary Care Provider] - 1-2 days (please call to schedule ) Patient Instructions/Handouts: Pulmonary Embolism (DC), Deep Vein Thrombosis (DC) Discharge Disposition: HOME SELF-CARE
== END 2023-10-11 11:51 | disposition home or self-care (01) | DRG 134 ==
LOC: EC 14:09 → 3SCARD 18:47
PROVIDERS: ADMIT Hospitalist; ATTEND Hospitalist
DX: I26.99 Other pulmonary embolism without acute cor pulmonale (principal); I82.422 Acute embolism and thrombosis of left iliac vein; F17.210 Nicotine dependence, cigarettes, uncomplicated; Z71.6 Tobacco abuse counseling; F11.11 Opioid abuse, in remission; E03.9 Hypothyroidism, unspecified; E87.1 Hypo-osmolality and hyponatremia; F13.11 Sedative, hypnotic or anxiolytic abuse, in remission; F15.11 Other stimulant abuse, in remission; F14.11 Cocaine abuse, in remission; F10.10 Alcohol abuse, uncomplicated; F31.9 Bipolar disorder, unspecified; R09.02 Hypoxemia; Z79.01 Long term (current) use of anticoagulants; Z79.890 Hormone replacement therapy; Z79.899 Other long term (current) drug therapy; Z86.718 Personal history of other venous thrombosis and embolism; Z87.442 Personal history of urinary calculi; Z91.199 Patient's noncompliance with other medical treatment and regimen due to unspecified reason; Z28.310 Unvaccinated for COVID-19; Z28.21 Immunization not carried out because of patient refusal
CPT/HCPCS: 36415; 71275; 80048; 80053; 81003; 81240; 81241; 85025; 85610; 85613; 85652; 85730; 86140; 86147; 87636; 93005; 93306; 93970; 96365; 96366; 99291